=== PATIENT | female | born 1945 | race Caucasian/White ===

== ENCOUNTER → 2018-05-08 12:09 | Outpatient (CLI) | payer OTHER, SELFPAY ==
[2018-05-08 14:14] LABS: Cholesterol 195 mg/dL (140-199); HDL Cholesterol 69 mg/dL (40-60); LDL Cholesterol Calculated 102 mg/dL (<100); Triglycerides 122 mg/dL (35-150)
== END ==
PROVIDERS: PCP Family Medicine; Visit Provider Internal Medicine Cardiovascular Disease
DX: I10 Essential (primary) hypertension (principal)
CPT/HCPCS: 36415; 80061

== ENCOUNTER → 2018-08-16 11:33 | Outpatient (CLI) | payer OTHER, SELFPAY ==
--- NOTE | 2018-08-16 | DI.MG.S_ITS ---
BILATERAL DIGITAL SCREENING MAMMOGRAM 3D/2D WITH CAD: 08/16/2018 CLINICAL: Routine screening. Family history of breast cancer. Comparison is made to exams dated: 08/09/2017 mammogram, 08/02/2016 mammogram, and 08/01/2015 mammogram - [facility]. The tissue of both breasts is heterogeneously dense. This may lower the sensitivity of mammography. Current study was also evaluated with a Computer Aided Detection (CAD) system. There is a mole marker on the right breast. No significant masses, calcifications, or other findings are seen in either breast. There has been no significant interval change. IMPRESSION: NEGATIVE There is no mammographic evidence of malignancy. A 1 year screening mammogram is recommended. This exam was interpreted at Station ID: [id number]. NOTE: For mammograms, a report in lay terms will be sent to the patient. Approximately 15% of breast malignancies will not be visualized mammographically. In the management of a palpable breast mass, a negative mammogram must not discourage biopsy of a clinically suspicious lesion. Electronically Signed By: Heron beck/fritz:08/18/2018 17:39:32 letter sent: Normal Exam ACR BI-RADS Category 1: Negative 3341F
== END ==
PROVIDERS: PCP Family Medicine; Visit Provider Family Medicine
DX: Z12.31 Encounter for screening mammogram for malignant neoplasm of breast (principal); Z80.3 Family history of malignant neoplasm of breast
CPT/HCPCS: 77063; 77067

== ENCOUNTER → 2018-09-11 13:15 | Outpatient (CLI) | payer OTHER, SELFPAY ==
[2018-09-11 13:58] LABS: Add Manual Diff / Slide Review NO; Basophils Absolute Auto 100 /uL (0-100); Basophils Percent Auto 1.2 % (0-2); Eosinophils Absolute Auto 100 /uL (0-450); Eosinophils Percent Auto 1.3 % (2-4); Hematocrit 40.1 % (36-46); Lymphocytes Absolute Auto 1900 /uL (1100-4500); Lymphocytes Percent Auto 40.7 % (25-40); Mean Corpuscular HGB Conc 32.5 % (30-36); Mean Corpuscular Hemoglobin 29.9 PG (26-34); Monocytes Absolute Auto 400 /uL (0-900); Monocytes Percent Auto 8.1 % (3-14); Neutrophils Absolute Auto 2200 /uL (1500-7000); Neutrophils Percent Auto 48.7 % (50-75); Platelet Count 233 X10^3/uL (150-400); Red Blood Cell Count 4.36 X10^6/uL (4.0-5.2); Red Cell Distribution Width 14.6 % (11.6-14.8); White Blood Cell Count 4.6 X10^3/uL (4.5-11.0)
[2018-09-11 14:14] LABS: Alanine Aminotransferase 27 IU/L (9-52); Albumin 4.3 g/dL (3.5-5.0); Albumin Globulin Ratio 1.7 (1.0-2.8); Alkaline Phosphatase 72 U/L (38-126); Aspartate Aminotransferase 24 IU/L (14-36); BUN Creatinine Ratio 28.8 (6-22); Bilirubin Total 0.4 mg/dL (0.2-1.3); Blood Urea Nitrogen 23 mg/dL (7-17); Calcium 10.1 mg/dL (8.4-10.2); Carbon Dioxide 28 mmol/L (22-32); Chloride 103 mmol/L (98-107); Estimated Glomerular Filt Rate > 60.0 mL/min (>60); Globulin 2.6 g/dL (1.7-4.1); Glucose 107 mg/dL (80-110); HEMOLYSIS < 15 (0-50); Potassium 4.1 mmol/L (3.4-5.1); Sodium 140 mmol/L (137-145); Total Protein 6.9 g/dL (6.3-8.2)
[2018-09-11 15:18] LABS: Folate 8.8 ng/mL (2.76-20.0); Vitamin B12 634 pg/mL (239-931)
== END ==
PROVIDERS: PCP Family Medicine; Visit Provider Family Medicine
DX: G62.9 Polyneuropathy, unspecified (principal)
CPT/HCPCS: 36415; 80053; 82607; 82746; 85025

== ENCOUNTER → 2019-01-08 11:27 | Outpatient (CLI) | payer OTHER, SELFPAY ==
[2019-01-08 14:05] LABS: Hematocrit 38.6 % (36-46); Hemoglobin 12.7 g/dL (12.0-16.0); Mean Corpuscular HGB Conc 32.9 % (30-36); Mean Corpuscular Hemoglobin 29.5 PG (26-34); Mean Corpuscular Volume 89.5 fL (80-100); Platelet Count 236 X10^3/uL (150-400); Red Blood Cell Count 4.31 X10^6/uL (4.0-5.2); Red Cell Distribution Width 14.4 % (11.6-14.8)
[2019-01-08 14:49] LABS: Blood Urea Nitrogen 25 mg/dL (7-17); Calcium 10.5 mg/dL (8.4-10.2); Carbon Dioxide 26 mmol/L (22-32); Chloride 104 mmol/L (98-107); Estimated Glomerular Filt Rate 54.1 mL/min (>60); Glucose 93 mg/dL (80-110); HEMOLYSIS < 15 (0-50); Potassium 4.1 mmol/L (3.4-5.1); Sodium 141 mmol/L (137-145)
== END ==
PROVIDERS: PCP Family Medicine; Visit Provider Family Medicine
DX: R42 Dizziness and giddiness (principal)
CPT/HCPCS: 36415; 80048; 85027

== ENCOUNTER 2019-09-13 20:07 | Emergency (ER) | payer OTHER, SELFPAY ==
[2019-09-13] VITALS (7 sets, daily range): BP systolic 109–133; BP diastolic 65–81; PULSE 58–112; RESP 9–19; TEMP 36.7; O2SAT 95–99
--- NOTE | 2019-09-13 20:17 | DI.RAD.S_ITS ---
PROCEDURE: XR CHEST 1V INDICATIONS: chest pain TECHNIQUE: One view of the chest was acquired. COMPARISON: [facility], CR, XR CHEST 1 VIEW, 02/08/2018, 13:46. FINDINGS: Surgical changes and devices: None. Lungs and pleura: Lungs are clear. No pleural effusions or pneumothorax. Mediastinum: Mediastinal contours appear normal. Heart size is normal. Bones and chest wall: No suspicious bony lesions. Overlying soft tissues appear unremarkable. IMPRESSION: No acute cardiopulmonary abnormality. Dictated by: Neftaly Crane M.D. on 09/13/2019 at 20:47 Approved by: Neftaly Crane M.D. on 09/13/2019 at 20:48
[2019-09-13 20:30] LABS: Add Manual Diff / Slide Review NO; Basophils Absolute Auto 100 /uL (0-100); Basophils Percent Auto 1.4 % (0-2); Eosinophils Absolute Auto 100 /uL (0-450); Eosinophils Percent Auto 1.4 % (2-4); Hematocrit 37.6 % (36-46); Hemoglobin 12.9 g/dL (12.0-16.0); Lymphocytes Absolute Auto 1700 /uL (1100-4500); Mean Corpuscular HGB Conc 34.3 % (30-36); Mean Corpuscular Volume 90.3 fL (80-100); Monocytes Absolute Auto 400 /uL (0-900); Monocytes Percent Auto 7.7 % (3-14); Neutrophils Absolute Auto 2500 /uL (1500-7000); Neutrophils Percent Auto 52.5 % (50-75); Platelet Count 220 X10^3/uL (150-400); Red Blood Cell Count 4.16 X10^6/uL (4.0-5.2); Red Cell Distribution Width 14.7 % (11.6-14.8); White Blood Cell Count 4.7 X10^3/uL (4.5-11.0)
[2019-09-13] MEDS: SODIUM CHLORIDE 0.9% 1,000 ML 150 ML IV (20:35)
[2019-09-13 20:42] LABS: Blood Urea Nitrogen 24 mg/dL (7-17); Calcium 10.3 mg/dL (8.4-10.2); Carbon Dioxide 24 mmol/L (22-32); Chloride 107 mmol/L (98-107); Creatine Kinase 41 U/L (30-135); Estimated Glomerular Filt Rate > 60.0 mL/min (>60); Glucose 122 mg/dL (80-110); HEMOLYSIS 30 (0-50); Magnesium 1.9 mg/dL (1.6-2.3); Potassium 3.6 mmol/L (3.4-5.1); Sodium 139 mmol/L (137-145)
[2019-09-13 20:51] LABS: D Dimer < 200 ng/mL (<230)
[2019-09-13 20:54] LABS: Troponin I < 0.012 ng/mL (0.01-0.034)
[2019-09-13 21:29] LABS: Thyroid Stimulating Hormone 2.51 uIU/mL (0.47-4.68)
--- NOTE | 2019-09-13 22:52 | ED.ARRPALP ---
HPI - Arrhythmia/Palpitations General Chief Complaint: Arrhythmia/Palpitations Stated Complaint: AFIB episode Time Seen by Provider: 09/13/19 20:07 Source: patient Mode of arrival: Family Vehicle Limitations: no limitations History of Present Illness HPI narrative: 73-year-old female former smoker with a history AFib and hypertension presents with her in the chief complaint of palpitations, rapid heart rate and some shortness of breath which started about 12 hours ago. She is anticoagulated and states this is very reminiscent of prior episodes of AFib. She denies any chest pain. She denies fever or chills. She denies any nausea, vomiting or diarrhea. MD complaint: rapid heart beat and palpitations Onset (ago): hour(s) Duration: constant Severity: moderate Arrhythmia history: atrial fibrillation Related Data Home Medications Medication Instructions Recorded Confirmed ATENOLOL (Tenormin) 25 mg PO EVERY DAY #0 10/21/10 Losartan Potassium (Cozaar) 0 mg PO BID #0 10/21/10 Venlafaxine Hydrochloride (Effexor) 150 mg PO Q DAY #0 10/21/10 Allergies Allergy/AdvReac Type Severity Reaction Status Date / Time azithromycin [AZITHROMYCIN] Allergy Unknown Verified 09/13/19 20:20 iodine [IODINE] Allergy Unknown Verified 09/13/19 20:20 Review of Systems Constitutional Constitutional: Denies chills, Denies fatigue, Denies fever(s), Denies frequent falls, Denies lethargy and Denies weakness Eyes Eyes: Denies change in vision, Denies eye discharge, Denies irritation and Denies loss of vision ENT Ears, Nose, Mouth, and Throat: Denies change in voice, Denies dizziness, Denies neck pain, Denies sore throat and Denies throat swelling Cardiovascular Cardiovascular: Denies chest pain, Reports rapid heart rate, Reports irregular heart rhythm, Denies lightheadedness, Reports palpitations, Denies dyspnea, Denies dyspnea on exertion and Denies orthopnea Respiratory Respiratory: Denies cough, Denies dyspnea, Denies dyspnea on exertion and Denies wheezing Gastrointestinal Gastrointestinal: Denies abdominal pain, Denies change in bowel habits, Denies diarrhea, Denies nausea and Denies vomiting Genitourinary Genitourinary: Denies hematuria, Denies flank pain, Denies urinary incontinence and Denies urinary urgency Musculoskeletal Musculoskeletal: Denies back pain, Denies muscle weakness, Denies neck pain, Denies numbness and Denies tingling Integumentary/Breasts Skin/Breast: Denies pruritus, Denies erythema, Denies rash and Denies wounds Neurologic Neurologic: Denies behavioral changes, Denies confusion, Denies dizziness, Denies frequent falls, Denies loss of vision, Denies numbness, Denies tingling and Denies weakness Psychiatric Psychiatric: Denies anxiety, Denies behavioral changes, Denies confusion, Denies depression, Denies homicidal ideation and Denies suicidal ideation Endocrine Endocrine: Denies fatigue, Denies flushing and Reports palpitations Hematologic/Lymphatic Hematologic/Lymphatic: Denies easy bruising Allergic/Immunologic Allergic/Immunologic: Denies urticaria, Denies throat swelling and Denies wheezing Patient History Social History Smoking Status: Former smoker Smoking Status: Former smoker alcohol intake frequency: 0-2 drinks per day Alcohol type: wine Substance Use Type: does not use Exam Narrative Exam Narrative: GENERAL: [73] year old patient appears stated age. Well-nourished, well-developed patient, in mild distress. HEAD: Atraumatic. Normocephalic. EYES: Pupils equal round and reactive. Extraocular motions intact. No scleral icterus. No injection or drainage. ENT: Nose without bleeding, purulent drainage. Throat without erythema, tonsillar hypertrophy or exudate. Airway patent. NECK: Trachea midline. Non tender CARDIOVASCULAR: Regular rate and rhythm without murmurs, gallops, or rubs. RESPIRATORY: Clear to auscultation. Breath sounds equal bilaterally. No wheezes, rales, or rhonchi. GASTROINTESTINAL: Abdomen soft, non-tender, nondistended. EXTREMITIES: No edema or joint tenderness. BACK: Nontender without deformity or crepitance. No flank tenderness. NEURO: AOx3. SKIN: No rash or erythema of visible areas Initial Vital Signs Initial Vital Signs: Vital Signs Temperature 98.1 F 09/13/19 20:17 Pulse Rate 99 H 09/13/19 20:17 Respiratory Rate 18 09/13/19 20:17 Blood Pressure 133/81 09/13/19 20:17 Pulse Oximetry 99 09/13/19 20:17 Course Orders Ordered: ED Orders 09/13/19 22:45 Troponin I Stat 09/14/19 EKG-12 Lead Stat Discontinued Medications Sodium Chloride (Normal Saline 0.9%) 1,000 mls @ 150 mls/hr IV CONT JAMIE Last Admin: 09/13/19 20:35 Dose: 150 mls/hr Documented by: SALVADOR Vital Signs Vital signs: Vital Signs - 8 hr 09/13/19 22:58 09/13/19 23:24 09/14/19 00:26 Pulse Rate 89 58 L 62 Respiratory Rate 13 13 15 Blood Pressure [Left Arm] 116/81 117/70 123/63 Pulse Oximetry 96 94 MDM - Arrhythmia/Palpitations Lab Data Result diagrams: 09/13/19 20:20 09/13/19 20:20 Labs: Lab Results 09/13/19 09/13/19 09/13/19 Range/Units 20:20 20:20 20:20 WBC 4.7 (4.5-11.0) X10^3/uL RBC 4.16 (4.0-5.2) X10^6/uL Hgb 12.9 (12.0-16.0) g/dL Hct 37.6 (36-46) % MCV 90.3 (80-100) fL MCH 31.0 (26-34) PG MCHC 34.3 (30-36) % RDW 14.7 (11.6-14.8) % Plt Count 220 (150-400) X10^3/uL Neut % (Auto) 52.5 (50-75) % Lymph % (Auto) 37.0 (25-40) % [place] % (Auto) 7.7 (3-14) % Eos % (Auto) 1.4 L (2-4) % Baso % (Auto) 1.4 (0-2) % Neut # (Auto) 2500 (5678-2206) /uL Lymph # (Auto) 1700 (4067-3681) /uL [place] # (Auto) 400 (0-900) /uL Eos # (Auto) 100 (0-450) /uL Baso # (Auto) 100 (0-100) /uL D-Dimer (<230) ng/mL Sodium 139 (137-145) mmol/L Potassium 3.6 (3.4-5.1) mmol/L Chloride 107 (98-107) mmol/L Carbon Dioxide 24 (22-32) mmol/L BUN 24 H (7-17) mg/dL Creatinine 0.80 (0.52-1.04) mg/dL Estimated GFR > 60.0 (>60) mL/min BUN/Creatinine Ratio 30.0 H (6-22) Glucose 122 H (80-110) mg/dL Calcium 10.3 H (8.4-10.2) mg/dL Magnesium 1.9 (1.6-2.3) mg/dL Total Creatine Kinase 41 (30-135) U/L CK-MB (CK-2) TNP CK-MB (CK-2) Rel Index TNP Troponin I < 0.012 (0.01-0.034) ng/mL TSH 2.51 (0.47-4.68) uIU/mL 09/13/19 09/13/19 Range/Units 20:20 22:45 WBC (4.5-11.0) X10^3/uL RBC (4.0-5.2) X10^6/uL Hgb (12.0-16.0) g/dL Hct (36-46) % MCV (80-100) fL MCH (26-34) PG MCHC (30-36) % RDW (11.6-14.8) % Plt Count (150-400) X10^3/uL Neut % (Auto) (50-75) % Lymph % (Auto) (25-40) % [place] % (Auto) (3-14) % Eos % (Auto) (2-4) % Baso % (Auto) (0-2) % Neut # (Auto) (0035-9413) /uL Lymph # (Auto) (2691-4774) /uL [place] # (Auto) (0-900) /uL Eos # (Auto) (0-450) /uL Baso # (Auto) (0-100) /uL D-Dimer < 200 (<230) ng/mL Sodium (137-145) mmol/L Potassium (3.4-5.1) mmol/L Chloride (98-107) mmol/L Carbon Dioxide (22-32) mmol/L BUN (7-17) mg/dL Creatinine (0.52-1.04) mg/dL Estimated GFR (>60) mL/min BUN/Creatinine Ratio (6-22) Glucose (80-110) mg/dL Calcium (8.4-10.2) mg/dL Magnesium (1.6-2.3) mg/dL Total Creatine Kinase (30-135) U/L CK-MB (CK-2) CK-MB (CK-2) Rel Index Troponin I < 0.012 (0.01-0.034) ng/mL TSH (0.47-4.68) uIU/mL ECG Data Attestation: I personally reviewed and interpreted this ECG as follows: Interpretation: EKG is normal sinus rhythm rate [ 96] and free of any signs of ischemia or ectopy. No ST segmental elevation or depression. No T wave inversions MDM Narrative Medical decision making narrative: Based on patient's history and symptoms initial concern was for rapid AFib, initial EKG notes sinus tachycardia. Labs were very reassuring including 2 troponins. Patient's heart rate gradually slowed back to her normal at about 60 and patient was completely asymptomatic. Multiple etiologies including resolved AFib, pulmonary embolism, cardiac ischemia considered but thought less likely given labs, imaging and EKG. Discharge Plan Departure Patient Disposition: Home Clinical Impression: Sinus tachycardia, Palpitations Discharge Date/Time: 09/14/19 00:59 Instructions: Arrhythmias Activity Restrictions/Additional Instructions: *You have been diagnosed with [palpitations, relative tachycardia] *What to do: *Take medications as directed *Follow up with your primary care provider on Saturday as planned. Let them know you were seen in the Emergency Department and that we ask that you be seen in follow up *Return to ER if you should have any new, worsening or concerning symptoms Prescriptions: No Action ATENOLOL (Tenormin) 25 mg PO EVERY DAY Qty: 0 RF: 0 Losartan Potassium (Cozaar) 0 mg PO BID Qty: 0 RF: 0 Venlafaxine Hydrochloride (Effexor) 150 mg PO Q DAY Qty: 0 RF: 0 Referrals: Stella Aldrich MD [Primary Care Provider] -
[2019-09-13 23:14] LABS: Troponin I < 0.012 ng/mL (0.01-0.034)
[2019-09-14 00:26] VITALS: BP 123/63; PULSE 62; RESP 15; O2SAT 94
== END 2019-09-14 00:59 | disposition home or self-care (01) ==
PROVIDERS: Emergency Provider Emergency Medicine; PCP Family Medicine
DX: R00.0 Tachycardia, unspecified (principal); R00.2 Palpitations
CPT/HCPCS: 36415; 71045; 80048; 82550; 83735; 84443; 84484; 85025; 85379; 93005; 93010; 99284; 99285

== ENCOUNTER → 2019-09-21 11:43 | Outpatient (CLI) | payer OTHER, SELFPAY ==
--- NOTE | 2019-09-21 | DI.MG.S_ITS ---
BILATERAL DIGITAL SCREENING MAMMOGRAM 3D/2D WITH CAD: 09/21/2019 CLINICAL: Routine screening. Family history of breast cancer. Comparison is made to exams dated: 08/16/2018 mammogram, 08/09/2017 mammogram, and 08/02/2016 mammogram - [facility]. The tissue of both breasts is heterogeneously dense. This may lower the sensitivity of mammography. Current study was also evaluated with a Computer Aided Detection (CAD) system. There is a mole marker on the right breast. No significant masses, calcifications, or other findings are seen in either breast. There has been no significant interval change. IMPRESSION: NEGATIVE There is no mammographic evidence of malignancy. A 1 year screening mammogram is recommended. This exam was interpreted at Station ID: [id number]. NOTE: For mammograms, a report in lay terms will be sent to the patient. Approximately 15% of breast malignancies will not be visualized mammographically. In the management of a palpable breast mass, a negative mammogram must not discourage biopsy of a clinically suspicious lesion. Electronically Signed By: Johnathan quiñonez/fritz:09/21/2019 15:04:46 letter sent: Normal Exam ACR BI-RADS Category 1: Negative 3341F
== END ==
PROVIDERS: PCP Family Medicine; Visit Provider Family Medicine
DX: Z12.31 Encounter for screening mammogram for malignant neoplasm of breast (principal); Z80.3 Family history of malignant neoplasm of breast
CPT/HCPCS: 77063; 77067

== ENCOUNTER → 2020-10-17 15:56 | Outpatient (CLI) | payer OTHER, SELFPAY ==
[2020-10-17 17:20] LABS: BUN Creatinine Ratio 21.6 (6-22); Blood Urea Nitrogen 21 mg/dL (7-17); Calcium 9.9 mg/dL (8.4-10.2); Carbon Dioxide 29 mmol/L (22-32); Chloride 104 mmol/L (98-107); Estimated Glomerular Filt Rate 55.8 mL/min (>60); Glucose 97 mg/dL (80-110); HEMOLYSIS < 15 (0-50); Magnesium 2.2 mg/dL (1.6-2.3); Potassium 4.1 mmol/L (3.4-5.1); Sodium 138 mmol/L (137-145)
[2020-10-17 18:59] LABS: Free T4, Direct Thyroxine 1.08 ng/dL (0.78-2.19)
== END ==
PROVIDERS: PCP Family Medicine; Referring Provider Psychiatry & Neurology Neurology; Visit Provider Psychiatry & Neurology Neurology
DX: E83.42 Hypomagnesemia (principal); I48.91 Unspecified atrial fibrillation
CPT/HCPCS: 36415; 80048; 83735; 84439; 84443

== ENCOUNTER → 2020-10-19 08:56 | Outpatient (CLI) | payer OTHER, SELFPAY ==
[2020-10-19 10:25] LABS: Glucose Fasting 104 mg/dL (80-110)
[2020-10-19 11:21] LABS: Glucose Tol Interpretation INTERPRETATION
[2020-10-19 11:26] LABS: Glucose 1 Hour 174 mg/dL (70-170)
[2020-10-19 12:01] LABS: Glucose 2 Hour 109 mg/dL (70-140)
== END ==
PROVIDERS: PCP Family Medicine; Referring Provider Psychiatry & Neurology Neurology; Visit Provider Psychiatry & Neurology Neurology
DX: G60.9 Hereditary and idiopathic neuropathy, unspecified (principal)
CPT/HCPCS: 36415; 82951; 82952

== ENCOUNTER → 2020-12-26 11:29 | Outpatient (CLI) | payer OTHER, SELFPAY ==
--- NOTE | 2020-12-26 | DI.MG.S_ITS ---
BILATERAL DIGITAL SCREENING MAMMOGRAM 3D/2D WITH CAD: 12/26/2020 CLINICAL: Routine screening. Family history of breast cancer. Comparison is made to exams dated: 09/21/2019 mammogram, 08/16/2018 mammogram, and 08/09/2017 mammogram - [facility]. The tissue of both breasts is heterogeneously dense. This may lower the sensitivity of mammography. Current study was also evaluated with a Computer Aided Detection (CAD) system. There is a mole marker on the right breast. No significant masses, calcifications, or other findings are seen in either breast. There has been no significant interval change. IMPRESSION: NEGATIVE There is no mammographic evidence of malignancy. A 1 year screening mammogram is recommended. This exam was interpreted at Station ID: [id number]. NOTE: For mammograms, a report in lay terms will be sent to the patient. Approximately 15% of breast malignancies will not be visualized mammographically. In the management of a palpable breast mass, a negative mammogram must not discourage biopsy of a clinically suspicious lesion. Electronically Signed By: Romulo Edwards M.D., jr/fritz:12/26/2020 14:49:19 letter sent: Normal Exam ACR BI-RADS Category 1: Negative 3341F
[2020-12-27 16:59] LABS: Deamidated Gliadin Ab IgA 3 units (0-19); Deamidated Gliadin Ab IgG <1 units (0-19); Immunoglobulin A,Qn 238 mg/dL (64-422); t-Transglutaminase IgA <2 U/mL (0-3)
[2020-12-28 02:37] LABS: Vitamin B6 57.4 ug/L (2.0-32.8)
== END ==
PROVIDERS: PCP Family Medicine; Referring Provider Family Medicine; Visit Provider Family Medicine
DX: Z12.31 Encounter for screening mammogram for malignant neoplasm of breast (principal); Z80.3 Family history of malignant neoplasm of breast; G60.9 Hereditary and idiopathic neuropathy, unspecified
CPT/HCPCS: 36415; 77063; 77067; 82784; 83516; 83655; 84207

== ENCOUNTER → 2021-01-11 11:58 | Outpatient (CLI) | payer OTHER, SELFPAY ==
--- NOTE | 2021-01-11 12:00 | DI.MRI.S_ITS ---
PROCEDURE: MR LUMBAR SPINE WO CON INDICATIONS: Lumbago with sciatica, left side TECHNIQUE: Noncontrast sagittal T1 spin echo and T2 fast echo, sagittal STIR, axial T1 and T2 fast spin echo through the lumbar spine. In cases with scoliosis, additional coronal T2 fast spin echo may be performed. COMPARISON: None. FINDINGS: Image quality: Excellent. Alignment and Curvature: Grade 1 retrolisthesis of T12 on L1. Grade 1 anterolisthesis of L4 on L5. Bone Marrow: No evidence of acute fracture. There are scattered small Schmorl's nodes which appear chronic. Spinal Cord: Conus medullaris terminates at the L1 level. Visualized cord demonstrates normal signal and size. Paraspinous Soft Tissues: No paravertebral masses. There is nonspecific, dependent posterior subcutaneous soft tissue edema from level of L2-L5 level T12-L1: Mild canal narrowing. Lateral recesses appear patent. Moderate bilateral foraminal stenoses. L1-L2: Minimal canal narrowing. Lateral recesses appear grossly patent. Mild bilateral foraminal stenoses L2-L3: Dorsal epidural lipomatosis is noted. There is [id number] canal narrowing. Mild left foraminal stenosis. Moderate left foraminal narrowing with nerve root compression. L3-L4: Moderate to severe canal narrowing. Partial effacement of both lateral recesses with bilaterally symmetric appearance. Mild left foraminal stenosis with slight nerve root compression. Mild right foraminal narrowing. Minimal dorsal epidural lipomatosis is seen. L4-L5: Severe canal stenosis. Near complete effacement of both lateral recesses with bilaterally symmetric appearance. Mild right foraminal narrowing. Minimal left foraminal stenosis. L5-S1: [id number] canal narrowing. Partial effacement of both lateral recesses with bilaterally symmetric appearance. Severe bilateral foraminal stenoses with nerve root compression. IMPRESSION: Diffuse lumbar spondylosis and facet arthropathy with moderate to severe canal narrowing at L3-L4, and severe canal stenosis at L4-L5. Numerous bilateral foraminal stenoses as detailed above by spinal level, most severe at L5-S1 . Dictated by: Christopher Kumar M.D. on 01/11/2021 at 12:48 Approved by: Christopher Kumar M.D. on 01/11/2021 at 12:56
== END ==
PROVIDERS: PCP Family Medicine; Referring Provider Psychiatry & Neurology Neurology; Visit Provider Psychiatry & Neurology Neurology
DX: M54.42 Lumbago with sciatica, left side (principal); M47.816 Spondylosis without myelopathy or radiculopathy, lumbar region; M48.061 Spinal stenosis, lumbar region without neurogenic claudication; M48.07 Spinal stenosis, lumbosacral region; G60.9 Hereditary and idiopathic neuropathy, unspecified; N39.46 Mixed incontinence; G89.29 Other chronic pain
CPT/HCPCS: 72148

== ENCOUNTER 2021-03-02 10:46 | Emergency (ER) | payer OTHER, SELFPAY ==
[2021-03-02] VITALS (8 sets, daily range): BP systolic 132–164; BP diastolic 62–69; PULSE 53–60; RESP 12–20; O2SAT 96–99
--- NOTE | 2021-03-02 10:59 | DI.RAD.S_ITS ---
PROCEDURE: XR CHEST 1V INDICATIONS: chest pain TECHNIQUE: One view of the chest was acquired. COMPARISON: [facility], CR, XR CHEST 1V, 09/13/2019, 20:31. FINDINGS: Surgical changes and devices: None. Lungs and pleura: Lungs are mildly abnormal with a slight degree of interstitial prominence perhaps reflecting prior smoking. This is stable over time.. No pleural effusions or pneumothorax. Mediastinum: Mediastinal contours appear normal. Heart size is normal. Bones and chest wall: No suspicious bony lesions. Overlying soft tissues appear unremarkable. IMPRESSION: Mild interstitial prominence, possible prior smoking history. A definite source of new chest pain is not found, however. Dictated by: Roel Kennedy M.D. on 03/02/2021 at 11:27 Approved by: Roel Kennedy M.D. on 03/02/2021 at 11:37
[2021-03-02 11:22] LABS: Add Manual Diff / Slide Review NO; Basophils Absolute Auto 100 /uL (0-100); Basophils Percent Auto 1.2 % (0-2); Eosinophils Absolute Auto 100 /uL (0-450); Eosinophils Percent Auto 1.7 % (2-4); Hematocrit 36.6 % (36-46); Hemoglobin 12.1 g/dL (12.0-16.0); Lymphocytes Absolute Auto 1200 /uL (1100-4500); Lymphocytes Percent Auto 26.9 % (25-40); Mean Corpuscular HGB Conc 32.9 % (30-36); Mean Corpuscular Hemoglobin 30.5 PG (26-34); Mean Corpuscular Volume 92.6 fL (80-100); Monocytes Absolute Auto 300 /uL (0-900); Monocytes Percent Auto 7.7 % (3-14); Neutrophils Absolute Auto 2800 /uL (1500-7000); Neutrophils Percent Auto 62.5 % (50-75); Platelet Count 214 X10^3/uL (150-400); Red Blood Cell Count 3.96 X10^6/uL (4.0-5.2); Red Cell Distribution Width 14.7 % (11.6-14.8); White Blood Cell Count 4.5 X10^3/uL (4.5-11.0)
[2021-03-02 11:39] LABS: Alanine Aminotransferase 16 IU/L (<35); Albumin 3.8 g/dL (3.5-5.0); Albumin Globulin Ratio 1.5 (1.0-2.8); Alkaline Phosphatase 78 U/L (38-126); Aspartate Aminotransferase 23 IU/L (14-36); BUN Creatinine Ratio 23.2 (6-22); Bilirubin Total 0.4 mg/dL (0.2-1.3); Blood Urea Nitrogen 22 mg/dL (7-17); Calcium 9.8 mg/dL (8.4-10.2); Carbon Dioxide 27 mmol/L (22-32); Chloride 110 mmol/L (98-107); Creatine Kinase 61 U/L (30-135); Globulin 2.5 g/dL (1.7-4.1); Glucose 104 mg/dL (80-110); HEMOLYSIS < 15 (0-50); Lipase 166 U/L (23-300); Potassium 4.2 mmol/L (3.4-5.1); Sodium 142 mmol/L (137-145); Total Protein 6.3 g/dL (6.3-8.2)
[2021-03-02 11:48] LABS: Troponin I < 0.012 ng/mL (0.01-0.034)
[2021-03-02 13:54] LABS: Troponin I < 0.012 ng/mL (0.01-0.034)
--- NOTE | 2021-03-02 14:14 | ED_ITS ---
HPI - Chest Pain General Chief Complaint: Chest Pain Stated Complaint: HEART ATTACK SYMPTOMS Time Seen by Provider: 03/02/21 12:22 Source: patient Mode of arrival: Ambulatory Limitations: no limitations History of Present Illness HPI narrative: This is a 75-year-old female comes emergency department with complaint of developing chest tightness and into her throat this morning about 0915. Patient states it continued for about 30 minutes and then resolved. She felt a little short of breath. She was not diaphoretic. She did not have any syncope but felt mildly lightheaded. No nausea or vomiting. No abdominal pain, no radiation of pain to her back, neck arm or abdomen. Patient states she has noticed some mild swelling in her feet which she saw her primary care for last week. Patient states she was traveling home have to having carpal tunnel test. Patient does have a history of hypertension and atrial fibrillation. Patient states she takes Pradaxa, metoprolol, amlodipine, flecainide as well as kelli lafaxine for an antidepressant. She has a history of bilateral knee replacement, she had a stress test in the last 2 years, she has never had a cardiac catheterization, no prior ablation, no cardiac stents. She follows with Dr. Loya for Cardiology at [facility]. Tobacco, occasional alcohol, no i llicit. Related Data Home Medications Medication Instructions Recorded Confirmed ATENOLOL (Tenormin) 25 mg PO EVERY DAY #0 10/21/10 Losartan Potassium (Cozaar) 0 mg PO BID #0 10/21/10 Venlafaxine Hydrochloride (Effexor) 150 mg PO Q DAY #0 10/21/10 Allergies Allergy/AdvReac Type Severity Reaction Status Date / Time azithromycin [AZITHROMYCIN] Allergy Unknown Verified 09/13/19 20:20 iodine [IODINE] Allergy Unknown Verified 09/13/19 20:20 Review of Systems Review of Systems ROS Unobtainable: All systems reviewed & are unremarkable except as noted in HPI and below Patient History Social History Smoking Status: Former smoker Smoking Status: Former smoker alcohol intake frequency: 0-2 drinks per day Alcohol type: wine Substance Use Type: does not use Exam Narrative Exam Narrative: GENERAL: Alert and oriented x three, female in mild distress. HEENT: Head normocephalic, atraumatic, EOMI, pupils reactive, face symmetric, moist mucous membranes NECK: Supple, full range of motion CARDIOVASCULAR: Regular rate and rhythm without murmurs, rubs or gallops. Non reproducible chest pain. RESPIRATORY: Breath sounds equal bilaterally, no wheezes rales or rhonchi. ABDOMEN: Soft, nontender. Normoactive bowel sounds all 4 quadrants. No guarding or rebound, rigidity, no mass : No CVA tenderness EXTREMITIES: Normal range of motion, mild pedal edema. Neurovascularly intact NEUROLOGICAL: Cranial nerves II through XII grossly intact. Moving all extremities SKIN: Warm, dry, no petechiae, no rashes or lesions. Initial Vital Signs Initial Vital Signs: Vital Signs Pulse Rate 60 03/02/21 10:59 Respiratory Rate 16 03/02/21 10:59 Blood Pressure 132/62 03/02/21 10:59 Pulse Oximetry 97 03/02/21 10:59 Course Orders Ordered: ED Orders 03/02/21 13:21 Troponin I Stat 03/02/21 13:46 EKG-12 Lead Stat Vital Signs Vital signs: Vital Signs - 8 hr 03/02/21 13:34 03/02/21 14:00 03/02/21 14:01 Pulse Rate 54 L 53 L 53 L Respiratory Rate 14 12 20 Blood Pressure 145/66 H 164/69 H Pulse Oximetry 98 96 97 03/02/21 14:30 03/02/21 14:31 03/02/21 15:00 Pulse Rate 53 L 53 L 58 L Respiratory Rate 19 17 15 Blood Pressure 155/68 H Pulse Oximetry 99 99 96 03/02/21 15:01 Pulse Rate 54 L Respiratory Rate 15 Blood Pressure 145/67 H Pulse Oximetry 98 MDM - Chest Pain Lab Data Result diagrams: 03/02/21 11:13 03/02/21 11:13 Labs: Lab Results 03/02/21 03/02/21 03/02/21 Range/Units 11:13 11:13 13:21 WBC 4.5 (4.5-11.0) X10^3/uL RBC 3.96 L (4.0-5.2) X10^6/uL Hgb 12.1 (12.0-16.0) g/dL Hct 36.6 (36-46) % MCV 92.6 (80-100) fL MCH 30.5 (26-34) PG MCHC 32.9 (30-36) % RDW 14.7 (11.6-14.8) % Plt Count 214 (150-400) X10^3/uL Neut % (Auto) 62.5 (50-75) % Lymph % (Auto) 26.9 (25-40) % [place] % (Auto) 7.7 (3-14) % Eos % (Auto) 1.7 L (2-4) % Baso % (Auto) 1.2 (0-2) % Neut # (Auto) 2800 (5203-6044) /uL Lymph # (Auto) 1200 (0274-5509) /uL [place] # (Auto) 300 (0-900) /uL Eos # (Auto) 100 (0-450) /uL Baso # (Auto) 100 (0-100) /uL Sodium 142 (137-145) mmol/L Potassium 4.2 (3.4-5.1) mmol/L Chloride 110 H (98-107) mmol/L Carbon Dioxide 27 (22-32) mmol/L BUN 22 H (7-17) mg/dL Creatinine 0.95 (0.52-1.04) mg/dL Estimated GFR 57.0 L (>60) mL/min BUN/Creatinine Ratio 23.2 H (6-22) Glucose 104 (80-110) mg/dL Calcium 9.8 (8.4-10.2) mg/dL Total Bilirubin 0.4 (0.2-1.3) mg/dL AST 23 (14-36) IU/L ALT 16 (<35) IU/L Alkaline Phosphatase 78 (38-126) U/L Total Creatine Kinase 61 (30-135) U/L CK-MB (CK-2) TNP CK-MB (CK-2) Rel Index TNP Troponin I < 0.012 < 0.012 (0.01-0.034) ng/mL Total Protein 6.3 (6.3-8.2) g/dL Albumin 3.8 (3.5-5.0) g/dL Globulin 2.5 (1.7-4.1) g/dL Albumin/Globulin Ratio 1.5 (1.0-2.8) Lipase 166 (23-300) U/L Imaging Data Chest x-ray: Radiologist's Impression: [address], [place] [id number] ReportSigned Patient: Velvet Kim TMR#: [id number]: [id number]:[id number]/Sex: 75 / FDate of Service: 03/02/21Loc: EDAccession Number: [id number] Procedure: XR chest 1V Ordering Provider: Fouzia Roach D.O. PROCEDURE: XR CHEST 1V INDICATIONS: chest pain TECHNIQUE: One view of the chest was acquired. COMPARISON: [facility], , XR CHEST 1V, 09/13/2019, 20:31. FINDINGS: Surgical changes and devices: None. Lungs and pleura: Lungs are mildly abnormal with a slight degree of interstitial prominence perhaps reflecting prior smoking. This is stable over time.. No pleural effusions or pneumothorax. Mediastinum: Mediastinal contours appear normal. Heart size is normal. Bones and chest wall: No suspicious bony lesions. Overlying soft tissues appear unremarkable. IMPRESSION: Mild interstitial prominence, possible prior smoking history. A definite source of new chest pain is not found, however. Dictated by: Roel Kennedy M.D. on 03/02/2021 at 11:27 Approved by: Roel Kennedy M.D. on 03/02/2021 at 11:37 ECG Data Interpretation: Sinus rhythm first-degree AV block, left axis deviation, incomplete right bundle branch. Rate of 61 P are 212 QRS of 100 and QTC of 412. EKG 2. Shows a sinus rhythm sinus bradycardia first-degree AV block. Incomplete right bundle, left fascicular, rate of 55, P are 212 QRS of 100 and QTC of 420. No acute ST elevation or depression appreciated. [facility] Narrative Medical decision making narrative: Discussed with patient her symptoms are somewhat concerning for cardiac cause. Her EKGs appears similar to prior from [address] or ischemic changes and patient has negative troponin x2. Labs do not show any other acute changes besides elevated chloride and BUN which is mildly elevated. Patient has some mild interstitial prominence on her chest x-ray. Discussed with patient offered observation for cardiac chest pain but she prefers to return home. Patient is aware of my concerns. She does have cardiology available for short-term follow-up and is aware that urgent follow- up is necessary. 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 Call today or tomorrow to set up follow-up for evaluation of chest pain. Continue home medications as prescribed. Please return for new or worsening chest pain, shortness of breath, lightheadedness or passing out, sweatiness or diaphoresis, nausea or vomiting, new or worsening swelling of her extremities or other new or concerning symptoms. Prescriptions: No Action ATENOLOL (Tenormin) 25 mg PO EVERY DAY Qty: 0 RF: 0 Losartan Potassium (Cozaar) 0 mg PO BID Qty: 0 RF: 0 Venlafaxine Hydrochloride (Effexor) 150 mg PO Q DAY Qty: 0 RF: 0 Referrals: Emi Prince DO [Primary Care Provider] - Lucero Loya MD [Physician] -
== END 2021-03-02 15:24 | disposition home or self-care (01) ==
PROVIDERS: Emergency Provider Emergency Medicine; PCP Family Medicine
DX: R07.9 Chest pain, unspecified (principal); R06.02 Shortness of breath; R60.9 Edema, unspecified
CPT/HCPCS: 36415; 71045; 80053; 82550; 83690; 84484; 85025; 93005; 99283; 99284

== ENCOUNTER → 2021-05-09 09:05 | Outpatient (CLI) | payer OTHER, SELFPAY ==
--- NOTE | 2021-05-09 | DI.ECHO.S_ITS ---
[facility] +---------+ : : [address] : [address] : : : : [id number] : : : : Phone: [phone] Echocardiogram Report + + :Name: JAIMIE WEBER Study Date: 05/09/2021 Height: 66 in : :[facility] ReadingLocation: Weight: 203 lb : : Gender: Female BSA: 2.0 m2 : :: 1945 Age: 75 yrs BP: 157/88 mmHg: :Reason For Study: ATRIAL FIBRILLATION : :Ordering Physician: MOISES, : :ADA Performed By: Madelyn Asif : :Referring: ADA DE LEON : + + Interpretation Summary Normal sinus rhythm. Normal LV size, wall thickness, wall motion and LV systolic function. EF is 60-65%. Moderate LA enlargement; otherwise normal chamber sizes. Aortic sclerosis without stenosis. Otherwise no valvular abnormalities. No prior study available for comparison. Procedure: A two-dimensional transthoracic echocardiogram with color flow and Doppler was performed. The study quality was technically adequate. There is no prior echocardiogram noted for this patient. The patient was in sinus bradycardia with heart rates between 57-60 bpm during the exam. Left Ventricle: The left ventricle is normal in size and wall thickness. The ejection fraction is estimated to be 60-65%. Right Ventricle: The right ventricle grossly appears normal in size with probable normal systolic function. Atria: The left atrium is moderately dilated. Right atrial size is normal. There is no Doppler evidence for an interatrial shunt. Mitral Valve: The mitral valve is normal in structure and function. There is mild mitral regurgitation. Aortic Valve: The aortic valve is trileaflet. The aortic valve opens well. There is no aortic valve stenosis. No aortic regurgitation is present. Tricuspid Valve: The tricuspid valve is normal in structure and function. There is mild tricuspid regurgitation. The right ventricular systolic pressure is estimated to be at least 26 mmHg based on an estimated right atrial pressure of 3 mm Hg. Pulmonic Valve: The pulmonic valve is not well visualized. There is no pulmonic valvular regurgitation. Great Vessels: The aortic root is normal size. The dimensions of the ascending aorta are normal. The IVC is of normal diameter and collapses greater than 50% with a sniff. This suggests a low right atrial pressure of 3 mm Hg. Pericardium/ Pleura There is no pericardial effusion. There is no pleural effusion. MMode/2D Measurements & Calculations LVIDd: 4.8 cm LVOT diam: 2.1 cm LVIDs: 3.0 cm Ao root diam: 3.6 cm FS: 37.4 % asc Aorta Diam: 3.3 cm IVSd: 0.92 cm Ao Arch Diam (Prox Trans): 2.9 cm LVPWd: 0.80 cm LV lazo. diameter/BSA (cm/m^2): 2.4 LV sys. diameter/BSA (cm/m^2): 1.5 LA A2 area: 29.2 cm2 RA long axis: 5.1 cm LA A4 area: 21.3 cm2 RA area: 17.0 cm2 LA length (vol): 5.8 cm RA vol: 48.1 ml LA vol: 91.1 ml RA : 23.9 ml/m2 LA vol index: 45.2 ml/m2 IVC diam: 1.3 cm RVD1 (basal): 3.8 cm Doppler Measurements & Calculations Ao V2 max: 178.1 cm/sec LVOT Max Kash: 112.3 cm/sec Ao V2 mean: 119.8 cm/sec LV V1 max P.0 mmHg Ao max P.7 mmHg LV V1 VTI: 25.8 cm Ao mean P.5 mmHg BIMAL(I,D): 2.3 cm2 Ao V2 VTI: 37.8 cm BIMAL(V,D): 2.1 cm2 sev ratio: 0.68 BIMAL indexed to BSA (cm^2/m^2): 1.1 MV E max kash: 93.8 cm/sec TR max kash: 240.1 cm/sec MV A max kash: 98.2 cm/sec TR max P.2 mmHg MV E/A: 0.96 PA V2 max: 95.3 cm/sec Med Peak E' Kash: 6.9 cm/sec PA V2 mean: 63.4 cm/sec E/E' med: 13.6 PA mean P.8 mmHg Lat Peak E' Kash: 6.3 cm/sec PA pr(Accel): 46.5 mmHg E/E' lat: 14.8 E/e' average: 14.2 MV dec time: 0.21 sec SV(LVOT): 87.0 ml Electronically signed by: Ada De Leon M.D. on Reading Physician:05/10/2021 08:38 AM
== END ==
PROVIDERS: PCP Family Medicine; Referring Provider Internal Medicine; Visit Provider Internal Medicine
DX: I48.91 Unspecified atrial fibrillation (principal); I70.0 Atherosclerosis of aorta
CPT/HCPCS: 93306

== ENCOUNTER → 2021-07-03 13:39 | Outpatient (CLI) | payer OTHER, SELFPAY ==
[2021-07-03 17:20] LABS: COVID19 -Nasal RAPID Negative (Negative)
== END ==
PROVIDERS: PCP Family Medicine; Visit Provider Physician Assistant
DX: Z20.822 Contact with and (suspected) exposure to COVID-19 (principal); Z01.812 Encounter for preprocedural laboratory examination
CPT/HCPCS: 87635; C9803

== ENCOUNTER → 2021-07-04 15:09 | Outpatient (CLI) | payer OTHER, SELFPAY ==
[2021-07-04 17:36] LABS: Free T4, Direct Thyroxine 0.87 ng/dL (0.78-2.19)
[2021-07-04 17:40] LABS: BUN Creatinine Ratio 24.8 (6-22); Blood Urea Nitrogen 27 mg/dL (7-17); Calcium 9.9 mg/dL (8.4-10.2); Carbon Dioxide 26 mmol/L (22-32); Chloride 107 mmol/L (98-107); Estimated Glomerular Filt Rate 48.7 mL/min (>60); Glucose 109 mg/dL (80-110); HEMOLYSIS < 15 (0-50); Magnesium 2.1 mg/dL (1.6-2.3); Sodium 142 mmol/L (137-145)
[2021-07-04 17:49] LABS: Thyroid Stimulating Hormone 1.97 uIU/mL (0.47-4.68)
--- NOTE | 2021-07-04 18:27 | DI.NM.S_ITS ---
PROCEDURE PERFORMED: Exercise treadmill stress test without imaging. DATE OF PROCEDURE: July 04, 2021 ORDERING PROVIDER: Lucero Loya MD INDICATIONS: The patient is a 75-year-old female with hypertension and worsening episodes of palpitations with atrial fibrillation on flecainide. FINDINGS: 1. The patient was able to exercise for 5 minutes 24 seconds on a standard Piyush protocol suggesting good exercise capacity with an RAMBO of -5%, achieving 7.0 METS. 2. She had a mildly blunted heart rate response to exercise with a resting heart rate of 72 BPM increasing to a maximum of 108 BPM (76% of her predicted maximum). She had a normal blood pressure response. 3. She had no chest discomfort or other anginal symptoms. She had no palpitations. 4. Her resting ECG shows sinus rhythm with a left anterior fascicular block and mild lateral ST-segment abnormalities. With exercise, there are no significant ST-segment shifts or arrhythmias demonstrated. IMPRESSION: 1. Normal exercise treadmill stress test for ischemia although with mildly reduced sensitivity because of a blunted heart rate response to exercise. 2. Good exercise capacity without angina or palpitations. No arrhythmias were seen. Velvet Kim - BOBBY/lakeisha/cs doc#: [id number]/job#: [id number] dd: 07/04/2021 16:44:00 dt: 07/04/2021 18:16:00 DICTATING MD/COPIES TO: Yazan Pires MD; Lucero Loya MD COPIES MNE: CHELO;
== END ==
PROVIDERS: PCP Family Medicine; Referring Provider Internal Medicine; Visit Provider Internal Medicine
DX: R00.2 Palpitations (principal); I48.91 Unspecified atrial fibrillation
CPT/HCPCS: 36415; 80048; 83735; 84439; 84443; 93017

== ENCOUNTER → 2021-10-27 12:51 | Outpatient (CLI) | payer OTHER, SELFPAY ==
[2021-10-27 15:11] LABS: COVID-19 CEPHEID PCR (VTM/NP) Negative (Negative)
== END ==
PROVIDERS: PCP Family Medicine; Referring Provider Internal Medicine; Visit Provider Internal Medicine
DX: Z20.822 Contact with and (suspected) exposure to COVID-19 (principal)
CPT/HCPCS: C9803; U0003; U0005

== ENCOUNTER → 2021-10-27 13:05 | Outpatient (CLI) | payer OTHER, SELFPAY ==
--- NOTE | 2021-11-01 09:11 | PM.PFT.1 ---
Pulmonary Function Test Referral & Results Date Patient Seen: 10/27/21 Requesting provider: Emi Prince Results: The spirometry demonstrates an FVC of 2.39 L which is 81% of predicted. The FEV1 was measured at 1.80 L which is 81% of predicted. The FEV1/FVC ratio was 75 which is 101% of predicted. Following the administration of bronchodilator there was a 33% improvement in FEF 25-75% Lung volumes show an SVC of 2.39 L which is 82% of predicted. The diffusing capacity was measured at 14.25 which is 52% of predicted. No hemoglobin value was provided, so no correction for potential anemia could be made, if appropriate. The maximum voluntary ventilation was reduced Interpretation: This study demonstrates perhaps mild obstructive lung disease based on minimal reduction FEV1 and minimal improvement small airway flow after bronchodilator based on improvement in FEF 25-75% as above There may be a minimal reduction in lung volumes suggesting the possibility of very minimal restrictive lung disease There is a more dramatic reduction in diffusing capacity suggesting more significant disease at the capillary alveolar level Compared to PFTs performed in April 2012, current study is essentially unchanged with the exception diffusing capacity which has declined Clinical correlation suggested
== END ==
PROVIDERS: PCP Family Medicine; Referring Provider Family Medicine; Visit Provider Family Medicine
DX: R06.09 Other forms of dyspnea (principal); J98.8 Other specified respiratory disorders; Z87.891 Personal history of nicotine dependence; Z20.822 Contact with and (suspected) exposure to COVID-19
CPT/HCPCS: 94060; 94726; 94729; C9803; U0003; U0005

== ENCOUNTER 2022-01-02 12:15 | Emergency (ER) | payer OTHER, SELFPAY ==
[2022-01-02 12:15] VITALS: TEMP 36.7; BMI 32.3
[2022-01-02 13:00] VITALS: BP 137/67; PULSE 57; RESP 18; O2SAT 98
--- NOTE | 2022-01-02 13:25 | DI.RAD.S_ITS ---
PROCEDURE: XR CHEST 1V INDICATIONS: chest pain TECHNIQUE: One view of the chest was acquired. COMPARISON: [facility], CR, XR CHEST 1V, 03/02/2021, 11:00. FINDINGS: Surgical changes and devices: None. Lungs and pleura: Lungs are clear. No pleural effusions or pneumothorax. Mediastinum: Mediastinal contours appear normal. Heart size is normal. Bones and chest wall: No suspicious bony lesions. Overlying soft tissues appear unremarkable. IMPRESSION: No acute cardiopulmonary abnormality. Dictated by: Jovanny Albarado M.D. on 01/02/2022 at 13:52 Approved by: Jovanny Albarado M.D. on 01/02/2022 at 13:54
[2022-01-02 13:30] VITALS: BP 135/73; PULSE 58; RESP 18; O2SAT 96
[2022-01-02 13:47] LABS: Add Manual Diff / Slide Review NO; Basophils Absolute Auto 0 /uL (0-100); Basophils Percent Auto 0.9 % (0-2); Eosinophils Absolute Auto 0 /uL (0-450); Eosinophils Percent Auto 1.1 % (2-4); Hematocrit 37.2 % (36-46); Hemoglobin 12.2 g/dL (12.0-16.0); Lymphocytes Absolute Auto 1100 /uL (1100-4500); Lymphocytes Percent Auto 29.1 % (25-40); Mean Corpuscular HGB Conc 32.8 % (30-36); Mean Corpuscular Hemoglobin 29.9 PG (26-34); Mean Corpuscular Volume 91.4 fL (80-100); Monocytes Absolute Auto 400 /uL (0-900); Monocytes Percent Auto 9.8 % (3-14); Neutrophils Absolute Auto 2300 /uL (1500-7000); Neutrophils Percent Auto 59.1 % (50-75); Platelet Count 210 X10^3/uL (150-400); Red Blood Cell Count 4.07 X10^6/uL (4.0-5.2); Red Cell Distribution Width 14.5 % (11.6-14.8); White Blood Cell Count 3.9 X10^3/uL (4.5-11.0)
[2022-01-02 14:02] LABS: Alanine Aminotransferase 17 IU/L (<35); Albumin 3.8 g/dL (3.5-5.0); Albumin Globulin Ratio 1.4 (1.0-2.8); Alkaline Phosphatase 74 U/L (38-126); Aspartate Aminotransferase 25 IU/L (14-36); Bilirubin Total 0.3 mg/dL (0.2-1.3); Blood Urea Nitrogen 24 mg/dL (7-17); Calcium 9.7 mg/dL (8.4-10.2); Carbon Dioxide 27 mmol/L (22-32); Chloride 107 mmol/L (98-107); Creatine Kinase 47 U/L (30-135); Estimated Glomerular Filt Rate > 60 mL/min (>60); Globulin 2.7 g/dL (1.7-4.1); Glucose 96 mg/dL (80-110); HEMOLYSIS < 15 (0-50); Lipase 51 U/L (23-300); Potassium 3.9 mmol/L (3.4-5.1); Sodium 139 mmol/L (137-145); Total Protein 6.5 g/dL (6.3-8.2)
--- NOTE | 2022-01-02 14:10 | ED.CHESTPAIN ---
HPI - Chest Pain General Chief Complaint: Chest Pain Stated Complaint: CHEST PAIN Time Seen by Provider: 01/02/22 13:25 Source: patient Mode of arrival: Ambulatory History of Present Illness HPI narrative: Patient is a 76-year-old Female history of atrial fibrillation on flecainide and Pradaxa, hypertension presenting today with elevated blood pressure and chest discomfort. She says for number of months she has had increasing shortness of breath with exertion she said that she had a diffusion study and shows that she has some defects in her lungs. However the last 3 days she has had more chest discomfort and shortness of breath with exertion. Last night and today she noted that her blood pressure was elevated in 160s which is what brought her to the emergency department. It has been consistent. But definitely worse with exertion. Now at rest in the emergency department blood pressure has down and she is asymptomatic. She denies any chest pain at this time. She has not had any fever chills. She has noted a mild headache which has now also resolved. No blurry vision double vision numbness tingling or weakness. Related Data Home Medications Medication Instructions Recorded Confirmed amlodipine 5 mg tablet 5 mg PO DAILY 04/29/21 04/29/21 chlorthalidone 25 mg tablet 25 mg PO DAILY 04/29/21 04/29/21 dabigatran etexilate 150 mg 150 mg PO BID 04/29/21 04/29/21 capsule (Pradaxa) flecainide 50 mg tablet 50 mg PO Q12H 04/29/21 04/29/21 losartan 50 mg tablet 50 mg PO DAILY 04/29/21 04/29/21 metoprolol succinate 25 mg 25 mg PO DAILY 04/29/21 04/29/21 tablet,extended release 24 hr tolterodine 2 mg capsule,extended 2 mg PO DAILY 04/29/21 04/29/21 release 24 hr venlafaxine 150 mg 150 mg PO DAILY 04/29/21 04/29/21 capsule,extended release 24 hr (Effexor XR) Allergies Allergy/AdvReac Type Severity Reaction Status Date / Time azithromycin [AZITHROMYCIN] Allergy Unknown Verified 01/02/22 12:39 iodine [IODINE] Allergy Unknown Verified 01/02/22 12:39 Review of Systems Review of Systems Narrative: GENERAL: Denies chills, fatigue, malaise, fever, sweats, travel HEENT: Denies sinus pain, ear pain, sore throat, difficulty swallowing, neck pain RESPIRATORY: Denies dyspnea, cough, wheezing, hemoptysis, sputum. CARDIOVASCULAR: See HPI GASTROINTESTINAL: Denies nausea, vomiting, abdominal pain, diarrhea, constipation, melena. : Denies dysuria, frequency, incontinence, hematuria, urinary retention, flank pain. MUSCULOSKELETAL: Denies weakness, joint pain, or bony pain SKIN: No rash, no erythema, no pruritus NEUROLOGIC: Denies weakness, dizziness, headache, numbness, change in speech, confusion PSYCHIATRIC: No concerning psychosocial issues. 12 point review of systems is negative except for those stated above and HPI Patient History Social History Smoking Status: Former smoker Smoking Status: Former smoker alcohol intake frequency: 0-2 drinks per day Alcohol type: wine Substance Use Type: does not use Exam Initial Vital Signs Initial Vital Signs: Vital Signs Temperature 98.1 F 01/02/22 12:15 GENERAL: Appearing 68-year-old femaleand in no acute distress. HEENT: Head atraumatic,EOMI, pupils reactive, face symmetric, moist mucous membranes CARDIOVASCULAR: Regular rate and rhythm without murmurs, rubs or gallops. RESPIRATORY: Breath sounds equal bilaterally, no wheezes rales or rhonchi. ABDOMEN: Soft, nontender. Normoactive bowel sounds all 4 quadrants. No guarding or rebound.s EXTREMITIES: Normal range of motion, no clubbing or edema. Neurovascularly intact NEUROLOGICAL: Alert and oriented x4.Normal gait and speech. SKIN: Warm, dry, no laceration, no petechiae, no rashes or lesions. Course Orders Ordered: ED Orders 01/02/22 13:25 XR chest 1V Stat 01/02/22 13:30 BNP [NT-proBNP (BNP-Adult 18+)] Stat Complete Blood Count AUTO DIFF Stat Comprehensive Metabolic Panel Stat Lipase Stat Troponin & CK Cardiac Panel Stat 01/02/22 15:23 EKG-12 Lead Routine 01/02/22 15:43 Trop I [Troponin I] Stat Vital Signs Vital signs: Vital Signs - 8 hr 01/02/22 12:15 01/02/22 13:00 01/02/22 13:30 Temperature 98.1 F Pulse Rate 57 L 58 L Respiratory Rate 18 18 Blood Pressure 137/67 135/73 Pulse Oximetry 98 96 01/02/22 16:00 01/02/22 17:00 01/02/22 18:00 Temperature Pulse Rate 59 L 58 L 60 Respiratory Rate 18 18 18 Blood Pressure 149/73 H 154/70 H 173/74 H Pulse Oximetry 99 99 98 MDM - Chest Pain Lab Data Result diagrams: 01/02/22 13:30 01/02/22 13:30 Labs: Lab Results 01/02/22 01/02/22 01/02/22 Range/Units 13:30 13:30 13:30 WBC 3.9 L (4.5-11.0) X10^3/uL RBC 4.07 (4.0-5.2) X10^6/uL Hgb 12.2 (12.0-16.0) g/dL Hct 37.2 (36-46) % MCV 91.4 (80-100) fL MCH 29.9 (26-34) PG MCHC 32.8 (30-36) % RDW 14.5 (11.6-14.8) % Plt Count 210 (150-400) X10^3/uL Neut % (Auto) 59.1 (50-75) % Lymph % (Auto) 29.1 (25-40) % Pershing % (Auto) 9.8 (3-14) % Eos % (Auto) 1.1 L (2-4) % Baso % (Auto) 0.9 (0-2) % Neut # (Auto) 2300 (1755-5794) /uL Lymph # (Auto) 1100 (4666-7823) /uL Pershing # (Auto) 400 (0-900) /uL Eos # (Auto) 0 (0-450) /uL Baso # (Auto) 0 (0-100) /uL Sodium 139 (137-145) mmol/L Potassium 3.9 (3.4-5.1) mmol/L Chloride 107 (98-107) mmol/L Carbon Dioxide 27 (22-32) mmol/L BUN 24 H (7-17) mg/dL Creatinine 0.96 (0.52-1.04) mg/dL Estimated GFR > 60 (>60) mL/min BUN/Creatinine Ratio 25.0 H (6-22) Glucose 96 (80-110) mg/dL Calcium 9.7 (8.4-10.2) mg/dL Total Bilirubin 0.3 (0.2-1.3) mg/dL AST 25 (14-36) IU/L ALT 17 (<35) IU/L Alkaline Phosphatase 74 (38-126) U/L Total Creatine Kinase 47 (30-135) U/L CK-MB (CK-2) TNP CK-MB (CK-2) Rel Index TNP Troponin I < 0.012 (0.01-0.034) ng/mL NT-Pro-B Natriuret Pep 203 (<450) pg/mL Total Protein 6.5 (6.3-8.2) g/dL Albumin 3.8 (3.5-5.0) g/dL Globulin 2.7 (1.7-4.1) g/dL Albumin/Globulin Ratio 1.4 (1.0-2.8) Lipase 51 (23-300) U/L 01/02/22 Range/Units 15:43 WBC (4.5-11.0) X10^3/uL RBC (4.0-5.2) X10^6/uL Hgb (12.0-16.0) g/dL Hct (36-46) % MCV (80-100) fL MCH (26-34) PG MCHC (30-36) % RDW (11.6-14.8) % Plt Count (150-400) X10^3/uL Neut % (Auto) (50-75) % Lymph % (Auto) (25-40) % Pershing % (Auto) (3-14) % Eos % (Auto) (2-4) % Baso % (Auto) (0-2) % Neut # (Auto) (4615-9285) /uL Lymph # (Auto) (7432-3596) /uL Pershing # (Auto) (0-900) /uL Eos # (Auto) (0-450) /uL Baso # (Auto) (0-100) /uL Sodium (137-145) mmol/L Potassium (3.4-5.1) mmol/L Chloride (98-107) mmol/L Carbon Dioxide (22-32) mmol/L BUN (7-17) mg/dL Creatinine (0.52-1.04) mg/dL Estimated GFR (>60) mL/min BUN/Creatinine Ratio (6-22) Glucose (80-110) mg/dL Calcium (8.4-10.2) mg/dL Total Bilirubin (0.2-1.3) mg/dL AST (14-36) IU/L ALT (<35) IU/L Alkaline Phosphatase (38-126) U/L Total Creatine Kinase (30-135) U/L CK-MB (CK-2) CK-MB (CK-2) Rel Index Troponin I < 0.012 (0.01-0.034) ng/mL NT-Pro-B Natriuret Pep (<450) pg/mL Total Protein (6.3-8.2) g/dL Albumin (3.5-5.0) g/dL Globulin (1.7-4.1) g/dL Albumin/Globulin Ratio (1.0-2.8) Lipase (23-300) U/L Imaging Data Chest x-ray: Radiologist's Impression: Patient: Velvet Kim MR#: [id number] : 1945 Acct:[id number] Age/Sex: 76 / F Date of Service: 01/02/22 Loc: ED Accession Number: [id number] ?? Procedure: XR chest 1V Ordering Provider: Liya Ortega D.O. PROCEDURE:? XR CHEST 1V ? INDICATIONS:? chest pain ? TECHNIQUE:? One view of the chest was acquired.? ? COMPARISON:? [facility], , XR CHEST 1V, 03/02/2021, 11:00. ? FINDINGS:? ? Surgical changes and devices:? None.? ? Lungs and pleura:? Lungs are clear.? No pleural effusions or pneumothorax.? ? Mediastinum:? Mediastinal contours appear normal.? Heart size is normal.? ? Bones and chest wall:? No suspicious bony lesions.? Overlying soft tissues appear unremarkable.? ? IMPRESSION:? No acute cardiopulmonary abnormality. ? ? Dictated by: Jovanny Albarado M.D. on 01/02/2022 at 13:52 ? ? ECG Data Interpretation: Normal sinus rhythm rate 59 ID interval 210 QRS [address] changes or T-wave inversions similar to previous EKG A EKG 2. A sinus rhythm rate 56 no changes from previous MDM Narrative Medical decision making narrative: Patient has known lung a perfusion issue. She is on anticoagulation this is unlikely to be pulmonary embolism. 2- troponins. Blood pressure has come down without any intervention. She has had no recurrence of symptoms here in the emergency department 1715 Dr. Loya, patient's program advocate, set up outpatient stress test. At this time she feels comfortable sending patient home with close outpatient follow-up. Discharge Plan Departure Patient Disposition: Home Clinical Impression: Atypical chest pain Instructions: DI for Atypical Chest Pain Activity Restrictions/Additional Instructions: *You have been diagnosed with atypical chest pain *What to do: At this time blood work and emergency department workup is overall reassuring. I did call and talk with Dr. Loya who will schedule an outpatient stress test for you. The morning of the stress test she says do not take her metoprolol or flecainide. Her office should contact you with exact date and time *Continue to take medications as directed *Follow up with your primary care provider in 2-3 days or call [phone] *Return to ER if you should have persistent elevation of blood pressure greater than 190/100 is, increasing chest discomfort or shortness of breath or any new, worsening or concerning symptoms Prescriptions: No Action amlodipine 5 mg tablet 5 mg PO DAILY 0RF chlorthalidone 25 mg tablet 25 mg PO DAILY 0RF Pradaxa 150 mg capsule 150 mg PO BID 0RF losartan 50 mg tablet 50 mg PO DAILY 0RF tolterodine 2 mg capsule,extended release 24hr 2 mg PO DAILY 0RF metoprolol succinate 25 mg tablet extended release 24 hr 25 mg PO DAILY 0RF venlafaxine [Effexor XR] 150 mg capsule,extended release 24hr 150 mg PO DAILY 0RF flecainide 50 mg tablet 50 mg PO Q12H 0RF Referrals: Emi Prince, [Primary Care Provider] -
[2022-01-02 14:14] LABS: Troponin I < 0.012 ng/mL (0.01-0.034)
[2022-01-02 14:46] LABS: NT-proBNP (BNP-Adult 18+) 203 pg/mL (<450)
[2022-01-02 16:00] VITALS: BP 149/73; PULSE 59; RESP 18; O2SAT 99
[2022-01-02 16:16] LABS: Troponin I < 0.012 ng/mL (0.01-0.034)
[2022-01-02 17:00] VITALS: BP 154/70; PULSE 58; RESP 18; O2SAT 99
[2022-01-02 18:00] VITALS: BP 173/74; PULSE 60; RESP 18; O2SAT 98
== END 2022-01-02 18:09 | disposition home or self-care (01) ==
PROVIDERS: Emergency Provider Emergency Medicine; PCP Family Medicine
DX: R07.89 Other chest pain (principal); R06.02 Shortness of breath
CPT/HCPCS: 36415; 71045; 80053; 82550; 83690; 83880; 84484; 85025; 93005; 99283

== ENCOUNTER → 2022-02-28 14:43 | Outpatient (CLI) | payer OTHER, SELFPAY ==
--- NOTE | 2022-02-28 14:58 | DIET.CONS ---
Dietary Consultation Note Assessment: 76y F [address] visit for help losing weight to support pulmonary function and back pain. Pt approved for 6 visits by her Medicare Advantage plan. Pt has hx of successful weight loss, has tried many diets, finds calorie counting and the Gagan Diet (low carb, unrefined foods) helpful. Pt has been as high as 215#, dropped just below 200# before covid, then rebounded up to 208#. Pt finds nighttime snacking is her weakness, eats mostly vegetarian diet, lots of fruits and veggies. Pt is experiencing some stress x3y as her with personality and behavior changes. Ht: 66 Wt: 202# BMI: 32.5 Goal weight: 180# Usual Day: wakes 7-8am, waits hour before breakfast B: light and fit yogurt c fruit and almonds, couple cups coffee L: tuna salad on lettuce or bread, salad c veggies but not as good (problem meal) c water or ice tea if eating out at lunch: [employer], [employer] one glass wine per day D: protein c veggie fine until 8pm, pt knits then gets snacky: likes chips c salsa, potato chips, cheetoes, salty crunchy, has tooth and colon issues so limited diet pts free foods are chicken, fish, potatoes c weight watchers Pt currently enrolled in pulmonary rehab, exercising 3x/w. Nutrition Diagnosis: obesity r/t excessive oral intake aeb pt BMI 32.5, pt reports evening snacking. Interventions: 1. To address obesity, set pts kcal level to 1300 per day. Pt downloaded [employer] cyril, starting to track POs. 2. To address obesity, provided pt resource for 1300kcal meal plans. 3. Educated pt on hunger scale. Pt often overeating. Pt will aim to eat at a 3 and stop at an 8. Pt will pack away dinner plates and eat off salad plates. 4. To address nighttime snacking, allotted pt 150kcals for evening snack. Pt likes salty and crunchy, recc pt switch from chips to Kasey seaweed snacks, popcorn. EER: 1800kcals to maintain, 1300kcals to lose weight Monitoring/Evaluations: f/u in 3w for weight in and continuation of education/monitoring. Electronically Signed by: Karen Vera 02/28/22 14:58 [facility] [address] [address]
[2022-02-28 15:12] VITALS: BMI 32.5
== END ==
PROVIDERS: PCP Family Medicine; Referring Provider Family Medicine; Visit Provider Family Medicine
DX: E66.9 Obesity, unspecified (principal); M54.9 Dorsalgia, unspecified; Z71.3 Dietary counseling and surveillance; Z68.32 Body mass index [BMI] 32.0-32.9, adult
CPT/HCPCS: 97802

== ENCOUNTER → 2022-03-07 13:35 | Outpatient (CLI) | payer OTHER, SELFPAY ==
--- NOTE | 2022-03-07 | DI.NM.S_ITS ---
PROCEDURE: NM GARRY PERF SPECT R&S PHARM Rest and pharmacological stress myocardial perfusion SPECT with gated imaging and ejection fraction RADIOPHARMACEUTICAL: 25.9 mCi Tc-99m tetrafosmin IV at rest and 27/1 mCi Tc-99m tetrafosmin IV at peak effect of pharmacological stress. [id number]-chvigmyy was performed. INDICATIONS: Dyspnea, unspecified TECHNIQUE: Radiopharmaceutical was injected at peak stress test, and also at rest. SPECT images were obtained. SPECT myocardial perfusion images were displayed in short axis, horizontal long axis, and vertical long axis views. Gated images were reviewed using [employer] software. COMPARISON: None. CARDIAC STRESS: A pharmacologic stress test was performed under the supervision of an attending staff, using an infusion of lexiscan 0.4mg IV X1. Hemodynamic data: There is normal blood pressure and heart rate response to pharmacologic stress. Symptoms: The patient denied anginal chest pain. Aminophylline: none EKG: No diagnostic changes of ischemia; no ectopy. FINDINGS: Raw data: There is good myocardial uptake of radiotracer. No significant motion artifacts. Left ventricle function: Gated images demonstrate normal left ventricular wall thickening. No segmental wall motion abnormalities. No transient ischemic dilation; TID is 0.79 (normal less than 1.3). Left ventricle resting end diastolic volume is 79 mL. Left ventricle stress ejection fraction is 82%; normal range is above 45%. Myocardial perfusion: There is normal distribution of activity in the right and left ventricular myocardium. No fixed or reversible perfusion defects. IMPRESSION: Low risk, normal pharmaceutical nuclear stress test 1) No perfusion evidence of ischemia or infarction. 2) Normal left ventricular size, wall motion, and systolic function (EF post stress 82%). 3) No diagnostic ST changes during the stress test. 4) No angina during the study. 5) Reduced exercise capacity (4.6 METs). Since target heart rate not reached, study switched to lexiscan. 6) No prior nuclear stress test available for comparison. Dictated by: Dylan Lerma MD on 03/08/2022 at 16:49 Approved by: Dylan Lerma MD on 03/08/2022 at 16:52
[2022-03-07 15:01] LABS: COVID19 -Nasal RAPID Negative (Negative)
== END ==
PROVIDERS: PCP Family Medicine; Referring Provider Internal Medicine; Visit Provider Internal Medicine
DX: R06.00 Dyspnea, unspecified (principal); Z20.822 Contact with and (suspected) exposure to COVID-19
CPT/HCPCS: 78452; 87635; 93017; A9502; J2785

== ENCOUNTER → 2022-03-19 08:55 | Outpatient (CLI) | payer OTHER, SELFPAY ==
[2022-03-19 13:17] LABS: COVID19 -Nasal RAPID Negative (Negative)
== END ==
PROVIDERS: PCP Family Medicine; Visit Provider Surgery
DX: Z01.812 Encounter for preprocedural laboratory examination (principal); Z20.822 Contact with and (suspected) exposure to COVID-19
CPT/HCPCS: 87635; C9803

== ENCOUNTER 2022-03-20 10:54 | Day surgery (SDC) | payer OTHER, SELFPAY ==
[2022-03-20] MEDS: LACTATED RINGERS 1,000 ML 200 ML IV (11:08)
[2022-03-20 11:09] VITALS: BP 135/77; PULSE 63; RESP 18; TEMP 36.7; O2SAT 97
--- NOTE | 2022-03-20 11:16 | PM.HP.1 ---
History of Present Illness History of Present Illness Date Patient Seen: 03/20/22 Chief complaint: SCREENING COLONOSCOPY Narrative: The patient presents for colorectal screening. She has a personal history of colonic polyps. Last colonoscopy was approximately 6 years ago. No personal or family history of colon cancer. On further history denies any recent gastrointestinal symptoms. No nausea, vomiting, abdominal pain, loss of appetite, unexplained weight loss, change in bowel habits, diarrhea, constipation, melena, hematochezia, or bright red blood per rectum. Patient History Medical History Atrial fibrillation (~2018) Carpal tunnel syndrome (~2013) Chicken pox (~1949) Chronic back pain (~2019) COPD (chronic obstructive pulmonary disease) Depression (~1989) Measles (~1948) Medicare annual wellness visit, subsequent Mumps (~1949) Osteoarthritis (~1997) Peripheral neuropathy Shoulder pain (~2019) Urinary incontinence (~2019) Surgical History Anesthesia History of arthroplasty History of bilateral knee replacement (~1998) History of hysterectomy (~1991) Family & Social History Family History Father Cancer Mother History of heart disease Brother History of heart disease Brother Cancer Diabetes mellitus History of heart disease Hypertension Grandfather History of heart disease Grandfather Cancer Grandmother Cancer Tobacco & Substance use: Smoking Status Former smoker alcohol intake frequency 0-2 drinks per day Substance Use Type does not use Meds Home Medications and Allergies Home Medications Medication Instructions Recorded Confirmed Type amlodipine 5 mg tablet 5 mg PO DAILY 04/29/21 02/23/22 History chlorthalidone 25 mg tablet 25 mg PO DAILY 04/29/21 02/23/22 History dabigatran etexilate 150 mg 150 mg PO BID 04/29/21 02/23/22 History capsule (Pradaxa) flecainide 50 mg tablet 50 mg PO Q12H 04/29/21 02/23/22 History losartan 50 mg tablet 50 mg PO DAILY 04/29/21 02/23/22 History metoprolol succinate 25 mg 25 mg PO DAILY 04/29/21 02/23/22 History tablet,extended release 24 hr venlafaxine 150 mg 150 mg PO DAILY 04/29/21 02/23/22 History capsule,extended release 24 hr (Effexor XR) lorazepam 0.5 mg tablet 0.5 mg PO BEDTIME PRN 02/23/22 02/23/22 History tolterodine 4 mg capsule,extended 4 mg PO DAILY #90 caps 03/12/22 03/12/22 Rx release 24 hr Allergies Allergy/AdvReac Type Severity Reaction Status Date / Time azithromycin [AZITHROMYCIN] Allergy Unknown Verified 03/20/22 11:20 iodine [IODINE] Allergy Unknown Verified 03/20/22 11:20 Exam Narrative Exam Narrative: General adult woman alert oriented no acute distress Abdomen soft nontender nondistended Assessment & Plan Assessment & Plan narrative: The patient requires colorectal screening and colonoscopy is recommended. Technical details were discussed. Risks, benefits, alternatives explained. Risks including but not limited to myocardial infarction, aspiration, bleeding, pain, missed lesion, incomplete examination, need for further radiographic studies, colonic perforation, and need for major abdominal surgery were discussed. All questions were answered to their satisfaction, and they are in agreement with this plan. Time Spent With Patient Critical Care time: I spent a total of [] minutes of critical care time on this patient's care today; this time is exclusive of procedural time.
[2022-03-20] MEDS: fentaNYL 250 MCG/5 ML INJ 100 MCG IV (11:45)
[2022-03-20] MEDS: MIDAZOLAM 5 MG/5 ML VIAL IV (11:45)
--- NOTE | 2022-03-20 11:57 | PM.OP.COLON ---
Operative Date/Time/Diagnoses Date of procedure: 03/20/22 Time of procedure: 11:57 Pre-op diagnosis: Personal history of colonic polyps Post-op diagnosis: same Procedure & Clinicians Study performed: Colonoscopy Same procedure as scheduled: Yes Indications: Personal history of colonic polyps Surgeon: Mickey Daniels Procedure Notes Procedure in detail: Medications: Conscious sedation using 5mg IV midazolam and 100mcg IV of fentanyl The history and physical was performed/updated and the patient is ASA class is 2. The procedure was discussed in detail with the patient. Potential risks complications including infection, bleeding, missed diagnosis, perforation, need for surgery, and were explained. Their questions were answered and informed consent was obtained. Patient was brought to the procedure room and placed standard monitoring equipment. The patient's vital signs were monitored continuously throughout the entire procedure. Prior to starting time-out was performed. The patient was placed in the left lateral recumbent position. Procedural sedation was administered. Examination began with a thorough inspection of the perianal area there was no evidence of fissures, fistulae, external hemorrhoids or cutaneous malignancy. The colonoscopy scope was then placed into the anal canal and was advanced to the cecum, which was identified by the ileocecal valve, the appendiceal orifice and the confluence of the taenia. The scope was then slowly withdrawn examining colon thoroughly in all directions, irrigating it of any residual stool. FINDINGS 1. No masses or polyps 2. Sigmoid diverticulosis 3. Internal hemorrhoids The patient tolerated the procedure well. They will be discharged once criteria are met. The prep was of good/excellent quality. The withdrawl time was 6 minutes. The sedation time was 20minutes. Specimen(s): none sent Complications: none Impression: Normal colonoscopy Post-procedure Recommendations: Colonoscopy in 5 years and High fiber diet Disposition: same day surgery
[2022-03-20 11:59] VITALS: BP 126/53; PULSE 57; RESP 10; TEMP 36.6; O2SAT 100
[2022-03-20 12:04] VITALS: BP 129/72; PULSE 84; RESP 16; O2SAT 99
[2022-03-20 12:09] VITALS: BP 132/63; PULSE 75; RESP 12; O2SAT 100
[2022-03-20 12:19] VITALS: BP 135/74; PULSE 80; RESP 16; O2SAT 100
--- NOTE | 2022-03-20 12:20 | SUR.PHASEI ---
1215: Pt A&Ox4, denies any distress, VSS, and ready to transfer to phase 2, handoff to MARIO Higginbotham.
== END 2022-03-20 12:30 | disposition home or self-care (01) ==
PROVIDERS: PCP Family Medicine; Referring Provider Surgery; Visit Provider Surgery
PROC: 0DJD8ZZ Inspection of Lower Intestinal Tract, Via Natural or Artificial Opening Endoscopic (ICD-10-PCS; CPT 45378; principal; 2022-03-20 12:15)
DX: Z12.11 Encounter for screening for malignant neoplasm of colon (principal); Z86.010 Personal history of colon polyps; K57.30 Diverticulosis of large intestine without perforation or abscess without bleeding; K64.8 Other hemorrhoids
CPT/HCPCS: G0105; 99152; J2250; J3010

== ENCOUNTER → 2022-03-21 11:18 | Outpatient (CLI) | payer OTHER, SELFPAY ==
--- NOTE | 2022-03-21 11:34 | DIET.OUTPTC ---
Dietary Outpatient Consultation Note Consultation Date: 03/21/[address] 76[address] f/u for help with obesity. Weight: 196# (6# loss in 3w) Pt has been able to maintain 1300kcal intake since last visit. Finds LoseIt cyril helpful and enlightening. Pt has been enjoying lupini beans as snack along with popcorn in evening. Pt enjoying refried beans c salsa for breakfast daily. Pt had colonoscopy yesterday showing diverticulosis and internal hemorrhoids. Pts new high fiber diet certainly will benefit colon tone. Pt achieving 2#/w weight loss which is as fast as we want her to lose. Pt finds accountability of meeting c RD helpful to stay on track. Pt's only trouble is she misses cheese and being more generous with olive oil intake. Discussed short term caloric restriction to get to goal weight of 180# at which point kcal intake can go up by a few hundred calories allowing her to resume higher cheese and oil consumption. Plan for f/u in 4w to continue weight monitoring and nutrition education. Electronically Signed by: Karen Vera 03/21/22 11:34 Clinical Dietitian [address] [address]
== END ==
PROVIDERS: PCP Family Medicine; Referring Provider Family Medicine; Visit Provider Family Medicine
DX: E66.9 Obesity, unspecified (principal); K57.90 Diverticulosis of intestine, part unspecified, without perforation or abscess without bleeding; K64.8 Other hemorrhoids; Z71.3 Dietary counseling and surveillance
CPT/HCPCS: 97803

== ENCOUNTER 2022-04-16 10:15 | Outpatient (RCR) | payer OTHER, SELFPAY ==
[2022-05-14 11:45] LABS: Appearance Urine UA CLOUDY; Bilirubin Urine UA NEGATIVE (NEGATIVE); Color Urine UA YELLOW; Glucose Urine UA NEGATIVE (Negative); Ketones Urine UA NEGATIVE (NEGATIVE); Leukocyte Esterase Urine UA NEGATIVE (NEGATIVE); Nitrite Urine UA NEGATIVE (Negative); Occult Blood Urine UA NEGATIVE (Negative); Protein Urine UA NEGATIVE (Negative); Urobilinogen Urine UA 0.2 E.U./dL (0.2)
[2022-05-14 12:16] LABS: pH Urine UA 7.5 (4.5-8.0)
[2022-05-14 12:20] LABS: Amorphous Sediment Urine 3+; Bacteria Urine None Seen; Culture Indicated Urine Cult Not Indicated; RBC Urine None Seen (0-5/HPF); Renal Epithelial Cells Urine 1-5/HPF (0-1/HPF); Squamous Epithelial Cell Urine 10-30 /HPF (0-5/HPF); Transitional Epi Cells Urine 1-5/HPF (0-5/HPF); WBC Urine None Seen (0-5/HPF)
== END 2022-04-16 12:15 ==
LOC: PUL 10:15
PROVIDERS: Urology; PCP Family Medicine; Referring Provider Family Medicine; Visit Provider Family Medicine
DX: R06.02 Shortness of breath (principal)
CPT/HCPCS: 81001; G0237; G0238

== ENCOUNTER → 2022-04-18 11:55 | Outpatient (CLI) | payer OTHER, SELFPAY ==
--- NOTE | 2022-04-18 12:02 | DIET.OUTPTC ---
Dietary Outpatient Consultation Note Consultation Date: 04/18/2022 76y F attending 3/6 visits for obesity. Pt reports 2# weight loss in 4w. She is frustrated because she did not lose more weight, however, pt is experimenting with a vegan diet so was not keeping as close count on calories for the past 3w. Pt would like to transition to a vegan diet to support her overall health and longevity. Pt was told by her neurologist her B12 levels are high so to stop taking secondary to neuropathy. Pt hasn't had levels checked since 2019. Recc annual B12 levels from PCP as pt high risk for B12 deficiency with risk factors of age, vegan diet, reccs to avoid B12 supps from neurologist. Spent bulk of visit discussing transition into veganism. Provided education and recipes/product suggestions and plan to slowly transition over 6-12 months. Discussed nutrients of concern with veganism and how to support intake. Provided pt copy reccs of exercise videos to follow now that she has graduated from cardiac rehab and is looking to continue fitness level. 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 f/u in 6w to assess weight status and update on vegan diet transition. Electronically Signed by: Karen Vera 04/18/22 12:02 Clinical Dietitian [address] [address]
== END ==
PROVIDERS: PCP Family Medicine; Referring Provider Family Medicine; Visit Provider Family Medicine
DX: E66.9 Obesity, unspecified (principal); Z71.3 Dietary counseling and surveillance
CPT/HCPCS: 97803

== ENCOUNTER → 2022-05-24 07:50 | Outpatient (CLI) | payer OTHER, SELFPAY ==
--- NOTE | 2022-05-24 | DI.ECHO.S_ITS ---
[facility] +---------+ : : [address] : [address] : : : : [id number] : : : : Phone: [phone]+ Echocardiogram Report + + :Name: JAIMIE WEBER Study Date: 05/24/2022 Height: 66 in : :[facility] ReadingLocation: Weight: 190 lb : : Gender: Female BSA: 2.0 m2 : :: 1945 Age: 76 yrs BP: 154/98 mmHg: :Reason For Study: ATRIAL FIBRILLATION : :Ordering Physician: MOISES, : :ADA Performed By: Madelyn Asif : :Referring: ADA DE LEON : + + Interpretation Summary Normal sinus rhythm. Normal :LV size; mild concentric LVH; normal wall motion and LV systolic function. EF is 60-65%. Stage I diastolic dysfunction. Mild LA enlargement; otherwise normal chamber sizes. No significant valvular abnormalities. Compared to prior study 05/09/2021 LA Volume index shrank from 45 to 37 ml/m2. Otherwise no significant changes have occurred. Procedure: A two-dimensional transthoracic echocardiogram with color flow and Doppler was performed. The study quality was technically adequate. Comparison is made with the echocardiogram of 05/09/2021. The patient was in sinus rhythm with heart rates between 59-80 bpm during the exam. Left Ventricle: The left ventricle is normal in size. There is mild concentric left ventricular hypertrophy. The ejection fraction is estimated to be 60-65%. Right Ventricle: The right ventricle grossly appears normal in size with probable normal systolic function. Atria: The left atrium is mildly dilated. Right atrial size is normal. There is no Doppler evidence for an interatrial shunt. Mitral Valve: The mitral valve is normal in structure and function. There is mild mitral regurgitation. Aortic Valve: The aortic valve is trileaflet. There is mild aortic valve sclerosis. There is no aortic valve stenosis. There is trace aortic regurgitation. Tricuspid Valve: The tricuspid valve is normal in structure and function. There is mild tricuspid regurgitation. Pulmonic Valve: The pulmonic valve is not well visualized. There is no pulmonic valvular regurgitation. Great Vessels: The aortic root is normal size. The dimensions of the ascending aorta are normal. The IVC is of normal diameter and collapses greater than 50% with a sniff. This suggests a low right atrial pressure of 3 mm Hg. Pericardium/ Pleura There is no pericardial effusion. There is no pleural effusion. MMode/2D Measurements & Calculations LVIDd: 3.8 cm LVOT diam: 2.1 cm LVIDs: 2.5 cm Ao root diam: 3.8 cm FS: 33.6 % asc Aorta Diam: 3.5 cm IVSd: 1.2 cm Ao Arch Diam (Prox Trans): 2.7 cm LVPWd: 1.2 cm LV lazo. diameter/BSA (cm/m^2): 1.9 LV sys. diameter/BSA (cm/m^2): 1.3 LA A2 area: 23.1 cm2 RA long axis: 4.0 cm LA A4 area: 20.3 cm2 RA area: 12.8 cm2 LA length (vol): 5.5 cm RA vol: 34.6 ml LA vol: 73.0 ml RA : 17.7 ml/m2 LA vol index: 37.3 ml/m2 IVC diam: 1.1 cm TAPSE: 1.7 cm Doppler Measurements & Calculations Ao V2 max: 183.0 cm/sec LVOT Max Kash: 104.5 cm/sec Ao V2 mean: 108.6 cm/sec LV V1 max P.4 mmHg Ao max P.4 mmHg LV V1 VTI: 24.2 cm Ao mean P.8 mmHg BIMAL(I,D): 2.5 cm2 Ao V2 VTI: 33.9 cm BIMAL(V,D): 2.0 cm2 sev ratio: 0.71 BIMAL indexed to BSA (cm^2/m^2): 1.3 MV E max kash: 77.2 cm/sec TR max kash: 228.5 cm/sec MV A max kash: 121.6 cm/sec TR max P.9 mmHg MV E/A: 0.64 PA V2 max: 103.8 cm/sec Med Peak E' Kash: 4.7 cm/sec PA V2 mean: 62.7 cm/sec E/E' med: 16.5 PA mean P.9 mmHg Lat Peak E' Kash: 5.8 cm/sec PA pr(Accel): 41.3 mmHg E/E' lat: 13.3 E/e' average: 14.9 MV dec time: 0.32 sec SV(LVOT): 83.6 ml Electronically signed by: Ada De Leon M.D. on Reading Physician:05/27/2022 01:23 PM
== END ==
PROVIDERS: PCP Family Medicine; Referring Provider Internal Medicine; Visit Provider Internal Medicine
DX: N39.3 Stress incontinence (female) (male) (principal); I48.91 Unspecified atrial fibrillation; I08.3 Combined rheumatic disorders of mitral, aortic and tricuspid valves
CPT/HCPCS: 87086; 93306

== ENCOUNTER → 2022-05-28 10:19 | Outpatient (CLI) | payer OTHER, SELFPAY ==
--- NOTE | 2022-05-28 10:26 | DIET.OUTPTC ---
Dietary Outpatient Consultation Note Consultation Date: 05/28/2022 76y F attending 3 of 6 nutrition visit for obesity. Pt continues to experiment with vegan eating, is finding more success with weight loss since last visit. 191# (-5# in 6w) Usual Day: B: whole grain toast c cheese (sargento cheddar) or sausage adriana and cheese on biscuit or equatorial guinean muffin c coffee L: lupini fernandez hummus c veggies D: lentil or other soups, stir fries Sn: skinnypop popcorn Pt states she will find herself with a bowl of potato chips sometimes even though she is not hungry, she just wants them. Pt also concerned with kcal level of nuts/seeds. Interventions: 1. Educated pt on automatic thoughts and mining of feel good chemicals from food to boost mood or mask unwanted feelings. Discussed ways to challenge automatic thoughts and find alternate ways to manage these situations without using food as a tool. Pt will practice challenging automatic thoughts this evening and will work on diverting attention to non-food coping techniques. 2. Educated pt on portion control of nuts/seeds. Pt will use sliced almonds rather than whole and will purchase PB powder to use in curries and sauces for lower kcal. F/U scheduled for 6w. Electronically Signed by: Karen Vera 05/28/22 10:26 Clinical Dietitian [address] [id number]
== END ==
PROVIDERS: PCP Family Medicine; Referring Provider Family Medicine; Visit Provider Family Medicine
DX: E66.9 Obesity, unspecified (principal); Z71.3 Dietary counseling and surveillance
CPT/HCPCS: 97803

== ENCOUNTER → 2022-07-16 12:16 | Outpatient (CLI) | payer OTHER, SELFPAY ==
--- NOTE | 2022-07-16 12:34 | DI.RAD.S_ITS ---
PROCEDURE: XR CHEST 2V INDICATIONS: worsening cough 5 days, slight rhonchi bases, hx COPD TECHNIQUE: 2 views of the chest were acquired. COMPARISON: [facility], CR, XR CHEST 1V, 01/02/2022, 13:25. [facility], CR, XR CHEST 1V, 03/02/2021, 11:00. FINDINGS: Surgical changes and devices: None. Lungs and pleura: Lungs are clear. No pleural effusions or pneumothorax. Mediastinum: Mediastinal contours are normal. Heart size is normal. Bones and chest wall: No suspicious bony abnormalities. Soft tissues appear unremarkable. IMPRESSION: No acute cardiopulmonary findings. Dictated by: Cher Yarbrough M.D. on 07/16/2022 at 13:03 Approved by: Cher Yarbrough M.D. on 07/16/2022 at 13:03
[2022-07-16 13:37] LABS: Influenza A - CEPHEID Flu A NEGATIVE (NEGATIVE); Influenza B - CEPHEID Flu B NEGATIVE (NEGATIVE); Respiratory Syncytial Virus Negative (Negative)
[2022-07-16 14:30] LABS: COVID-19 CEPHEID 4-PLEX PCR Negative (Negative)
== END ==
PROVIDERS: PCP Family Medicine; Referring Provider Student in an Organized Health Care Education/Training Program; Visit Provider Student in an Organized Health Care Education/Training Program
DX: R05.9 Cough, unspecified (principal); R53.83 Other fatigue
CPT/HCPCS: 0241U; 71046

== ENCOUNTER → 2022-08-06 11:08 | Outpatient (CLI) | payer OTHER, SELFPAY ==
--- NOTE | 2022-08-06 11:09 | DIET.OUTPTC ---
Dietary Outpatient Consultation Note Consultation Date: 08/06/20[address] 76[address] visit for 5th of 6 Medicare Advantage approved appointments to address obesity and plant based eating. Pt currently weighing in at 190# (-9% in 6mo since starting nutrition visits) Pt was sick over the past month so wasn't tracking PO intake and consuming more animal proteins than she would like. Pt is restarting her tracking today as she finds it helpful to support her weight loss journey. Pt with barrier to healthy eating (erna greens) as pt's spouse had SBO due to scar surgery from previous procedure and has poor dental quality so difficulty chewing. Pt avoiding putting greens in meals as spouse will not eat them. Spouse will drink smoothies with greens. Discussed batch cooking soups and pureeing spouse's half to allow greens in diet with low risk for SBO and avoiding having to cook fruit two dinners daily. Pt feels this is excellent choice as spouse enjoys pureed soups. Pt would like to request additional nutrition visits to continue her weight loss journey as BMI remains >30. Pt curious if she has CKD3 as she has had reduced eGFR in past. Encouraged pt to have visit with PCP on topic. F/u in 6w to continue monitoring pt. Electronically Signed by: Karen Vera 08/06/22 11:09 Clinical Dietitian [address] [id number]
== END ==
PROVIDERS: PCP Family Medicine; Referring Provider Family Medicine; Visit Provider Family Medicine
DX: E66.9 Obesity, unspecified (principal); Z71.3 Dietary counseling and surveillance
CPT/HCPCS: 97803

== ENCOUNTER → 2022-08-28 15:09 | Outpatient (CLI) | payer OTHER, SELFPAY ==
[2022-08-28 17:27] LABS: Appearance Urine UA CLOUDY; Bilirubin Urine UA NEGATIVE (NEGATIVE); Color Urine UA YELLOW; Glucose Urine UA NEGATIVE (Negative); Ketones Urine UA NEGATIVE (NEGATIVE); Leukocyte Esterase Urine UA 2+ (NEGATIVE); Nitrite Urine UA POSITIVE (Negative); Occult Blood Urine UA 2+ (Negative); Protein Urine UA NEGATIVE (Negative); Urobilinogen Urine UA 0.2 E.U./dL (0.2)
[2022-08-28 17:33] LABS: Amorphous Sediment Urine 1+; Bacteria Urine Many (>30); Culture Indicated Urine Specimen Cultured; RBC Urine 1-5/HPF (0-5/HPF); Squamous Epithelial Cell Urine 1-5 /HPF (0-5/HPF); Triple Phosphate Crystal Urine Few; WBC Urine 10-30/HPF (0-5/HPF)
== END ==
PROVIDERS: PCP Family Medicine; Referring Provider Family Medicine; Visit Provider Family Medicine
DX: R31.9 Hematuria, unspecified (principal)
CPT/HCPCS: 81001; 87077; 87086; 87186

== ENCOUNTER 2022-09-04 13:06 | Emergency (ER) | payer OTHER, SELFPAY ==
[2022-09-04] VITALS (30 sets, daily range): BP systolic 126–172; BP diastolic 56–93; PULSE 59–89; RESP 14–23; TEMP 36.4; O2SAT 93–100; BMI 29.8
--- NOTE | 2022-09-04 13:12 | DI.RAD.S_ITS ---
PROCEDURE: XR CHEST 1V INDICATIONS: chest pain TECHNIQUE: One view of the chest was acquired. COMPARISON: [facility], CR, XR CHEST 1V, 01/02/2022, 13:25. FINDINGS: Surgical changes and devices: None. Lungs and pleura: Lungs are clear. No pleural effusions or pneumothorax. Mediastinum: Mediastinal contours appear normal. Heart size is normal. Bones and chest wall: No suspicious bony lesions. Overlying soft tissues appear unremarkable. IMPRESSION: No acute cardiopulmonary disease process. Dictated by: Alejandrina Tomlin MD, PhD on 09/04/2022 at 14:25 Approved by: Alejandrina Tomlin MD, PhD on 09/04/2022 at 14:25
--- NOTE | 2022-09-04 13:52 | DI.CT.S_ITS ---
PROCEDURE: CT HEAD/BRAIN WO CON INDICATIONS: eval subacute cva TECHNIQUE: Noncontrast 4.5 mm thick angled axial sections acquired from the foramen magnum to the vertex, with coronal and sagittal reformats. For radiation dose reduction, the following was used: automated exposure control, adjustment of mA and/or kV according to patient size. COMPARISON: None. FINDINGS: Image quality: Excellent. CSF spaces: Basal cisterns are patent. No extra-axial fluid collections. The ventricles are symmetric in size and shape. Brain: No intracranial bleeds. There is a 1.1 x 2.2 x 1.6 centimeter partially calcified right posterior fossa extra-axial mass adjacent to the anterior margin of the right cerebellar hemisphere. There is cerebral volume loss for age, with resultant ventricular and sulcal prominence. There are periventricular and deep white matter chronic small vessel ischemic changes. There is intracranial internal carotid artery atherosclerosis. Skull and face: Calvarium and visualized facial bones appear intact, without suspicious lesions. Sinuses: Visualized sinuses and mastoids are clear. IMPRESSION: No acute intracranial disease process. 1.1 x 2.2 x 1.6 centimeter right posterior fossa extra-axial mass which may represent a meningioma. Recommend non emergent MRI of the brain with and without contrast for definitive characterization. Dictated by: Alejandrina Tomlin MD, PhD on 09/04/2022 at 14:26 Approved by: Alejandrina Tomlin MD, PhD on 09/04/2022 at 14:29
--- NOTE | 2022-09-04 13:52 | DI.MRI.S_ITS ---
PROCEDURE: MR HEAD/BRAIN WO/W CON INDICATIONS: eval subacute cva. Follow up ct TECHNIQUE: Noncontrast axial T1 spin echo, axial T2 fast spin echo, sagittal and axial FLAIR, coronal T2 fast spin echo, axial gradient echo, axial diffusion and ADC through the brain. After the administration of contrast, axial and coronal and sagittal 3D VIBE or T1 spin echo with fat saturation through the brain. COMPARISON: [facility], CT, CT HEAD/BRAIN WO CON, 09/04/2022, 14:09. FINDINGS: Image quality: Excellent. CSF Spaces: Basal cisterns are patent. No extra-axial fluid collections. Ventricles are normal in size and shape. Brain: No intracranial masses or hemorrhage. Tello/white matter interface is normal. Brainstem appears normal. Diffusion-weighted sequence is unremarkable without evidence of acute infarct. Normal intravascular flow voids are present. Mild atrophy and multifocal white matter chronic ischemic change. No acute infarct. Extra-axial homogeneously enhancing meningioma the right cerebellopontine angle measures 1.4 x 1.9 x 1.7 cm. Mild mass effect on the right cerebellar hemisphere without edema. Skull and face: Calvarial marrow is normal in signal. Orbits appear normal. Sinuses: Sinuses and mastoids appear clear. IMPRESSION: 1. Atrophy and chronic ischemic change without acute infarct or hemorrhage. 2. Incidental right cerebellopontine angle meningioma Approved by: Dada Hutchinson M.D. on 09/04/2022 at 14:29
--- NOTE | 2022-09-04 14:20 | ED_ITS ---
HPI - Dizziness General Chief Complaint: Dizziness Stated Complaint: afib,trouble walking Time Seen by Provider: 09/04/22 13:38 Source: patient Mode of arrival: Wheelchair History of Present Illness HPI Narrative: 76-year-old female presenting with 3-4 days of worsening ataxia. Patient noticed symptoms 3-4 days prior to presentation with difficulty with ambulation, subtle change in balance, difficulty managing some simple tasks such as tying her shoes and patient having several near fall events. Patient reports similar transient issues with memory and balance over the last 1-2 months, she is concerned that she has had TIAs waiting up to today. Patient does have a history of atrial fibrillation, is on Pradaxa for anticoagulation, reports not missing any doses recently. Patient denies focal weakness or numbness, no abdominal pain, patient has had some associated nausea related to lightheadedness/dizziness. No headache. Related Data Home Medications Medication Instructions Recorded Confirmed chlorthalidone 25 mg tablet 25 mg PO DAILY 04/29/21 07/16/22 dabigatran etexilate 150 mg 150 mg PO BID 04/29/21 07/16/22 capsule (Pradaxa) flecainide 50 mg tablet 50 mg PO Q12H 04/29/21 07/16/22 diltiazem HCl 360 mg capsule,24 360 mg PO DAILY 05/08/22 07/16/22 hr,extended release losartan 50 mg tablet 50 mg PO BID 05/08/22 07/16/22 Previous Rx's Medication Instructions Recorded fluticasone 250 mcg-salmeterol 50 1 inh inhalation BID #60 ea 03/30/22 mcg/dose blistr powdr for inhalation (Advair Diskus) venlafaxine 150 mg 150 mg PO DAILY #90 caps 04/10/22 capsule,extended release 24 hr (Effexor XR) solifenacin 10 mg tablet 10 mg PO DAILY #90 tabs 06/08/22 Estriol 1 g vaginal 2XW #42 grams 06/11/22 meloxicam 15 mg tablet 15 mg PO DAILY #30 tabs 07/30/22 sulfamethoxazole 800 1 tab PO BID #14 tabs 08/29/22 mg-trimethoprim 160 mg tablet lorazepam 0.5 mg tablet 0.5 mg PO BEDTIME PRN Sleep #30 09/01/22 tabs Allergies Allergy/AdvReac Type Severity Reaction Status Date / Time azithromycin [AZITHROMYCIN] Allergy Unknown Verified 09/04/22 13:09 codeine Allergy Unknown Verified 09/04/22 13:09 iodine [IODINE] Allergy Unknown Verified 09/04/22 13:09 Review of Systems Review of Systems Narrative: Constitutional, Eyes, ENT, Pulmonary, Cardiovascular, Gastrointestinal, Renal, Endocrine, Genitourinary, Musculoskeletal, Neurologic, Skin, and Psychiatric systems were reviewed and negative unless indicated in the HPI above. Patient History Medical History Atrial fibrillation (~2018) Carpal tunnel syndrome (~2013) Chicken pox (~1949) Chronic back pain (~2019) COPD (chronic obstructive pulmonary disease) Degenerative lumbar spinal stenosis Depression (~1989) History of tobacco use Hypertension Influenza Measles (~1948) Medicare annual wellness visit, subsequent Mumps (~1949) Osteoarthritis (~1997) Peripheral neuropathy Shoulder pain (~2019) Urinary incontinence (~2019) Surgical History Anesthesia History of arthroplasty History of bilateral knee replacement (~1998) History of hysterectomy (~1991) Hx of appendectomy Hx of breast biopsy Hx of lithotripsy Hx of tubal ligation Family History Father Cancer Mother History of heart disease UTI (urinary tract infection) Brother History of heart disease Diabetes mellitus Gout Grandfather History of heart disease Grandfather Cancer Grandmother Cancer Social History marital status: number of children: 2 household members: spouse Smoking Status: Former smoker Tobacco: How many years used: 25 alcohol intake: current during the past year weight has: remained stable caffeine: Yes Type(s) of exercise: walking frequency: 1-2 times per week duration: 45-60 minutes/day Smoking Status: Former smoker alcohol intake frequency: 0-2 drinks per day Alcohol type: wine Substance Use Type: does not use Exam Narrative Exam Narrative: Vitals reviewed. Nursing note reviewed Constitutional: interactive HENT: Moist mucous membranes EYES: No scleral icterus NECK: no masses CV: Well perfused peripherally, no cyanosis present PULM: Unlabored respirations, symmetric chest rise ABD: Non-distended MS: No gross deformities, no asymmetric edema noted SKIN: Warm and dry. PSYCH: Appropriate affect Neuro: Symmetric strength and sensation in the bilateral upper and lower extremities, no facial asymmetry appreciated, extra-ocular movements intact, symmetric facial sensation, palate elevates symmetrically, tongue protrudes midline, mild ataxia with gait Initial Vital Signs Initial Vital Signs: Vital Signs Temperature 97.5 F L 09/04/22 13:09 Pulse Rate 64 09/04/22 13:09 Respiratory Rate 16 09/04/22 13:09 Blood Pressure 132/58 L 09/04/22 13:09 Pulse Oximetry 96 09/04/22 13:09 Oxygen Delivery Method 09/04/22 13:09 Course Orders Ordered: ED Orders 09/04/22 13:12 XR chest 1V Stat EKG-12 Lead Stat 09/04/22 13:52 CT head/brain wo con Stat MR head/brain wo/w con Stat 09/04/22 14:28 Complete Blood Count AUTO DIFF Stat Comprehensive Metabolic Panel Stat Lipase Stat Magnesium Stat Partial Thromboplastin Time Stat Prothrombin Time INR Stat Troponin & CK Cardiac Panel Stat Vital Signs Vital signs: Vital Signs - 8 hr 09/04/22 13:42 09/04/22 14:11 09/04/22 15:15 Pulse Rate 64 66 Respiratory Rate Blood Pressure 126/72 Pulse Oximetry 98 95 Oxygen Delivery Method Room Air Room Air 09/04/22 15:30 09/04/22 15:30 09/04/22 16:00 Pulse Rate 62 Respiratory Rate 22 Blood Pressure 150/67 H 147/69 H Pulse Oximetry 98 Oxygen Delivery Method Room Air 09/04/22 16:00 09/04/22 16:30 09/04/22 16:30 Pulse Rate 68 59 L Respiratory Rate 20 16 Blood Pressure 154/67 H Pulse Oximetry 96 96 Oxygen Delivery Method Room Air Room Air 09/04/22 17:00 09/04/22 17:01 09/04/22 17:01 Pulse Rate 59 L 59 L Respiratory Rate 14 16 Blood Pressure 149/65 H Pulse Oximetry 96 96 Oxygen Delivery Method Room Air Room Air 09/04/22 17:30 09/04/22 17:30 09/04/22 17:48 Pulse Rate 59 L 66 Respiratory Rate 14 18 Blood Pressure 172/74 H Pulse Oximetry 98 100 Oxygen Delivery Method Room Air Room Air 09/04/22 17:54 09/04/22 17:54 09/04/22 18:00 Pulse Rate 60 Respiratory Rate 16 Blood Pressure 146/65 H 140/56 L Pulse Oximetry 99 Oxygen Delivery Method Room Air 09/04/22 18:00 09/04/22 18:30 09/04/22 18:30 Pulse Rate 61 61 Respiratory Rate 19 16 Blood Pressure 143/65 H Pulse Oximetry 98 97 Oxygen Delivery Method Room Air Room Air 09/04/22 19:00 09/04/22 19:01 09/04/22 19:01 Pulse Rate 61 61 Respiratory Rate 20 18 Blood Pressure 141/63 H Pulse Oximetry 95 95 Oxygen Delivery Method Room Air Room Air 09/04/22 19:30 09/04/22 19:31 09/04/22 19:31 Pulse Rate 89 76 Respiratory Rate 18 16 Blood Pressure 136/93 H Pulse Oximetry 93 94 Oxygen Delivery Method Room Air Room Air 09/04/22 20:00 09/04/22 20:00 09/04/22 20:30 Pulse Rate 65 Respiratory Rate 20 Blood Pressure 138/63 141/66 H Pulse Oximetry 94 Oxygen Delivery Method 09/04/22 20:30 Pulse Rate 63 Respiratory Rate 16 Blood Pressure Pulse Oximetry 94 Oxygen Delivery Method MDM - Dizziness Lab Data Result diagrams: 09/04/22 14:28 09/04/22 14:28 Labs: Lab Results 09/04/22 09/04/22 09/04/22 Range/Units 14:28 14:28 14:28 WBC 6.4 (4.5-11.0) X10^3/uL RBC 4.05 (4.0-5.2) X10^6/uL Hgb 11.9 L (12.0-16.0) g/dL Hct 36.4 (36-46) % MCV 89.9 (80-100) fL MCH 29.5 (26-34) PG MCHC 32.8 (30-36) % RDW 14.7 (11.6-14.8) % Plt Count 281 (150-400) X10^3/uL Neut % (Auto) 83.6 H (50-75) % Lymph % (Auto) 10.0 L (25-40) % [place] % (Auto) 5.3 (3-14) % Eos % (Auto) 0.4 L (2-4) % Baso % (Auto) 0.7 (0-2) % Neut # (Auto) 5400 (8427-1809) /uL Lymph # (Auto) 600 L (1024-7909) /uL [place] # (Auto) 300 (0-900) /uL Eos # (Auto) 0 (0-450) /uL Baso # (Auto) 0 (0-100) /uL PT 18.4 H (10.1-12.7) SECONDS INR 1.6 H (0.9-1.3) APTT 88 H* (26-36) SECONDS Sodium 137 (137-145) mmol/L Potassium 4.8 (3.4-5.1) mmol/L Chloride 102 (98-107) mmol/L Carbon Dioxide 22 (22-32) mmol/L BUN 29 H (7-17) mg/dL Creatinine 1.77 H (0.52-1.04) mg/dL Estimated GFR 29 L (>60) mL/min BUN/Creatinine Ratio 16.4 (6-22) Glucose 92 (80-110) mg/dL Calcium 10.1 (8.4-10.2) mg/dL Magnesium 2.3 (1.6-2.3) mg/dL Total Bilirubin 0.4 (0.2-1.3) mg/dL AST 28 (14-36) IU/L ALT 21 (<35) IU/L Alkaline Phosphatase 113 (38-126) U/L Total Creatine Kinase 65 (30-135) U/L CK-MB (CK-2) TNP CK-MB (CK-2) Rel Index TNP Troponin I < 0.012 (0.01-0.034) ng/mL Total Protein 7.5 (6.3-8.2) g/dL Albumin 4.3 (3.5-5.0) g/dL Globulin 3.2 (1.7-4.1) g/dL Albumin/Globulin Ratio 1.3 (1.0-2.8) Lipase 68 (23-300) U/L Urine Dip Bedside Urine Glucose Negative Bedside Urine Bilirubin - Negative Bedside Urine Ketone - Negative Urine Specific [place] 1.010 Bedside Urine Occult Blood - Negative Bedside Urine pH 6.0 Bedside Urine Protein - Negative Bedside Urine Urobilinogen - Negative Bedside Urine Nitrite - Negative Bedside Urine Leukocytes - Negative Esterase MDM Narrative Medical decision making narrative: 76-year-old female presenting with ataxia and nausea. Patient reports 3-4 days of symptoms. On presentation, vital signs notable for mild hypertension, otherwise reassuring. Physical exam notable for well-appearing 76-year-old female who is in no acute distress, reassuring cardiac and pulmonary exam, benign abdomen, neurologic exam notable for ataxia with ambulation. Initial is a concern for subacute CVA, mass lesion, electrolyte abnormality, infectious etiology, medication effect, peripheral vertigo. IV access was established and screening labs were obtained. CT imaging of the head was obtained and with concern for posterior fossa mass concerning for possible meningioma. Discussed case with Radiology. MR imaging was obtained to further delineate mass lesion identified. Discussed findings with patient at bedside. On repeat evaluation, patient does have stable exam. Discussed case with transfer service, Neurosurgery recommending transfer to [facility] for surgical intervention, accepted for transfer pending bed availability. Discussed recommendations with pt at bedside, agreeable with plan for transfer. Pt subsequently signed out to oncoming ED provider team pending transfer. Discharge Plan Departure Clinical Impression: Meningioma, Ataxia Prescriptions: No Action chlorthalidone 25 mg tablet 25 mg PO DAILY Pradaxa 150 mg capsule 150 mg PO BID flecainide 50 mg tablet 50 mg PO Q12H venlafaxine [Effexor XR] 150 mg capsule,extended release 24hr 150 mg PO DAILY Qty: 90 3RF Estriol 0.1 mg cream 1 g vaginal 2XW Qty: 42 6RF meloxicam 15 mg tablet 15 mg PO DAILY Qty: 30 2RF sulfamethoxazole-trimethoprim 800-160 mg tablet 1 tab PO BID Qty: 14 0RF lorazepam 0.5 mg tablet 0.5 mg PO BEDTIME PRN (Reason: Sleep) Qty: 30 2RF fluticasone propion-salmeterol [Advair Diskus] 250-50 mcg/dose blister with device 1 inh inhalation BID Qty: 60 1RF solifenacin 10 mg tablet 10 mg PO DAILY Qty: 90 3RF losartan 50 mg tablet 50 mg PO BID diltiazem HCl 360 mg capsule,extended release 24 hr 360 mg PO DAILY Referrals: David Rangel DO [Primary Care Provider] -
[2022-09-04 14:36] LABS: Add Manual Diff / Slide Review NO; Basophils Absolute Auto 0 /uL (0-100); Basophils Percent Auto 0.7 % (0-2); Eosinophils Absolute Auto 0 /uL (0-450); Eosinophils Percent Auto 0.4 % (2-4); Hematocrit 36.4 % (36-46); Hemoglobin 11.9 g/dL (12.0-16.0); Lymphocytes Absolute Auto 600 /uL (1100-4500); Mean Corpuscular HGB Conc 32.8 % (30-36); Mean Corpuscular Hemoglobin 29.5 PG (26-34); Mean Corpuscular Volume 89.9 fL (80-100); Monocytes Absolute Auto 300 /uL (0-900); Monocytes Percent Auto 5.3 % (3-14); Neutrophils Absolute Auto 5400 /uL (1500-7000); Neutrophils Percent Auto 83.6 % (50-75); Platelet Count 281 X10^3/uL (150-400); Red Blood Cell Count 4.05 X10^6/uL (4.0-5.2); Red Cell Distribution Width 14.7 % (11.6-14.8); White Blood Cell Count 6.4 X10^3/uL (4.5-11.0)
[2022-09-04 14:44] LABS: INR 1.6 (0.9-1.3); Prothrombin Time 18.4 SECONDS (10.1-12.7)
[2022-09-04 14:47] LABS: PTT Partial Thromboplastin Tim 88 SECONDS (26-36)
[2022-09-04 14:49] LABS: Alanine Aminotransferase 21 IU/L (<35); Albumin 4.3 g/dL (3.5-5.0); Albumin Globulin Ratio 1.3 (1.0-2.8); Alkaline Phosphatase 113 U/L (38-126); Aspartate Aminotransferase 28 IU/L (14-36); BUN Creatinine Ratio 16.4 (6-22); Bilirubin Total 0.4 mg/dL (0.2-1.3); Blood Urea Nitrogen 29 mg/dL (7-17); Calcium 10.1 mg/dL (8.4-10.2); Carbon Dioxide 22 mmol/L (22-32); Chloride 102 mmol/L (98-107); Creatine Kinase 65 U/L (30-135); Estimated Glomerular Filt Rate 29 mL/min (>60); Globulin 3.2 g/dL (1.7-4.1); Glucose 92 mg/dL (80-110); HEMOLYSIS 20 (0-50); Lipase 68 U/L (23-300); Magnesium 2.3 mg/dL (1.6-2.3); Potassium 4.8 mmol/L (3.4-5.1); Sodium 137 mmol/L (137-145); Total Protein 7.5 g/dL (6.3-8.2)
[2022-09-04 15:01] LABS: Troponin I < 0.012 ng/mL (0.01-0.034)
[2022-09-04] MEDS: dilTIAZem CD 180 MG CAP 360 MG PO (23:26)
[2022-09-04] MEDS: LOSARTAN 50 MG TABLET PO (23:26)
[2022-09-05] VITALS (21 sets, daily range): BP systolic 136–163; BP diastolic 63–92; PULSE 56–79; RESP 11–23; O2SAT 90–99
[2022-09-05 04:42] LABS: Add Manual Diff / Slide Review NO; Basophils Absolute Auto 100 /uL (0-100); Basophils Percent Auto 1.1 % (0-2); Eosinophils Absolute Auto 100 /uL (0-450); Eosinophils Percent Auto 1.4 % (2-4); Hematocrit 36.3 % (36-46); Hemoglobin 11.8 g/dL (12.0-16.0); INR 1.3 (0.9-1.3); Lymphocytes Absolute Auto 1600 /uL (1100-4500); Lymphocytes Percent Auto 24.1 % (25-40); Mean Corpuscular HGB Conc 32.6 % (30-36); Mean Corpuscular Hemoglobin 29.4 PG (26-34); Mean Corpuscular Volume 90.1 fL (80-100); Monocytes Absolute Auto 600 /uL (0-900); Monocytes Percent Auto 8.7 % (3-14); Neutrophils Absolute Auto 4300 /uL (1500-7000); Neutrophils Percent Auto 64.7 % (50-75); Platelet Count 293 X10^3/uL (150-400); Prothrombin Time 14.4 SECONDS (10.1-12.7); Red Blood Cell Count 4.03 X10^6/uL (4.0-5.2); Red Cell Distribution Width 15.1 % (11.6-14.8); White Blood Cell Count 6.6 X10^3/uL (4.5-11.0)
[2022-09-05 04:47] LABS: BUN Creatinine Ratio 17.1 (6-22); Blood Urea Nitrogen 29 mg/dL (7-17); Calcium 10.3 mg/dL (8.4-10.2); Carbon Dioxide 24 mmol/L (22-32); Chloride 104 mmol/L (98-107); Estimated Glomerular Filt Rate 31 mL/min (>60); Glucose 112 mg/dL (80-110); HEMOLYSIS < 15 (0-50); Sodium 139 mmol/L (137-145)
[2022-09-05 08:49] LABS: COVID19 -Nasal RAPID Negative (Negative)
[2022-09-05] MEDS: dilTIAZem CD 180 MG CAP 360 MG PO (09:02)
[2022-09-05] MEDS: CHLORTHALIDONE 25 MG TABLET PO (09:03)
[2022-09-05] MEDS: LOSARTAN 50 MG TABLET PO (09:03)
== END 2022-09-05 11:10 | disposition home or self-care (01) ==
PROVIDERS: Emergency Medicine; Emergency Provider Emergency Medicine; PCP Family Medicine
DX: D32.9 Benign neoplasm of meninges, unspecified (principal); R27.0 Ataxia, unspecified; I48.91 Unspecified atrial fibrillation; Z79.01 Long term (current) use of anticoagulants; Z79.899 Other long term (current) drug therapy; Z20.822 Contact with and (suspected) exposure to COVID-19
CPT/HCPCS: 36415; 70450; 70553; 71045; 80048; 80053; 81003; 82550; 83690; 83735; 84484; 85025; 85610; 85730; 87635; 93005; 93010; 99284; 99285; C9803

== ENCOUNTER → 2022-09-24 10:58 | Outpatient (CLI) | payer OTHER, SELFPAY ==
--- NOTE | 2022-09-24 11:06 | DIET.OUTPTC ---
Dietary Outpatient Consultation Note Consultation Date: 09/24/2022 This is 6/6 nutrition visits on pt [facility] but pt received another authorization for additional 6 visits which we will use. eGFR 29-31 in early August, is this new baseline or situational? Pt getting new labs to monitor. Pt diagnosed with benign brain tumor a few weeks ago. Has put weight management to the side for now until she has f/u with neurosurgeon in 2w. Pt using cyril yesterday and today to track PO intake as she has maintained 14% weight loss in 6mo and does not want to lose progress made. Discussed iimportance of finding out next steps with surgeon and that maintaining current weight loss is priority over continued loss at this time. f/u planned for 6w from now to reassess weight management progress and follow renal trends. Electronically Signed by: Karen Vera 09/24/22 11:06 Clinical Dietitian [address] [id number]
== END ==
PROVIDERS: PCP Family Medicine; Referring Provider Family Medicine; Visit Provider Family Medicine
DX: R06.00 Dyspnea, unspecified (principal); Z71.3 Dietary counseling and surveillance
CPT/HCPCS: 97803

== ENCOUNTER → 2022-09-24 11:27 | Outpatient (CLI) | payer OTHER, SELFPAY ==
[2022-09-24 12:19] LABS: Appearance Urine UA CLOUDY; Bilirubin Urine UA NEGATIVE (NEGATIVE); Color Urine UA YELLOW; Glucose Urine UA NEGATIVE (Negative); Ketones Urine UA NEGATIVE (NEGATIVE); Leukocyte Esterase Urine UA NEGATIVE (NEGATIVE); Nitrite Urine UA NEGATIVE (Negative); Occult Blood Urine UA NEGATIVE (Negative); Protein Urine UA NEGATIVE (Negative); Urobilinogen Urine UA 0.2 E.U./dL (0.2)
[2022-09-24 12:21] LABS: pH Urine UA 7.5 (4.5-8.0)
[2022-09-24 13:09] LABS: Bacteria Urine Moderate (10-30); Culture Indicated Urine Cult Not Indicated; RBC Urine 1-5/HPF (0-5/HPF); Squamous Epithelial Cell Urine 5-10 /HPF (0-5/HPF); WBC Urine 0-1/HPF (0-5/HPF)
== END ==
PROVIDERS: PCP Family Medicine; Referring Provider Family Medicine; Visit Provider Family Medicine
DX: N39.0 Urinary tract infection, site not specified (principal)
CPT/HCPCS: 81001

== ENCOUNTER → 2022-10-01 11:25 | Outpatient (CLI) | payer OTHER, SELFPAY ==
[2022-10-01 13:26] LABS: Free T4, Direct Thyroxine 0.95 ng/dL (0.78-2.19)
[2022-10-01 13:40] LABS: Thyroid Stimulating Hormone 4.92 uIU/mL (0.47-4.68)
[2022-10-01 13:57] LABS: BUN Creatinine Ratio 20.4 (6-22); Blood Urea Nitrogen 22 mg/dL (7-17); Calcium 9.4 mg/dL (8.4-10.2); Carbon Dioxide 25 mmol/L (22-32); Chloride 104 mmol/L (98-107); Estimated Glomerular Filt Rate 53 mL/min (>60); Glucose 103 mg/dL (80-110); HEMOLYSIS < 15 (0-50); Magnesium 2.1 mg/dL (1.6-2.3); Potassium 4.1 mmol/L (3.4-5.1); Sodium 139 mmol/L (137-145)
== END ==
PROVIDERS: PCP Family Medicine; Referring Provider Internal Medicine; Visit Provider Internal Medicine
DX: R00.2 Palpitations (principal); I48.91 Unspecified atrial fibrillation
CPT/HCPCS: 36415; 80048; 83735; 84439; 84443

== ENCOUNTER → 2022-10-31 13:14 | Outpatient (CLI) | payer OTHER, SELFPAY ==
--- NOTE | 2022-10-31 13:15 | DI.CT.S_ITS ---
PROCEDURE: CT ABDOMEN ADRENAL PROTOCOL INDICATIONS: Assess adrenal gland nodule TECHNIQUE: Noncontrast 3 mm thick sections acquired from the diaphragms to the iliac crests. After the administration of intravenous contrast, 3 mm thick venous-phase and 15-minute delayed images acquired from the diaphragms to the iliac crests. For radiation dose reduction, the following was used: automated exposure control, adjustment of mA and/or kV according to patient size. COMPARISON: None. FINDINGS: Image quality: Good Lower chest: Scattered scarring/atelectasis There are annular valve calcifications. Solid organs: Liver appears unremarkable. Subcentimeter lesions are too small to characterize. Possible cholelithiasis. No pathologic dilation of the biliary tree or pancreatic duct. Splenic granuloma. Left adrenal nodule is compatible with a lipid rich adenoma measuring up to 2 point 3 x 2.0 cm. Washout characteristics also compatible with adenoma. No renal mass. No hydronephrosis. Vessels and lymph nodes: No abdominal aortic aneurysm. No pathologic adenopathy by size criteria. Bowel and peritoneum: No evidence of bowel obstruction. No pathologic ascites. Body wall: Unremarkable Bones: Degenerative changes are present. IMPRESSION: Left adrenal adenoma. Correlation with laboratory testing for functional status is suggested. Possible cholelithiasis, consider correlation with ultrasound if needed. Other findings as above. Dictated by: Oren Brown M.D. on 10/31/2022 at 17:25 Approved by: Oren Brown M.D. on 10/31/2022 at 17:30
== END ==
PROVIDERS: PCP Family Medicine; Referring Provider Family Medicine; Visit Provider Family Medicine
DX: D35.02 Benign neoplasm of left adrenal gland (principal)
CPT/HCPCS: 74170; Q9967

== ENCOUNTER → 2022-11-08 12:46 | Outpatient (CLI) | payer OTHER, SELFPAY ==
--- NOTE | 2022-11-08 13:09 | DIET.OUTPTC ---
Dietary Outpatient Consultation Note Consultation Date: 11/08/[address] 77[address] f/u (2 of 6 per referral) for obesity. Pt scheduled to have neurosurgery in late January for tumor on cerebellum. Pt states this causing some balance issues. Pt stopped exercising when she was diagnosed due to stress. She has since then reduced her responsibilities with volunteering to focus on her health. Pt is meal planning and feeling confident with her food choices. Some nighttime snacking but recently found [employer] frozen yogurt bars which are low kcal. She will have one of these or 3c popcorn in evening if feeling snacky. Pts goal is to maintain 180-190# through the spring. Discussed using treking poles for walks and doing short bursts to support balance. Pt working on core strength and purchased a medicine ball. F/u in 6w to continue monitoring weight and problem solving. Electronically Signed by: Karen Vera 11/08/22 13:09 Clinical Dietitian [address] [address]
== END ==
PROVIDERS: PCP Family Medicine; Referring Provider Family Medicine; Visit Provider Family Medicine
DX: E66.9 Obesity, unspecified (principal); G93.89 Other specified disorders of brain; Z71.3 Dietary counseling and surveillance; E66.3 Overweight
CPT/HCPCS: 97803

== ENCOUNTER → 2022-12-10 17:11 | Outpatient (CLI) | payer OTHER, SELFPAY ==
--- NOTE | 2022-12-10 | DI.MRI.S_ITS ---
PROCEDURE: MR HEAD/BRAIN WO/W CON INDICATIONS: Neoplasm of unspecified behavior of brain TECHNIQUE: Noncontrast axial T1 spin echo, axial T2 fast spin echo, sagittal and axial FLAIR, coronal T2 fast spin echo, axial gradient echo, axial diffusion and ADC through the brain. After the administration of contrast, axial and coronal and sagittal 3D VIBE or T1 spin echo with fat saturation through the brain. COMPARISON: [facility], MR, MR HEAD/BRAIN WO/W CON, 09/04/2022, 14:26. FINDINGS: Image quality: Excellent. CSF Spaces: Basal cisterns are patent. No extra-axial fluid collections. Ventricles are normal in size and shape. Brain: No intracranial masses or hemorrhage. Tello/white matter interface is normal. Brainstem appears normal. Diffusion-weighted sequence is unremarkable without evidence of acute infarct. Normal intravascular flow voids are present. Mild atrophy and multifocal white matter chronic ischemic changes again noted. No evidence of acute infarct. Extra-axial homogeneously enhancing meningioma associated with a small dural tail on the right tentorial leaf extending into the cerebellopontine angle cistern is again noted remains entirely unchanged. Mass effect on the right cerebellar hemisphere and noted without edema. Skull and face: Calvarial marrow is normal in signal. Orbits appear normal. Sinuses: Sinuses and mastoids appear clear. IMPRESSION: Stable right CPA meningioma Atrophy and chronic ischemic change without acute infarct or hemorrhage Approved by: Dada Hutchinson M.D. on 12/11/2022 at 9:59
== END ==
PROVIDERS: PCP Family Medicine; Referring Provider Neurological Surgery; Visit Provider Neurological Surgery
DX: D32.0 Benign neoplasm of cerebral meninges (principal)
CPT/HCPCS: 70553; A9579

== ENCOUNTER → 2022-12-24 10:58 | Outpatient (CLI) | payer OTHER, SELFPAY ==
--- NOTE | 2022-12-24 11:53 | DIET.CONS ---
Dietary Consultation Note Assessment: 77y F [address] f/u for help with nutrition plan for obesity. Pt has been able to maintain 25# weight loss x1y. Pt continues to have stressors regarding her upcoming neurosurgical consultation, balance issues, and afib s/p ablation. Pt established with personal caregiver who is helping her develop a safe workout plan to support balance and LBM. Pt restarting [place] diet to help with her chronic inflammation. Will follow this for 6w then continue supportive dietary intake minimizing inflammatory foods. Pt reiterates hx of disordered relationship with food. Pt currently not eating meals at table, eats in front of TV with spouse. Pt has hx etoh parents who would argue at the table so she would eat as fast as possible to get out of that environment. Pt continues to eat quickly. Interventions: Long discussion with patient about prioritizing self-care and working together to discover fci supportive nutrition/exercise plan. Discussed reclaiming the dinner table for self and avoid activities that take away from act of eating mindfully. Pt plans to sit at the table to eat meals, will avoid reading or watching TV at the table and will have a journal nearby to jot down or draw anything that may come up from past experiences. Monitoring/Evaluations: f/u in 4w. Electronically Signed by: Karen Vera 12/24/22 11:[address] [id number]
== END ==
PROVIDERS: PCP Family Medicine; Referring Provider Family Medicine; Visit Provider Family Medicine
DX: E66.9 Obesity, unspecified (principal); Z71.3 Dietary counseling and surveillance
CPT/HCPCS: 97803

== ENCOUNTER → 2023-01-08 12:24 | Outpatient (CLI) | payer OTHER, SELFPAY ==
[2023-01-08 13:56] LABS: Eosinophils Percent Auto 1.6 % (2-4); Hematocrit 33.6 % (36-46); Hemoglobin 11.2 g/dL (12.0-16.0); Lymphocytes Percent Auto 25.3 % (25-40); Mean Corpuscular HGB Conc 33.2 % (30-36); Mean Corpuscular Volume 90.4 fL (80-100); Monocytes Percent Auto 9.3 % (3-14); Neutrophils Percent Auto 62.8 % (50-75); Platelet Count 207 X10^3/uL (150-400); Red Blood Cell Count 3.72 X10^6/uL (4.0-5.2); Red Cell Distribution Width 15.2 % (11.6-14.8); White Blood Cell Count 4.3 X10^3/uL (4.5-11.0)
[2023-01-08 13:57] LABS: Add Manual Diff / Slide Review NO; Basophils Absolute Auto 0 /uL (0-100); Eosinophils Absolute Auto 100 /uL (0-450); Lymphocytes Absolute Auto 1100 /uL (1100-4500); Monocytes Absolute Auto 400 /uL (0-900); Neutrophils Absolute Auto 2700 /uL (1500-7000)
[2023-01-08 14:16] LABS: Alanine Aminotransferase 22 IU/L (<35); Albumin 3.9 g/dL (3.5-5.0); Albumin Globulin Ratio 1.5 (1.0-2.8); Alkaline Phosphatase 74 U/L (38-126); Aspartate Aminotransferase 28 IU/L (14-36); BUN Creatinine Ratio 29.1 (6-22); Bilirubin Total 0.3 mg/dL (0.2-1.3); Blood Urea Nitrogen 34 mg/dL (7-17); Calcium 9.7 mg/dL (8.4-10.2); Carbon Dioxide 28 mmol/L (22-32); Chloride 106 mmol/L (98-107); Estimated Glomerular Filt Rate 47 mL/min (>60); Globulin 2.6 g/dL (1.7-4.1); Glucose 111 mg/dL (80-110); HEMOLYSIS < 15 (0-50); Potassium 3.7 mmol/L (3.4-5.1); Sodium 141 mmol/L (137-145); Total Protein 6.5 g/dL (6.3-8.2)
[2023-01-08 23:09] LABS: Thyroid Stimulating Hormone 0.956 uIU/mL (0.47-4.68)
[2023-01-09 00:33] LABS: Free T4, Direct Thyroxine 1.37 ng/dL (0.78-2.19)
== END ==
PROVIDERS: PCP Family Medicine; Referring Provider Family Medicine; Visit Provider Family Medicine
DX: E03.9 Hypothyroidism, unspecified (principal)
CPT/HCPCS: 36415; 80053; 84439; 84443; 85025

== ENCOUNTER 2023-02-13 15:06 | Observation (INO) | payer OTHER, SELFPAY ==
[2023-02-13] VITALS (27 sets, daily range): BP systolic 145–189; BP diastolic 69–110; PULSE 58–72; RESP 0–29; TEMP 36.6–36.8; O2SAT 88–97; BMI 29.8
--- NOTE | 2023-02-13 15:22 | DI.CT.S_ITS ---
PROCEDURE: CT HEAD/BRAIN WO CON INDICATIONS: recent craniotomy for cerebellar pontine angle meningioma TECHNIQUE: Noncontrast 4.5 mm thick angled axial sections acquired from the foramen magnum to the vertex, with coronal and sagittal reformats. For radiation dose reduction, the following was used: automated exposure control, adjustment of mA and/or kV according to patient size. COMPARISON: [facility], MR, MR HEAD/BRAIN WO/W CON, 12/10/2022, 17:29. [facility], MR, MR HEAD/BRAIN WO/W CON, 09/04/2022, 14:26. [facility], CT, CT HEAD/BRAIN WO CON, 09/04/2022, 14:09. FINDINGS: Image quality: Excellent. CSF spaces: Basal cisterns are patent. No extra-axial fluid collections. The ventricles are symmetric in size and shape. Brain: There is been interval resection of the previously seen right cerebellopontine angle cistern mass. No residual mass can be seen on this study. No intracranial bleeds or masses. There is cerebral volume loss for age, with resultant ventricular and sulcal prominence. There are periventricular and deep white matter chronic small vessel ischemic changes. There is intracranial internal carotid artery atherosclerosis. Skull and face: Right posterolateral craniotomy change can be seen. Calvarium and visualized facial bones appear intact, without suspicious lesions. Incidental note is made of hyperostosis frontalis. This is not considered to be pathologic in a woman of this age. Sinuses: Visualized sinuses and mastoids are clear. IMPRESSION: Interval resection of the right cerebellopontine angle cistern meningioma. No postoperative complication is seen. Dictated by: Clark Ramos M.D. on 02/13/2023 at 14:58 Approved by: Clark Ramos M.D. on 02/13/2023 at 15:00
--- NOTE | 2023-02-13 15:28 | ED.NAVMDI ---
HPI - Nausea/Vomiting/Diarrhea <August Pastor, - Last Filed: 02/19/23 04:08> General Chief complaint: Nausea/Vomiting/Diarrhea Stated complaint: symptoms after recent crainotomy Time Seen by Provider: 02/13/23 15:22 Source: patient Mode of arrival: Wheelchair History of Present Illness HPI Narrative: 77-year-old female former smoker with history of chronic kidney disease, prediabetes, adrenal gland anomaly, cardiac ablation, meningioma with recent craniotomy (last Saturday at [facility]) presents with a chief complaint of headache, some dizziness and persistent vomiting since last night. She denies trauma or injury. She denies any blurred or double vision. She denies runny nose, sore throat or cough. She was admitted at [facility] on Saturday and discharged on Saturday. She had been doing well over the course of the week until last night Related Data Home Medications Medication Instructions Recorded Confirmed chlorthalidone 25 mg tablet 25 mg PO QAM 04/29/21 02/13/23 dabigatran etexilate 150 mg 150 mg PO BID 04/29/21 02/13/23 capsule (Pradaxa) flecainide 50 mg tablet 100 mg PO BID 04/29/21 02/13/23 diltiazem HCl 360 mg capsule,24 360 mg PO QPM 05/08/22 02/13/23 hr,extended release solifenacin 10 mg tablet 10 mg PO QPM 09/04/22 02/13/23 levothyroxine 50 mcg tablet 50 mcg PO DAILY 02/13/23 02/13/23 Previous Rx's Medication Instructions Recorded venlafaxine 150 mg 150 mg PO DAILY #90 caps 04/10/22 capsule,extended release 24 hr (Effexor XR) meloxicam 15 mg tablet 15 mg PO DAILY #30 tabs 10/23/22 vibegron 75 mg tablet (Gemtesa) 75 mg PO DAILY #30 tabs 01/22/23 lorazepam 0.5 mg tablet 0.5 mg PO BEDTIME PRN insomnia #30 02/06/23 tabs Allergies Allergy/AdvReac Type Severity Reaction Status Date / Time azithromycin [AZITHROMYCIN] Allergy Unknown Verified 01/11/23 10:14 codeine Allergy Unknown Verified 01/11/23 10:14 iodine [IODINE] Allergy Unknown Verified 01/11/23 10:14 latex Allergy Unknown Hives Verified 02/13/23 15:46 Review of Systems <August Pastor DO - Last Filed: 02/19/23 04:08> Review of Systems Narrative: GENERAL: See HPI HEENT: See HPI RESPIRATORY: Denies dyspnea, cough, wheezing, hemoptysis, sputum. CARDIOVASCULAR: See HPI GASTROINTESTINAL: See HPI : Denies dysuria, frequency, incontinence, hematuria, urinary retention. MUSCULOSKELETAL: denies weakness, joint pain, or bony pain SKIN: Denies rash, skin lesions, or other NEUROLOGIC: Denies weakness, headache, numbness, change in speech, confusion, seizures, incoordination. PSYCHIATRIC: No concerning psychosocial issues. 12 point review of systems is negative except for those stated above Patient History <August Pastor DO - Last Filed: 02/19/23 04:08> Medical History Adrenal gland anomaly Anemia Atrial fibrillation (~2018) Carpal tunnel syndrome (~2013) Chicken pox (~1949) Chronic back pain (~2019) Chronic kidney disease COPD (chronic obstructive pulmonary disease) Degenerative lumbar spinal stenosis Depression (~1989) Encounter for pre-operative cardiovascular clearance History of tobacco use Hypertension Hypothyroidism Influenza Measles (~1948) Medicare annual wellness visit, subsequent Meningioma Mumps (~1949) Osteoarthritis (~1997) Overactive bladder Peripheral neuropathy Pre-diabetes Shoulder pain (~2019) Urge incontinence Urinary incontinence (~2019) Surgical History Anesthesia History of arthroplasty History of bilateral knee replacement (~1998) History of cardiac radiofrequency ablation History of hysterectomy (~1991) Hx of appendectomy Hx of breast biopsy Hx of lithotripsy Hx of tubal ligation Family History Father Cancer Mother History of heart disease UTI (urinary tract infection) Brother History of heart disease Diabetes mellitus Gout Grandfather History of heart disease Grandfather Cancer Grandmother Cancer Social History marital status: number of children: 2 household members: spouse Smoking Status: Former smoker Tobacco: How many years used: 25 alcohol intake: current during the past year weight has: remained stable caffeine: Yes Type(s) of exercise: walking frequency: 1-2 times per week duration: 45-60 minutes/day Smoking Status: Former smoker alcohol intake frequency: 0-2 drinks per day Alcohol type: wine Substance Use Type: does not use Exam <DO Hiwot Guy Last Filed: 02/19/23 04:08> Narrative Exam Narrative: GENERAL: [77] year old patient appears stated age. Well-developed patient, in mild distress. HEAD: Atraumatic. Normocephalic. EYES: Pupils equal round and reactive. Extraocular motions intact. No scleral icterus. No injection or drainage. ENT: Nose without bleeding, purulent drainage. Throat without erythema, tonsillar hypertrophy or exudate. Airway patent. NECK: Trachea midline. Non tender CARDIOVASCULAR: Regular rate and rhythm without murmurs, gallops, or rubs. RESPIRATORY: Clear to auscultation. Breath sounds equal bilaterally. No wheezes, rales, or rhonchi. GASTROINTESTINAL: Abdomen soft, non-tender, nondistended. EXTREMITIES: No edema or joint tenderness. BACK: Nontender without deformity or crepitance. No flank tenderness. NEURO: AOx3. SKIN: No rash or erythema of visible areas Initial Vital Signs Initial Vital Signs: Vital Signs Temperature 98.3 F 02/13/23 15:14 Pulse Rate 72 02/13/23 15:14 Respiratory Rate 18 02/13/23 15:14 Blood Pressure 149/87 H 02/13/23 15:14 Pulse Oximetry 94 02/13/23 15:14 Oxygen Delivery Method Room Air 02/13/23 15:14 <Brenton Palma DO - Last Filed: 02/13/23 21:42> Initial Vital Signs Initial Vital Signs: Vital Signs Temperature 98.3 F 02/13/23 15:14 Pulse Rate 72 02/13/23 15:14 Respiratory Rate 18 02/13/23 15:14 Blood Pressure 149/87 H 02/13/23 15:14 Pulse Oximetry 94 02/13/23 15:14 Oxygen Delivery Method Room Air 02/13/23 15:14 Course <August Pastor DO - Last Filed: 02/19/23 04:08> Orders Ordered: Discontinued Medications Acetaminophen (Acetaminophen 325 Mg Tablet) 650 mg PO Q6H PRN PRN Reason: Fever/Mild Pain (1-3) Albuterol/Ipratropium (Albuterol/Ipratropium 3 Ml Ampul) 3 ml INH RTQ4HR PRN PRN Reason: Shortness Of Breath Diltiazem HCl (Diltiazem Cd 180 Mg Cap) 360 mg PO QPM [facility] Diphenhydramine HCl (Diphenhydramine 50 Mg/Ml Vial) 25 mg IV NOW ONE Stop: 02/13/23 15:44 Last Admin: 02/13/23 15:55 Dose: 25 mg Documented By: SPF Famotidine (Famotidine 20 Mg/2 Ml Vial) 20 mg IV NOW [facility] Last Admin: 02/13/23 15:59 Dose: 20 mg Documented By: SPF Flecainide Acetate (Flecainide 100 Mg Tablet) 100 mg PO NOW ONE Stop: 02/13/23 19:07 Last Admin: 02/13/23 19:46 Dose: 100 mg Documented By: BS Flecainide Acetate (Flecainide 100 Mg Tablet) 100 mg PO BID [facility] Last Admin: 02/14/23 08:19 Dose: 100 mg Documented By: SB Sodium Chloride (Normal Saline 0.9%) 1,000 mls @ 1,000 mls/hr IV BOLUS ONE Stop: 02/13/23 18:31 Last Infusion: 02/13/23 20:04 Dose: 0 mls/hr Documented By: Infusion: 02/13/23 19:39 Dose: 1,000 mls/hr Documented By: Infusion: 02/13/23 19:00 Dose: 0 mls/hr Documented By: Admin: 02/13/23 18:14 Dose: 1,000 mls/hr Documented By: SPF Doxycycline Hyclate 100 mg/ (Sodium Chloride) 100 mls @ 100 mls/hr IV NOW ONE Stop: 02/13/23 18:38 Last Infusion: 02/13/23 20:04 Dose: 0 mls/hr Documented By: Admin: 02/13/23 18:56 Dose: 100 mls/hr Documented By: SPF Ceftriaxone Sodium 1,000 mg/ (Sodium Chloride) 100 mls @ 200 mls/hr IV Q24H [facility] Last Admin: 02/14/23 00:03 Dose: 200 mls/hr Documented By: CONSTANCE Doxycycline Hyclate 100 mg/ (Sodium Chloride) 100 mls @ 100 mls/hr IV Q12H [facility] Last Admin: 02/14/23 08:19 Dose: 100 mls/hr Documented By: SB Levothyroxine Sodium (Levothyroxine 50 Mcg Tablet) 50 mcg PO DAILY [facility] Last Admin: 02/14/23 08:19 Dose: 50 mcg Documented By: SB Losartan Potassium (Losartan 50 Mg Tablet) 50 mg PO NOW ONE Stop: 02/13/23 19:08 Last Admin: 02/13/23 19:45 Dose: 50 mg Documented By: BS Methylprednisolone (Methylprednisolone 125 Mg/2 Ml Vial) 125 mg IV NOW ONE Stop: 02/13/23 15:44 Last Admin: 02/13/23 15:58 Dose: 125 mg Documented By: BENNY Naloxone HCl (Naloxone 0.4 Mg/Ml Vial) 0.2 mg IV Q2MIN PRN PRN Reason: Opiate Reversal Ondansetron HCl (Ondansetron 4 Mg/2 Ml Inj) 4 mg IV NOW ONE Stop: 02/13/23 19:33 Last Admin: 02/13/23 19:47 Dose: 4 mg Documented By: ARTEMIO Ondansetron HCl (Ondansetron 4 Mg/2 Ml Inj) 4 mg IV Q8HR PRN PRN Reason: Nausea And Vomiting Oxycodone HCl (Oxycodone Ir 5 Mg Tablet) 5 mg PO Q4HR PRN PRN Reason: Pain, Moderate (4-6) Pantoprazole Sodium (Pantoprazole 40 Mg Vial) 40 mg IV NOW ONE Stop: 02/13/23 19:33 Last Admin: 02/13/23 19:46 Dose: 40 mg Documented By: ARTEMIO Venlafaxine HCl (Venlafaxine Er 75 Mg Cap) 150 mg PO DAILY [facility] Last Admin: 02/14/23 08:19 Dose: 150 mg Documented By: SB Vital Signs Vital signs: Vital Signs - 8 hr 02/13/23 15:14 02/13/23 15:54 02/13/23 16:00 Temperature 98.3 F Pulse Rate 72 64 Respiratory Rate 18 16 Blood Pressure 149/87 H 146/69 H Pulse Oximetry 94 92 Oxygen Delivery Method Room Air Oxygen Flow Rate 02/13/23 16:00 02/13/23 16:30 02/13/23 16:30 Temperature Pulse Rate 64 59 L Respiratory Rate 21 20 Blood Pressure 157/74 H Pulse Oximetry 92 Oxygen Delivery Method Room Air Oxygen Flow Rate 02/13/23 17:00 02/13/23 17:00 02/13/23 17:30 Temperature Pulse Rate 59 L 59 L Respiratory Rate 10 L 0 L Blood Pressure 165/74 H Pulse Oximetry 92 93 Oxygen Delivery Method Room Air Oxygen Flow Rate 02/13/23 18:00 02/13/23 18:20 02/13/23 18:20 Temperature Pulse Rate 60 62 Respiratory Rate 0 L 21 Blood Pressure 145/69 H Pulse Oximetry 92 94 Oxygen Delivery Method Oxygen Flow Rate 02/13/23 18:30 02/13/23 18:31 02/13/23 18:31 Temperature Pulse Rate 62 63 Respiratory Rate 24 29 H Blood Pressure 165/110 H Pulse Oximetry 94 Oxygen Delivery Method Room Air Oxygen Flow Rate 02/13/23 18:40 02/13/23 18:40 02/13/23 19:00 Temperature Pulse Rate 65 59 L Respiratory Rate 24 20 Blood Pressure 183/89 H Pulse Oximetry 97 92 Oxygen Delivery Method Room Air Room Air Oxygen Flow Rate 02/13/23 19:01 02/13/23 19:01 02/13/23 19:30 Temperature Pulse Rate 61 Respiratory Rate 20 Blood Pressure 155/72 H 146/70 H Pulse Oximetry 91 Oxygen Delivery Method Room Air Oxygen Flow Rate 02/13/23 19:30 02/13/23 19:45 02/13/23 20:03 Temperature Pulse Rate 61 62 Respiratory Rate 21 24 Blood Pressure 146/70 H Pulse Oximetry 92 93 Oxygen Delivery Method Room Air Oxygen Flow Rate 02/13/23 20:05 02/13/23 20:05 02/13/23 20:11 Temperature Pulse Rate 65 61 Respiratory Rate 12 28 H Blood Pressure 189/77 H Pulse Oximetry 95 95 Oxygen Delivery Method Oxygen Flow Rate 02/13/23 20:11 02/13/23 20:30 02/13/23 20:30 Temperature Pulse Rate 60 Respiratory Rate 20 Blood Pressure 157/74 H 162/77 H Pulse Oximetry 94 Oxygen Delivery Method Room Air Oxygen Flow Rate 02/13/23 20:50 02/13/23 20:51 02/13/23 21:00 Temperature Pulse Rate 62 60 Respiratory Rate 16 17 Blood Pressure 159/70 H Pulse Oximetry 88 L 92 Oxygen Delivery Method Room Air Nasal Cannula Oxygen Flow Rate 1 02/13/23 21:00 Temperature Pulse Rate 60 Respiratory Rate 20 Blood Pressure Pulse Oximetry 92 Oxygen Delivery Method Nasal Cannula Oxygen Flow Rate 1 <Brenton Palma, DO - Last Filed: 02/13/23 21:42> Orders Ordered: Discontinued Medications Acetaminophen (Acetaminophen 325 Mg Tablet) 650 mg PO Q6H PRN PRN Reason: Fever/Mild Pain (1-3) Albuterol/Ipratropium (Albuterol/Ipratropium 3 Ml Ampul) 3 ml INH RTQ4HR PRN PRN Reason: Shortness Of Breath Diltiazem HCl (Diltiazem Cd 180 Mg Cap) 360 mg PO QPM [facility] Diphenhydramine HCl (Diphenhydramine 50 Mg/Ml Vial) 25 mg IV NOW ONE Stop: 02/13/23 15:44 Last Admin: 02/13/23 15:55 Dose: 25 mg Documented By: SPF Famotidine (Famotidine 20 Mg/2 Ml Vial) 20 mg IV NOW [facility] Last Admin: 02/13/23 15:59 Dose: 20 mg Documented By: SPF Flecainide Acetate (Flecainide 100 Mg Tablet) 100 mg PO NOW ONE Stop: 02/13/23 19:07 Last Admin: 02/13/23 19:46 Dose: 100 mg Documented By: ARTEMIO Flecainide Acetate (Flecainide 100 Mg Tablet) 100 mg PO BID [facility] Last Admin: 02/14/23 08:19 Dose: 100 mg Documented By: SB Sodium Chloride (Normal Saline 0.9%) 1,000 mls @ 1,000 mls/hr IV BOLUS ONE Stop: 02/13/23 18:31 Last Infusion: 02/13/23 20:04 Dose: 0 mls/hr Documented By: Infusion: 02/13/23 19:39 Dose: 1,000 mls/hr Documented By: Infusion: 02/13/23 19:00 Dose: 0 mls/hr Documented By: Admin: 02/13/23 18:14 Dose: 1,000 mls/hr Documented By: SPF Doxycycline Hyclate 100 mg/ (Sodium Chloride) 100 mls @ 100 mls/hr IV NOW ONE Stop: 02/13/23 18:38 Last Infusion: 02/13/23 20:04 Dose: 0 mls/hr Documented By: Admin: 02/13/23 18:56 Dose: 100 mls/hr Documented By: SPF Ceftriaxone Sodium 1,000 mg/ (Sodium Chloride) 100 mls @ 200 mls/hr IV Q24H [facility] Last Admin: 02/14/23 00:03 Dose: 200 mls/hr Documented By: CONSTANCE Doxycycline Hyclate 100 mg/ (Sodium Chloride) 100 mls @ 100 mls/hr IV Q12H [facility] Last Admin: 02/14/23 08:19 Dose: 100 mls/hr Documented By: BRET Levothyroxine Sodium (Levothyroxine 50 Mcg Tablet) 50 mcg PO DAILY [facility] Last Admin: 02/14/23 08:19 Dose: 50 mcg Documented By: SB Losartan Potassium (Losartan 50 Mg Tablet) 50 mg PO NOW ONE Stop: 02/13/23 19:08 Last Admin: 02/13/23 19:45 Dose: 50 mg Documented By: ARTEMIO Methylprednisolone (Methylprednisolone 125 Mg/2 Ml Vial) 125 mg IV NOW ONE Stop: 02/13/23 15:44 Last Admin: 02/13/23 15:58 Dose: 125 mg Documented By: SPF Naloxone HCl (Naloxone 0.4 Mg/Ml Vial) 0.2 mg IV Q2MIN PRN PRN Reason: Opiate Reversal Ondansetron HCl (Ondansetron 4 Mg/2 Ml Inj) 4 mg IV NOW ONE Stop: 02/13/23 19:33 Last Admin: 02/13/23 19:47 Dose: 4 mg Documented By: ARTEMIO Ondansetron HCl (Ondansetron 4 Mg/2 Ml Inj) 4 mg IV Q8HR PRN PRN Reason: Nausea And Vomiting Oxycodone HCl (Oxycodone Ir 5 Mg Tablet) 5 mg PO Q4HR PRN PRN Reason: Pain, Moderate (4-6) Pantoprazole Sodium (Pantoprazole 40 Mg Vial) 40 mg IV NOW ONE Stop: 02/13/23 19:33 Last Admin: 02/13/23 19:46 Dose: 40 mg Documented By: BS Venlafaxine HCl (Venlafaxine Er 75 Mg Cap) 150 mg PO DAILY [facility] Last Admin: 02/14/23 08:19 Dose: 150 mg Documented By: SB Vital Signs Vital signs: Vital Signs - 8 hr 02/13/23 15:14 02/13/23 15:54 02/13/23 16:00 Temperature 98.3 F Pulse Rate 72 64 Respiratory Rate 18 16 Blood Pressure 149/87 H 146/69 H Pulse Oximetry 94 92 Oxygen Delivery Method Room Air Oxygen Flow Rate 02/13/23 16:00 02/13/23 16:30 02/13/23 16:30 Temperature Pulse Rate 64 59 L Respiratory Rate 21 20 Blood Pressure 157/74 H Pulse Oximetry 92 Oxygen Delivery Method Room Air Oxygen Flow Rate 02/13/23 17:00 02/13/23 17:00 02/13/23 17:30 Temperature Pulse Rate 59 L 59 L Respiratory Rate 10 L 0 L Blood Pressure 165/74 H Pulse Oximetry 92 93 Oxygen Delivery Method Room Air Oxygen Flow Rate 02/13/23 18:00 02/13/23 18:20 02/13/23 18:20 Temperature Pulse Rate 60 62 Respiratory Rate 0 L 21 Blood Pressure 145/69 H Pulse Oximetry 92 94 Oxygen Delivery Method Oxygen Flow Rate 02/13/23 18:30 02/13/23 18:31 02/13/23 18:31 Temperature Pulse Rate 62 63 Respiratory Rate 24 29 H Blood Pressure 165/110 H Pulse Oximetry 94 Oxygen Delivery Method Room Air Oxygen Flow Rate 02/13/23 18:40 02/13/23 18:40 02/13/23 19:00 Temperature Pulse Rate 65 59 L Respiratory Rate 24 20 Blood Pressure 183/89 H Pulse Oximetry 97 92 Oxygen Delivery Method Room Air Room Air Oxygen Flow Rate 02/13/23 19:01 02/13/23 19:01 02/13/23 19:30 Temperature Pulse Rate 61 Respiratory Rate 20 Blood Pressure 155/72 H 146/70 H Pulse Oximetry 91 Oxygen Delivery Method Room Air Oxygen Flow Rate 02/13/23 19:30 02/13/23 19:45 02/13/23 20:03 Temperature Pulse Rate 61 62 Respiratory Rate 21 24 Blood Pressure 146/70 H Pulse Oximetry 92 93 Oxygen Delivery Method Room Air Oxygen Flow Rate 02/13/23 20:05 02/13/23 20:05 02/13/23 20:11 Temperature Pulse Rate 65 61 Respiratory Rate 12 28 H Blood Pressure 189/77 H Pulse Oximetry 95 95 Oxygen Delivery Method Oxygen Flow Rate 02/13/23 20:11 02/13/23 20:30 02/13/23 20:30 Temperature Pulse Rate 60 Respiratory Rate 20 Blood Pressure 157/74 H 162/77 H Pulse Oximetry 94 Oxygen Delivery Method Room Air Oxygen Flow Rate 02/13/23 20:50 02/13/23 20:51 02/13/23 21:00 Temperature Pulse Rate 62 60 Respiratory Rate 16 17 Blood Pressure 159/70 H Pulse Oximetry 88 L 92 Oxygen Delivery Method Room Air Nasal Cannula Oxygen Flow Rate 1 02/13/23 21:00 Temperature Pulse Rate 60 Respiratory Rate 20 Blood Pressure Pulse Oximetry 92 Oxygen Delivery Method Nasal Cannula Oxygen Flow Rate 1 MDM - Nausea/Vomiting/Diarrhea <August Pastor DO - Last Filed: 02/19/23 04:08> Lab Data 02/13/23 15:43 02/14/23 04:59 Labs: Lab Results 02/13/23 02/13/23 02/13/23 Range/Units 15:43 15:43 15:43 WBC 9.6 (4.5-11.0) X10^3/uL RBC 4.02 (4.0-5.2) X10^6/uL Hgb 12.2 (12.0-16.0) g/dL Hct 36.0 (36-46) % MCV 89.4 (80-100) fL MCH 30.2 (26-34) PG MCHC 33.8 (30-36) % RDW 15.3 H (11.6-14.8) % Plt Count 205 (150-400) X10^3/uL Neut % (Auto) 85.2 H (50-75) % Lymph % (Auto) 6.3 L (25-40) % [place] % (Auto) 8.2 (3-14) % Eos % (Auto) 0.0 L (2-4) % Baso % (Auto) 0.3 (0-2) % Neut # (Auto) 8200 H (4650-7311) /uL Lymph # (Auto) 600 L (6564-0377) /uL [place] # (Auto) 800 (0-900) /uL Eos # (Auto) 0 (0-450) /uL Baso # (Auto) 0 (0-100) /uL D-Dimer (<500) ng/ml Sodium 128 L (137-145) mmol/L Potassium 3.4 (3.4-5.1) mmol/L Chloride 92 L (98-107) mmol/L Carbon Dioxide 31 (22-32) mmol/L BUN 25 H (7-17) mg/dL Creatinine 0.98 (0.52-1.04) mg/dL Estimated GFR 59 L (>60) mL/min BUN/Creatinine Ratio 25.5 H (6-22) Glucose 139 H (80-110) mg/dL Calcium 9.0 (8.4-10.2) mg/dL Total Bilirubin 0.6 (0.2-1.3) mg/dL AST 38 H (14-36) IU/L ALT 110 H (<35) IU/L Alkaline Phosphatase 77 (38-126) U/L Total Creatine Kinase 53 (30-135) U/L CK-MB (CK-2) TNP CK-MB (CK-2) Rel Index TNP Troponin I 0.037 H (0.01-0.034) ng/mL Total Protein 6.3 (6.3-8.2) g/dL Albumin 3.6 (3.5-5.0) g/dL Globulin 2.7 (1.7-4.1) g/dL Albumin/Globulin Ratio 1.3 (1.0-2.8) Procalcitonin 0.08 (<0.5) ng/mL 02/13/23 02/13/23 Range/Units 15:43 20:15 WBC (4.5-11.0) X10^3/uL RBC (4.0-5.2) X10^6/uL Hgb (12.0-16.0) g/dL Hct (36-46) % MCV (80-100) fL MCH (26-34) PG MCHC (30-36) % RDW (11.6-14.8) % Plt Count (150-400) X10^3/uL Neut % (Auto) (50-75) % Lymph % (Auto) (25-40) % [place] % (Auto) (3-14) % Eos % (Auto) (2-4) % Baso % (Auto) (0-2) % Neut # (Auto) (4260-4703) /uL Lymph # (Auto) (2050-3985) /uL [place] # (Auto) (0-900) /uL Eos # (Auto) (0-450) /uL Baso # (Auto) (0-100) /uL D-Dimer 1395 H (<500) ng/ml Sodium (137-145) mmol/L Potassium (3.4-5.1) mmol/L Chloride (98-107) mmol/L Carbon Dioxide (22-32) mmol/L BUN (7-17) mg/dL Creatinine (0.52-1.04) mg/dL Estimated GFR (>60) mL/min BUN/Creatinine Ratio (6-22) Glucose (80-110) mg/dL Calcium (8.4-10.2) mg/dL Total Bilirubin (0.2-1.3) mg/dL AST (14-36) IU/L ALT (<35) IU/L Alkaline Phosphatase (38-126) U/L Total Creatine Kinase 38 (30-135) U/L CK-MB (CK-2) TNP CK-MB (CK-2) Rel Index TNP Troponin I 0.028 (0.01-0.034) ng/mL Total Protein (6.3-8.2) g/dL Albumin (3.5-5.0) g/dL Globulin (1.7-4.1) g/dL Albumin/Globulin Ratio (1.0-2.8) Procalcitonin (<0.5) ng/mL Urine Dip Bedside Urine Glucose Negative Bedside Urine Bilirubin - Negative Bedside Urine Ketone - Negative Urine Specific [place] 1.010 Bedside Urine Occult Blood - Negative Bedside Urine pH 6.5 Bedside Urine Protein - Negative Bedside Urine Urobilinogen - Negative Bedside Urine Nitrite - Negative Bedside Urine Leukocytes - Negative Esterase <Brenton Palma DO - Last Filed: 02/13/23 21:42> Lab Data Labs: Lab Results 02/13/23 02/13/23 02/13/23 Range/Units 15:43 15:43 15:43 WBC 9.6 (4.5-11.0) X10^3/uL RBC 4.02 (4.0-5.2) X10^6/uL Hgb 12.2 (12.0-16.0) g/dL Hct 36.0 (36-46) % MCV 89.4 (80-100) fL MCH 30.2 (26-34) PG MCHC 33.8 (30-36) % RDW 15.3 H (11.6-14.8) % Plt Count 205 (150-400) X10^3/uL Neut % (Auto) 85.2 H (50-75) % Lymph % (Auto) 6.3 L (25-40) % [place] % (Auto) 8.2 (3-14) % Eos % (Auto) 0.0 L (2-4) % Baso % (Auto) 0.3 (0-2) % Neut # (Auto) 8200 H (9777-6262) /uL Lymph # (Auto) 600 L (2071-8924) /uL [place] # (Auto) 800 (0-900) /uL Eos # (Auto) 0 (0-450) /uL Baso # (Auto) 0 (0-100) /uL D-Dimer (<500) ng/ml Sodium 128 L (137-145) mmol/L Potassium 3.4 (3.4-5.1) mmol/L Chloride 92 L (98-107) mmol/L Carbon Dioxide 31 (22-32) mmol/L BUN 25 H (7-17) mg/dL Creatinine 0.98 (0.52-1.04) mg/dL Estimated GFR 59 L (>60) mL/min BUN/Creatinine Ratio 25.5 H (6-22) Glucose 139 H (80-110) mg/dL Calcium 9.0 (8.4-10.2) mg/dL Total Bilirubin 0.6 (0.2-1.3) mg/dL AST 38 H (14-36) IU/L ALT 110 H (<35) IU/L Alkaline Phosphatase 77 (38-126) U/L Total Creatine Kinase 53 (30-135) U/L CK-MB (CK-2) TNP CK-MB (CK-2) Rel Index TNP Troponin I 0.037 H (0.01-0.034) ng/mL Total Protein 6.3 (6.3-8.2) g/dL Albumin 3.6 (3.5-5.0) g/dL Globulin 2.7 (1.7-4.1) g/dL Albumin/Globulin Ratio 1.3 (1.0-2.8) Procalcitonin 0.08 (<0.5) ng/mL 02/13/23 02/13/23 Range/Units 15:43 20:15 WBC (4.5-11.0) X10^3/uL RBC (4.0-5.2) X10^6/uL Hgb (12.0-16.0) g/dL Hct (36-46) % MCV (80-100) fL MCH (26-34) PG MCHC (30-36) % RDW (11.6-14.8) % Plt Count (150-400) X10^3/uL Neut % (Auto) (50-75) % Lymph % (Auto) (25-40) % [place] % (Auto) (3-14) % Eos % (Auto) (2-4) % Baso % (Auto) (0-2) % Neut # (Auto) (4132-3295) /uL Lymph # (Auto) (0961-8559) /uL [place] # (Auto) (0-900) /uL Eos # (Auto) (0-450) /uL Baso # (Auto) (0-100) /uL D-Dimer 1395 H (<500) ng/ml Sodium (137-145) mmol/L Potassium (3.4-5.1) mmol/L Chloride (98-107) mmol/L Carbon Dioxide (22-32) mmol/L BUN (7-17) mg/dL Creatinine (0.52-1.04) mg/dL Estimated GFR (>60) mL/min BUN/Creatinine Ratio (6-22) Glucose (80-110) mg/dL Calcium (8.4-10.2) mg/dL Total Bilirubin (0.2-1.3) mg/dL AST (14-36) IU/L ALT (<35) IU/L Alkaline Phosphatase (38-126) U/L Total Creatine Kinase 38 (30-135) U/L CK-MB (CK-2) TNP CK-MB (CK-2) Rel Index TNP Troponin I 0.028 (0.01-0.034) ng/mL Total Protein (6.3-8.2) g/dL Albumin (3.5-5.0) g/dL Globulin (1.7-4.1) g/dL Albumin/Globulin Ratio (1.0-2.8) Procalcitonin (<0.5) ng/mL Urine Dip Bedside Urine Glucose Negative Bedside Urine Bilirubin - Negative Bedside Urine Ketone - Negative Urine Specific [place] 1.010 Bedside Urine Occult Blood - Negative Bedside Urine pH 6.5 Bedside Urine Protein - Negative Bedside Urine Urobilinogen - Negative Bedside Urine Nitrite - Negative Bedside Urine Leukocytes - Negative Esterase MDM Narrative Medical decision making narrative: Dr Palma: Repeat troponin negative. Discussed case with hospitalist. We will admit for further evaluation and treatment. Discharge Plan Departure Patient Disposition: Admitted as Observation Clinical Impression: Acute hyponatremia, Acute dehydration, Atypical pneumonia Admit Date/Time: 02/13/23 21:46 Admit Provider: Fam Etienne ED Sign-out <August Pastor DO - Last Filed: 02/19/23 04:08> Cosign ED Attending Cosignature Attestation: I was immediately available in the department for consultation. Documentation has been reviewed. I agree with assessment and plan.
--- NOTE | 2023-02-13 15:43 | DI.RAD.S_ITS ---
PROCEDURE: XR CHEST 1V INDICATIONS: chest pain TECHNIQUE: One view of the chest was acquired. COMPARISON: [facility], CR, XR CHEST 1V, 09/04/2022, 13:44. FINDINGS: Surgical changes and devices: None. Lungs and pleura: Lungs are clear. No pleural effusions or pneumothorax. Mediastinum: Mildly tortuous thoracic aorta is seen. Heart size is enlarged. Bones and chest wall: No suspicious bony lesions. Overlying soft tissues appear unremarkable. IMPRESSION: No acute cardiopulmonary pathology. Dictated by: Albert Dunaway M.D. on 02/13/2023 at 16:39 Approved by: Albert Dunaway M.D. on 02/13/2023 at 16:40
[2023-02-13] MEDS: diphenhydrAMINE 50 MG/ML VIAL 25 MG IV (15:55)
[2023-02-13] MEDS: methylPREDNISolone 125 MG/2 ML VIAL IV (15:58)
[2023-02-13] MEDS: FAMOTIDINE 20 MG/2 ML VIAL IV (15:59)
[2023-02-13 16:03] LABS: Add Manual Diff / Slide Review NO; Basophils Absolute Auto 0 /uL (0-100); Basophils Percent Auto 0.3 % (0-2); Eosinophils Absolute Auto 0 /uL (0-450); Hemoglobin 12.2 g/dL (12.0-16.0); Lymphocytes Absolute Auto 600 /uL (1100-4500); Lymphocytes Percent Auto 6.3 % (25-40); Mean Corpuscular HGB Conc 33.8 % (30-36); Mean Corpuscular Hemoglobin 30.2 PG (26-34); Mean Corpuscular Volume 89.4 fL (80-100); Monocytes Absolute Auto 800 /uL (0-900); Monocytes Percent Auto 8.2 % (3-14); Neutrophils Absolute Auto 8200 /uL (1500-7000); Neutrophils Percent Auto 85.2 % (50-75); Platelet Count 205 X10^3/uL (150-400); Red Blood Cell Count 4.02 X10^6/uL (4.0-5.2); Red Cell Distribution Width 15.3 % (11.6-14.8); White Blood Cell Count 9.6 X10^3/uL (4.5-11.0)
[2023-02-13 16:06] LABS: D Dimer 1395 ng/ml (<500)
--- NOTE | 2023-02-13 16:10 | PC.NURSE ---
patient states she last took oxycodone with tylenol around 2100 for her pain. She states it may have made her nausea worse since she hasnt been eating.
[2023-02-13 16:13] LABS: Creatine Kinase 53 U/L (30-135)
[2023-02-13 16:14] LABS: Alanine Aminotransferase 110 IU/L (<35); Albumin 3.6 g/dL (3.5-5.0); Albumin Globulin Ratio 1.3 (1.0-2.8); Alkaline Phosphatase 77 U/L (38-126); Aspartate Aminotransferase 38 IU/L (14-36); BUN Creatinine Ratio 25.5 (6-22); Bilirubin Total 0.6 mg/dL (0.2-1.3); Blood Urea Nitrogen 25 mg/dL (7-17); Carbon Dioxide 31 mmol/L (22-32); Chloride 92 mmol/L (98-107); Estimated Glomerular Filt Rate 59 mL/min (>60); Globulin 2.7 g/dL (1.7-4.1); Glucose 139 mg/dL (80-110); HEMOLYSIS < 15 (0-50); Potassium 3.4 mmol/L (3.4-5.1); Sodium 128 mmol/L (137-145); Total Protein 6.3 g/dL (6.3-8.2)
[2023-02-13 16:25] LABS: Troponin I 0.037 ng/mL (0.01-0.034)
[2023-02-13 16:29] LABS: Procalcitonin 0.08 ng/mL (<0.5)
--- NOTE | 2023-02-13 17:01 | PC.NURSE ---
Patient has an allergy to contrast dye, provider is aware and patient was premedicated to receive contrast.
--- NOTE | 2023-02-13 17:01 | DI.CT.S_ITS ---
PROCEDURE: CT ANGIO CHEST PE PROTOCOL INDICATIONS: chest pain, tachycardia, recent hosp., critical dimer TECHNIQUE: After the administration of intravenous contrast, 2 mm thick sections acquired from the pulmonary apices to the posterior costophrenic angles. 3-dimensional maximum intensity projection (MIP) coronal and sagittal reformats were then acquired through the thorax. For radiation dose reduction, the following was used: automated exposure control, adjustment of mA and/or kV according to patient size. , with [facility], CT, CT ABDOMEN ADRENAL PROTOCOL, 10/31/2022, 13:21. tcontrast COMPARISON: FINDINGS: Image quality: Excellent. Pulmonary arteries: Pulmonary arteries are normal in size, and demonstrate no intraluminal filling defects to suggest central pulmonary embolism. Lungs and pleura: Mild diffuse ground-glass pulmonary opacity. No pleural effusions or pneumothorax. Central and peripheral airways are patent. Mediastinum: Heart size is normal, without pericardial effusion. Mild calcification of the coronary vasculature. No mediastinal or hilar adenopathy. Calcified subcarinal and right hilar lymph nodes. Thoracic aorta is normal in caliber and enhancement. Esophagus is normal in caliber, without hiatal hernia. Bones and chest wall: No suspicious bony lesions. Ribs and thoracic spine appear intact throughout. Thyroid gland demonstrates bilateral low-density nodules. No axillary or supraclavicular adenopathy. Abdomen: Visualized portions of the upper abdomen demonstrate no change in the previously seen left adrenal nodule. High density foci within the gallbladder lumen. IMPRESSION: 1. No pulmonary embolus. 2. Coronary artery disease. 3. Remote granulomatous disease. 4. No change in left adrenal nodule. 5. Cholelithiasis. 6. Mild atypical pneumonia. Dictated by: Shana Carl M.D. on 02/13/2023 at 17:35 Approved by: Shana Carl M.D. on 02/13/2023 at 17:38
[2023-02-13] MEDS: SODIUM CHLORIDE 0.9% 1,000 ML 1000 ML IV (18:14)
--- NOTE | 2023-02-13 18:44 | PC.NURSE ---
Patient ambulated to the bathroom and back to bed with no complaints, states she doesnt feel worse after walking.
[2023-02-13] MEDS: DOXYCYCLINE 100 MG in SODIUM CHLORIDE 0.9% 100 ML IV (18:56)
[2023-02-13] MEDS: LOSARTAN 50 MG TABLET PO (19:45)
[2023-02-13] MEDS: PANTOPRAZOLE 40 MG VIAL IV (19:46)
[2023-02-13] MEDS: FLECAINIDE 100 MG TABLET PO (19:46)
[2023-02-13] MEDS: ONDANSETRON 4 MG/2 ML INJ IV (19:47)
[2023-02-13 20:39] LABS: Creatine Kinase 38 U/L (30-135)
[2023-02-13 20:51] LABS: Troponin I 0.028 ng/mL (0.01-0.034)
--- NOTE | 2023-02-13 21:17 | PC.NURSE ---
Addendum entered by [place] R.N. 02/13/23 21:19: @ 1755 patient denied swelling, itching, tongue swelling. Pt pre medicated - See MAR. Original Note: Patient denies having any itching, swelling of the tongue or mouth after receiving imaging contrast. Pt had been pre medicated. See MAR.
--- NOTE | 2023-02-13 23:08 | PM.HP.1 ---
History of Present Illness History of Present Illness Date Patient Seen: 02/13/23 Time Patient Seen: 21:00 Chief complaint: symptoms after recent crainotomy Narrative: Ms. Kim is a 77W with PMH paroxysmal afib, HTN, recent right suboccipital craniotomy who presents with headache, nausea, vomiting, and right sided chest pain. She was discharged after recent craniotomy for meningioma on 02/11. Approach was right suboccipital posterior to the right ear. Since then her pain had been largely controlled. She had no pain at incision. She had no fluid or fluctuance at incision, no fluid from ears. She did have some clear rhinorrhea after surgery, but his resolved yesterday. She states she discussed this with her neurosurgery team. Yesterday she began feeling poorly. She had bilateral frontal headache. She had nausea and vomiting. She had right sided chest pain. No fevers were measured. No cough or shortness of breath. No abdominal pain. When I saw her she feels largely improved overall except she feels very fatigue and run down. In the ED workup was done, vitals notable for afebrile, heart rate 70s, blood pressure 140s/80s. Sats in the 80s on room air. Labs reviewed and notable for WBC 9.6, hgb 12.2, plts 205. Na 128, BUN 25, creatinine 0.98. Trop 0.037->0.028. Procal 0.08. AST/ALT 38/110. D-dimer 1395. CT head showed no acute process. Chest xray reviewed by me and showed no acute process. CTA chest showed mild bilateral infiltrates, no PE, and cholelithiasis. She was ordered for antibiotics and fluids and admitted for further treatment. [facility] Medical History Adrenal gland anomaly Anemia Atrial fibrillation (~2018) Carpal tunnel syndrome (~2013) Chicken pox (~1949) Chronic back pain (~2019) Chronic kidney disease COPD (chronic obstructive pulmonary disease) Degenerative lumbar spinal stenosis Depression (~1989) Encounter for pre-operative cardiovascular clearance History of tobacco use Hypertension Hypothyroidism Influenza Measles (~1948) Medicare annual wellness visit, subsequent Meningioma Mumps (~1949) Osteoarthritis (~1997) Overactive bladder Peripheral neuropathy Pre-diabetes Shoulder pain (~2019) Urge incontinence Urinary incontinence (~2019) Surgical History Anesthesia History of arthroplasty History of bilateral knee replacement (~1998) History of cardiac radiofrequency ablation History of hysterectomy (~1991) Hx of appendectomy Hx of breast biopsy Hx of lithotripsy Hx of tubal ligation Family History Father Cancer Mother History of heart disease UTI (urinary tract infection) Brother History of heart disease Diabetes mellitus Gout Grandfather History of heart disease Grandfather Cancer Grandmother Cancer Social History marital status: number of children: 2 household members: spouse Smoking Status: Former smoker Tobacco: How many years used: 25 alcohol intake: current during the past year weight has: remained stable caffeine: Yes Type(s) of exercise: walking frequency: 1-2 times per week duration: 45-60 minutes/day Meds Home Medications and Allergies Home Medications Medication Instructions Recorded Confirmed Type chlorthalidone 25 mg tablet 25 mg PO QAM 04/29/21 02/13/23 History dabigatran etexilate 150 mg 150 mg PO BID 04/29/21 02/13/23 History capsule (Pradaxa) flecainide 50 mg tablet 100 mg PO BID 04/29/21 02/13/23 History venlafaxine 150 mg 150 mg PO DAILY #90 caps 04/10/22 02/13/23 Rx capsule,extended release 24 hr (Effexor XR) diltiazem HCl 360 mg capsule,24 360 mg PO QPM 05/08/22 02/13/23 History hr,extended release solifenacin 10 mg tablet 10 mg PO QPM 09/04/22 02/13/23 History meloxicam 15 mg tablet 15 mg PO DAILY #30 tabs 10/23/22 02/13/23 Rx vibegron 75 mg tablet (Gemtesa) 75 mg PO DAILY #30 tabs 01/22/23 02/13/23 Rx lorazepam 0.5 mg tablet 0.5 mg PO BEDTIME PRN insomnia #30 02/06/23 02/13/23 Rx tabs levothyroxine 50 mcg tablet 50 mcg PO DAILY 02/13/23 02/13/23 History Allergies Allergy/AdvReac Type Severity Reaction Status Date / Time azithromycin [AZITHROMYCIN] Allergy Unknown Verified 01/11/23 10:14 codeine Allergy Unknown Verified 01/11/23 10:14 iodine [IODINE] Allergy Unknown Verified 01/11/23 10:14 latex Allergy Unknown Hives Verified 02/13/23 15:46 Review of Systems Review of Systems Narrative: 14 systems reviewed and negative aside from what is noted in HPI Exam Vital Signs (past 8 hours): - 02/13/23 15:14 02/13/23 15:54 02/13/23 16:00 Temperature 98.3 F Pulse Rate 72 64 Respiratory Rate 18 16 Blood Pressure 149/87 H 146/69 H Pulse Oximetry 94 92 Oxygen Delivery Method Room Air Oxygen Flow Rate 02/13/23 16:00 02/13/23 16:30 02/13/23 16:30 Temperature Pulse Rate 64 59 L Respiratory Rate 21 20 Blood Pressure 157/74 H Pulse Oximetry 92 Oxygen Delivery Method Room Air Oxygen Flow Rate 02/13/23 17:00 02/13/23 17:00 02/13/23 17:30 Temperature Pulse Rate 59 L 59 L Respiratory Rate 10 L 0 L Blood Pressure 165/74 H Pulse Oximetry 92 93 Oxygen Delivery Method Room Air Oxygen Flow Rate 02/13/23 18:00 02/13/23 18:20 02/13/23 18:20 Temperature Pulse Rate 60 62 Respiratory Rate 0 L 21 Blood Pressure 145/69 H Pulse Oximetry 92 94 Oxygen Delivery Method Oxygen Flow Rate 02/13/23 18:30 02/13/23 18:31 02/13/23 18:31 Temperature Pulse Rate 62 63 Respiratory Rate 24 29 H Blood Pressure 165/110 H Pulse Oximetry 94 Oxygen Delivery Method Room Air Oxygen Flow Rate 02/13/23 18:40 02/13/23 18:40 02/13/23 19:00 Temperature Pulse Rate 65 59 L Respiratory Rate 24 20 Blood Pressure 183/89 H Pulse Oximetry 97 92 Oxygen Delivery Method Room Air Room Air Oxygen Flow Rate 02/13/23 19:01 02/13/23 19:01 02/13/23 19:30 Temperature Pulse Rate 61 Respiratory Rate 20 Blood Pressure 155/72 H 146/70 H Pulse Oximetry 91 Oxygen Delivery Method Room Air Oxygen Flow Rate 02/13/23 19:30 02/13/23 19:45 02/13/23 20:03 Temperature Pulse Rate 61 62 Respiratory Rate 21 24 Blood Pressure 146/70 H Pulse Oximetry 92 93 Oxygen Delivery Method Room Air Oxygen Flow Rate 02/13/23 20:05 02/13/23 20:05 02/13/23 20:11 Temperature Pulse Rate 65 61 Respiratory Rate 12 28 H Blood Pressure 189/77 H Pulse Oximetry 95 95 Oxygen Delivery Method Oxygen Flow Rate 02/13/23 20:11 02/13/23 20:30 02/13/23 20:30 Temperature Pulse Rate 60 Respiratory Rate 20 Blood Pressure 157/74 H 162/77 H Pulse Oximetry 94 Oxygen Delivery Method Room Air Oxygen Flow Rate 02/13/23 20:50 02/13/23 20:51 02/13/23 21:00 Temperature Pulse Rate 62 60 Respiratory Rate 16 17 Blood Pressure 159/70 H Pulse Oximetry 88 L 92 Oxygen Delivery Method Room Air Nasal Cannula Oxygen Flow Rate 1 02/13/23 21:00 02/13/23 21:30 02/13/23 21:30 Temperature Pulse Rate 60 62 Respiratory Rate 20 18 Blood Pressure 152/79 H Pulse Oximetry 92 95 Oxygen Delivery Method Nasal Cannula Nasal Cannula Oxygen Flow Rate 1 1 02/13/23 22:00 02/13/23 22:00 02/13/23 22:30 Temperature Pulse Rate 58 L Respiratory Rate 17 Blood Pressure 154/72 H 160/74 H Pulse Oximetry 93 Oxygen Delivery Method Room Air Oxygen Flow Rate 02/13/23 22:30 Temperature Pulse Rate 58 L Respiratory Rate 18 Blood Pressure Pulse Oximetry 93 Oxygen Delivery Method Nasal Cannula Oxygen Flow Rate 1 Oxygen Delivery Method Nasal Cannula Oxygen Flow Rate 1 Narrative Exam Narrative: GEN: no acute distress HEENT: incision posterior to right ear with sutures clean, dry, intact, mild erythema and ecchymosis, no fluctuance, no draining fluid, no tenderness or warmth on palpation, ear with no drainage of fluid, normal chin to chest motion, dry mucous membranes NECK: trachea midline, no JVD PULM: clear bilaterally CV: regular rate and rhythm, no murmrs ABD: soft, nontender, nondistended no organomegaly EXT: warm and well perfused with no edema NEURO: awake, alert, oriented, no focal deficits Objective Labs 02/13/23 15:43 02/13/23 15:43 Labs: Laboratory Results - last 24 hr 02/13/23 02/13/23 02/13/23 15:43 15:43 15:43 WBC 9.6 RBC 4.02 Hgb 12.2 Hct 36.0 MCV 89.4 MCH 30.2 MCHC 33.8 RDW 15.3 H Plt Count 205 Neut % (Auto) 85.2 H Lymph % (Auto) 6.3 L [place] % (Auto) 8.2 Eos % (Auto) 0.0 L Baso % (Auto) 0.3 Neut # (Auto) 8200 H Lymph # (Auto) 600 L [place] # (Auto) 800 Eos # (Auto) 0 Baso # (Auto) 0 D-Dimer Sodium 128 L Potassium 3.4 Chloride 92 L Carbon Dioxide 31 BUN 25 H Creatinine 0.98 Estimated GFR 59 L BUN/Creatinine Ratio 25.5 H Glucose 139 H Calcium 9.0 Total Bilirubin 0.6 AST 38 H ALT 110 H Alkaline Phosphatase 77 Total Creatine Kinase 53 CK-MB (CK-2) TNP CK-MB (CK-2) Rel Index TNP Troponin I 0.037 H Total Protein 6.3 Albumin 3.6 Globulin 2.7 Albumin/Globulin Ratio 1.3 Procalcitonin 0.08 02/13/23 02/13/23 15:43 20:15 WBC RBC Hgb Hct MCV MCH MCHC RDW Plt Count Neut % (Auto) Lymph % (Auto) [place] % (Auto) Eos % (Auto) Baso % (Auto) Neut # (Auto) Lymph # (Auto) [place] # (Auto) Eos # (Auto) Baso # (Auto) D-Dimer 1395 H Sodium Potassium Chloride Carbon Dioxide BUN Creatinine Estimated GFR BUN/Creatinine Ratio Glucose Calcium Total Bilirubin AST ALT Alkaline Phosphatase Total Creatine Kinase 38 CK-MB (CK-2) TNP CK-MB (CK-2) Rel Index TNP Troponin I 0.028 Total Protein Albumin Globulin Albumin/Globulin Ratio Procalcitonin Assessment & Plan Assessment & Plan narrative: 1. Possible pneumonia and acute hypoxemic respiratory failure -per notes patient has history of COPD, but she denies this and is on no nebs/inhalers -CT shows possible mild pneumonia -sats in the 80s on room air -CTA negative for PE -ordered ceftriaxone/doxycycline for pneumonia 2. Hyponatremia, probable hypovolemic -likely secondary to nausea and vomiting and continuining chlorthalidone -given empiric fluids in the ED -repeat sodium in the AM -nausea and vomiting possibly secondary to infection and treat as above -CT showed gallstones, but did not show evidence of cholecystitis, no abdominal pain to palpation on admission 3. Headache -resolved -normal wbc and no fevers, no confusion or neck pain, so doubt meningitis/encephalitis -no fluid from nares, ear, or incision, so doubt csf leak -possibly secondary to post-craniotomy -CT head with no acute process 4. Atrial fibrillation -continue fleicanide, diltiazem -ensure dabigatran can be restarted 5. Hypertension -hold chlorthalidone 6. Hypothyroidism -continue synthroid I have discussed plan and obtained history from patient. I have discussed plan of care with ED physician and bedside nurse. I have reviewed labs, imaging, previous medical records. CODE: Full Proxy: Paul Kim, Quality VTE Deep Vein Thrombosis/Pulmonary Embolism Present on Admission: No MIPS - Meds 'Current medications' to include all prescriptions, [id number] products, herbals, cannabis/cannabidiol products, and vitamin/mineral/dietary (nutritional) supplements. I have utilized all available resources to obtain, update, or review the patient?s current medications. [If Yes, STOP here]: Yes
--- NOTE | 2023-02-13 23:14 | PC.NURSE ---
I took the patient up to rm 217 and assisted her into the bathroom. Patient was able to walk back to bed. Acute Care HVAC ENGINEERING TECHNICIAN at bedside. I updated the nurse of patients status, call light in reach and 3 bedrails up. Bed low and locked.
[2023-02-14] MEDS: cefTRIAXone 1,000 MG in SODIUM CHLORIDE 0.9% 100 ML 200 MG IV (00:03)
[2023-02-14 04:56] VITALS: O2SAT 95
[2023-02-14 05:44] VITALS: BP 153/64; PULSE 57; RESP 17; TEMP 36.3; O2SAT 95
[2023-02-14 05:45] LABS: Alanine Aminotransferase 91 IU/L (<35); Albumin 3.3 g/dL (3.5-5.0); Albumin Globulin Ratio 1.2 (1.0-2.8); Alkaline Phosphatase 65 U/L (38-126); Aspartate Aminotransferase 28 IU/L (14-36); Bilirubin Total 0.4 mg/dL (0.2-1.3); Blood Urea Nitrogen 27 mg/dL (7-17); Calcium 8.7 mg/dL (8.4-10.2); Carbon Dioxide 27 mmol/L (22-32); Chloride 100 mmol/L (98-107); Estimated Glomerular Filt Rate > 60 mL/min (>60); Globulin 2.7 g/dL (1.7-4.1); Glucose 121 mg/dL (80-110); HEMOLYSIS 38 (0-50); Sodium 133 mmol/L (137-145)
[2023-02-14] MEDS: LEVOTHYROXINE 50 MCG TABLET PO (08:19)
[2023-02-14] MEDS: DOXYCYCLINE 100 MG in SODIUM CHLORIDE 0.9% 100 ML IV (08:19)
[2023-02-14] MEDS: VENLAFAXINE ER 75 MG CAP 150 MG PO (08:19)
[2023-02-14] MEDS: FLECAINIDE 100 MG TABLET PO (08:19)
--- NOTE | 2023-02-14 09:35 | PC.NURSE ---
discharge instructions and paper work given to patient. all questions were answered. IV abx still running.
--- NOTE | 2023-02-14 10:28 | PC.NURSE ---
Day shift: Patient discharged home at 1030. Discharge information gone over with patient by MARIO Burns. All questions answered and pt stated understanding. PIV d/c'ed. Pt escorted to emergency entrance via wheelchair by devin Lopez where her picked her up.
--- NOTE | 2023-02-14 11:38 | CM.DANOTE ---
DCP: Case receive, EMR reviewed and met with patient. Introduced self and role. Was able to obtain information regarding patient's baseline activity status prior to hospitalization. DCP assessment completed with information currently available. Patient is a 77 year old female who admitted yesterday evening to the care of the hospitalist team. PCP: Dr. Rangel. Payer: confirmed: [facility]. Patient came to the hospital via private vehicle secondary to having dizziness, persistent vomiting. Notes indicate that patient had recent craniotomy last Saturday at [facility], and was discharged Saturday. Patient was also complaining of severe headaches. Patient was diagnosed with possible pneumonia, some hyponatremia. Met with patient in her room. She is alert, sitting up in bed. Stated, feeling better. Confirmed that she had her recent surgery, was feeling better when she first went home, then, headaches started, took Oxycodone on an empty stomach, may have caused it. She is independent at her baseline, and resides with spouse, Luis, here in [place]. P: Patient is being discharged home today. Olya Rueda RN/Fire Control Assistant Discharge Planning/Care Management CM Discharge Assessment Start: 02/14/23 11:36 Freq: Status: Active Protocol: Document 02/14/23 11:37 (Rec: 02/14/23 11:38 [id number]) Discharge Planning Assessment Assigned Hvac Refrigeration Technician Olya Rueda RN/Fire Control Assistant Advance Directives? Yes Advance Directives on File No History Provided By Patient,Medical Record Prior Living Arrangements House Household Members spouse Type of transporation used prior to Drives own vehicle admit Independent with ADL's Yes Is patient alert and oriented? Yes Barriers to Discharge No Discharge Plan Home Transportation Arrangement Spouse Referrals Initiated None needed Whiteboard Updated in Patient Room with Yes name and ext. # of Hvac Refrigeration Technician Review Status In Process Next Review Type Continued Stay Review
--- NOTE | 2023-02-14 11:56 | P.DS_ITS ---
History of Present Illness History of Present Illness Chief complaint: symptoms after recent crainotomy Narrative: 77W with PMH paroxysmal afib, HTN, recent right suboccipital craniotomy who presents with headache, nausea, vomiting, and right sided chest pain. She was discharged after recent craniotomy for meningioma on 02/11. Approach was right suboccipital posterior to the right ear. Since then her pain had been largely controlled. She had no pain at incision. She had no fluid or fluctuance at incision, no fluid from ears. She did have some clear rhinorrhea after surgery, but his resolved yesterday. She states she discussed this with her neurosurgery team. Yesterday she began feeling poorly. She had bilateral frontal headache. She had nausea and vomiting. She had right sided chest pain. No fevers were measured. No cough or shortness of breath. No abdominal pain. When I saw her she feels largely improved overall except she feels very fatigue and run down. In the ED workup was done, vitals notable for afebrile, heart rate 70s, blood pressure 140s/80s. Sats in the 80s on room air. Labs reviewed and notable for WBC 9.6, hgb 12.2, plts 205. Na 128, BUN 25, creatinine 0.98. Trop 0.037->0.028. Procal 0.08. AST/ALT 38/110. D-dimer 1395. CT head showed no acute process. Chest xray reviewed by me and showed no acute process. CTA chest showed mild bilateral infiltrates, no PE, and cholelithiasis. She was ordered for antibiotics and fluids and admitted for further treatment. Discharge Providers Provider Date of admission: 02/13/23 21:46 Discharge Date: 02/14/23 Primary care physician: David Rangel DO Discharge provider: Carlos Goode MD Summary Hospital Course Discharge Diagnosis: 1. Possible bilateral atypical pneumonia 2. Acute hypoxic respiratory failure 3. Acute hyponatremia likely hypovolemic related 4. Headaches status post recent craniotomy 5. Permanent atrial fibrillation 6. Essential hypertension Hospital Course: Started on antibiotics with Rocephin and doxycycline as well as provided IV hydration. Presenting symptoms resolved overnight. Her O2 sats this a.m. are normal on room air. Her serum sodium corrected to 133 as well. She feels ready to discharge home. Status at Discharge Cognitive/behavioral status at discharge: oriented Functional status at discharge: independent ambulation Overall status at discharge: patient is progressing back to baseline Time Spent with Patient Time spent: Less than 30 minutes Exam Vital Signs (past 8 hours): - 02/14/23 04:56 02/14/23 05:44 Temperature 97.4 F L Pulse Rate 57 L Respiratory Rate 17 Blood Pressure 153/64 H Pulse Oximetry 95 95 Oxygen Delivery Method Nasal Cannula Oxygen Flow Rate 1 0 Oxygen Delivery Method Nasal Cannula Oxygen Flow Rate 0 Narrative Exam Narrative: General: Alert pleasant female in no acute distress Lungs: Clear to auscultation line Extremities: No edema Objective Labs 02/13/23 15:43 02/14/23 04:59 Labs: Laboratory Results - last 24 hr 02/13/23 02/13/23 02/13/23 15:43 15:43 15:43 WBC 9.6 RBC 4.02 Hgb 12.2 Hct 36.0 MCV 89.4 MCH 30.2 MCHC 33.8 RDW 15.3 H Plt Count 205 Neut % (Auto) 85.2 H Lymph % (Auto) 6.3 L [place] % (Auto) 8.2 Eos % (Auto) 0.0 L Baso % (Auto) 0.3 Neut # (Auto) 8200 H Lymph # (Auto) 600 L [place] # (Auto) 800 Eos # (Auto) 0 Baso # (Auto) 0 D-Dimer Sodium 128 L Potassium 3.4 Chloride 92 L Carbon Dioxide 31 BUN 25 H Creatinine 0.98 Estimated GFR 59 L BUN/Creatinine Ratio 25.5 H Glucose 139 H Calcium 9.0 Total Bilirubin 0.6 AST 38 H ALT 110 H Alkaline Phosphatase 77 Total Creatine Kinase 53 CK-MB (CK-2) TNP CK-MB (CK-2) Rel Index TNP Troponin I 0.037 H Total Protein 6.3 Albumin 3.6 Globulin 2.7 Albumin/Globulin Ratio 1.3 Procalcitonin 0.08 02/13/23 02/13/23 02/14/23 15:43 20:15 04:59 WBC RBC Hgb Hct MCV MCH MCHC RDW Plt Count Neut % (Auto) Lymph % (Auto) [place] % (Auto) Eos % (Auto) Baso % (Auto) Neut # (Auto) Lymph # (Auto) [place] # (Auto) Eos # (Auto) Baso # (Auto) D-Dimer 1395 H Sodium 133 L Potassium 4.0 Chloride 100 Carbon Dioxide 27 BUN 27 H Creatinine 0.93 Estimated GFR > 60 BUN/Creatinine Ratio 29.0 H Glucose 121 H Calcium 8.7 Total Bilirubin 0.4 AST 28 ALT 91 H Alkaline Phosphatase 65 Total Creatine Kinase 38 CK-MB (CK-2) TNP CK-MB (CK-2) Rel Index TNP Troponin I 0.028 Total Protein 6.0 L Albumin 3.3 L Globulin 2.7 Albumin/Globulin Ratio 1.2 Procalcitonin [facility] Medical History Adrenal gland anomaly Anemia Atrial fibrillation (~2018) Carpal tunnel syndrome (~2013) Chicken pox (~1949) Chronic back pain (~2019) Chronic kidney disease COPD (chronic obstructive pulmonary disease) Degenerative lumbar spinal stenosis Depression (~1989) Encounter for pre-operative cardiovascular clearance History of tobacco use Hypertension Hypothyroidism Influenza Measles (~1948) Medicare annual wellness visit, subsequent Meningioma Mumps (~1949) Osteoarthritis (~1997) Overactive bladder Peripheral neuropathy Pre-diabetes Shoulder pain (~2019) Urge incontinence Urinary incontinence (~2019) Surgical History Anesthesia History of arthroplasty History of bilateral knee replacement (~1998) History of cardiac radiofrequency ablation History of hysterectomy (~1991) Hx of appendectomy Hx of breast biopsy Hx of lithotripsy Hx of tubal ligation Family History Father Cancer Mother History of heart disease UTI (urinary tract infection) Brother History of heart disease Diabetes mellitus Gout Grandfather History of heart disease Grandfather Cancer Grandmother Cancer Social History marital status: number of children: 2 household members: spouse Smoking Status: Former smoker Tobacco: How many years used: 25 alcohol intake: current during the past year weight has: remained stable caffeine: Yes Type(s) of exercise: walking frequency: 1-2 times per week duration: 45-60 minutes/day Discharge Plan Discharge Plan Patient Disposition: Home Provider Discharge Comment: You were admitted due to chest pain, low oxygen saturation, possible pneumonia and low sodium level. We did not identify any cardiac issue or pulmonary embolism. CT suggested atypical pneumonia. Finish ora l antibiotic. Start back on chlorthalidone tomorrow if not vomiting and eating normally. Start back on dabigatran tomorrow (1 week post craniotomy). Seek urgent medical attention for worsening chest pain, shortness of breath, fever or cough. Discharge orders & Medications Prescriptions: New doxycycline hyclate 100 mg tablet 100 mg PO BID 4 Days Qty: 8 0RF Continued chlorthalidone 25 mg tablet 25 mg PO QAM Pradaxa 150 mg capsule 150 mg PO BID flecainide 50 mg tablet 100 mg PO BID venlafaxine [Effexor XR] 150 mg capsule,extended release 24hr 150 mg PO DAILY Qty: 90 3RF meloxicam 15 mg tablet 15 mg PO DAILY Qty: 30 2RF Gemtesa 75 mg tablet 75 mg PO DAILY Qty: 30 11RF lorazepam 0.5 mg tablet 0.5 mg PO BEDTIME PRN (Reason: insomnia) Qty: 30 2RF levothyroxine 50 mcg tablet 50 mcg PO DAILY solifenacin 10 mg tablet 10 mg PO QPM diltiazem HCl 360 mg capsule,extended release 24 hr 360 mg PO QPM Follow up/Referrals: David Rangel, [Primary Care Provider] - Diet/Activity/Treatments Diet: Regular Visit Report/Discharge Packet Instructions: DI for Dehydration -- Adult, How to Prevent Falls, DI for Atypical Pneumonia Stand Alone Forms: Patient Portal/API, Stroke Signs & Symptoms Discharge Data Primary Care Provider: David Rangel Attending Provider: Fam Etienne Admit Date/Time: 02/13/23 21:46 Discharges patient from system. Discharge Date/Time: 02/14/23 10:31 Quality VTE Deep Vein Thrombosis/Pulmonary Embolism Present on Admission: No
--- NOTE | 2023-02-20 19:35 | PC.NURSE ---
late entry: Ceftriaxone infusion initiated 02/14 at 0003 complete at 0034. Doxycycline infusion initiate at 0819 complete at 0920.
== END 2023-02-14 10:31 | disposition home or self-care (01) ==
LOC: ED 18:39 → AC 21:47
PROVIDERS: Admitting Provider Internal Medicine; Emergency Provider Emergency Medicine; PCP Family Medicine; Referring Provider Neurological Surgery; Visit Provider Internal Medicine
DX: J96.01 Acute respiratory failure with hypoxia (principal); R11.2 Nausea with vomiting, unspecified; R19.7 Diarrhea, unspecified; R51.9 Headache, unspecified; R42 Dizziness and giddiness; E86.0 Dehydration; E87.1 Hypo-osmolality and hyponatremia; J44.9 Chronic obstructive pulmonary disease, unspecified; E03.9 Hypothyroidism, unspecified; I10 Essential (primary) hypertension; I48.21 Permanent atrial fibrillation
CPT/HCPCS: 36415; 70450; 71045; 71275; 80053; 81003; 82550; 84145; 84484; 85025; 85379; 93005; 96365; 96366; 96367; 96375; 99285; G0378; C9113; J0696; J1200; J2405; J2930

== ENCOUNTER → 2023-02-20 10:23 | Outpatient (CLI) | payer OTHER, SELFPAY ==
[2023-02-13 22:43] VITALS: BMI 29.8
[2023-02-20 10:47] LABS: Hematocrit 35.1 % (36-46); Hemoglobin 11.8 g/dL (12.0-16.0); Mean Corpuscular HGB Conc 33.6 % (30-36); Mean Corpuscular Hemoglobin 30.4 PG (26-34); Mean Corpuscular Volume 90.5 fL (80-100); Platelet Count 252 X10^3/uL (150-400); Red Blood Cell Count 3.88 X10^6/uL (4.0-5.2); Red Cell Distribution Width 15.3 % (11.6-14.8); White Blood Cell Count 6.7 X10^3/uL (4.5-11.0)
[2023-02-20 10:59] LABS: BUN Creatinine Ratio 19.8 (6-22); Blood Urea Nitrogen 20 mg/dL (7-17); Calcium 9.7 mg/dL (8.4-10.2); Carbon Dioxide 26 mmol/L (22-32); Chloride 103 mmol/L (98-107); Estimated Glomerular Filt Rate 57 mL/min (>60); Glucose 107 mg/dL (80-110); HEMOLYSIS < 15 (0-50); Potassium 3.9 mmol/L (3.4-5.1); Sodium 137 mmol/L (137-145)
== END ==
PROVIDERS: PCP Family Medicine; Referring Provider Nurse Practitioner Family; Visit Provider Nurse Practitioner Family
DX: E87.1 Hypo-osmolality and hyponatremia (principal); J18.9 Pneumonia, unspecified organism
CPT/HCPCS: 36415; 80048; 85027

== ENCOUNTER → 2023-03-08 14:39 | Outpatient (CLI) | payer OTHER, SELFPAY ==
[2023-02-13 22:43] VITALS: BMI 29.8
--- NOTE | 2023-03-08 14:40 | DI.RAD.S_ITS ---
PROCEDURE: XR CHEST 2V INDICATIONS: follow up pneumonia TECHNIQUE: 2 views of the chest were acquired. COMPARISON: [facility], CT, CT ANGIO CHEST PE PROTOCOL, 02/13/2023, 17:20. [facility], CR, XR CHEST 1V, 02/13/2023, 15:49. [facility], CR, XR CHEST 1V, 09/04/2022, 13:44. FINDINGS: Surgical changes and devices: None. Lungs and pleura: Lungs are clear. No pleural effusions or pneumothorax. Mediastinum: Mediastinal contours are normal. Heart size is normal. Bones and chest wall: No suspicious bony abnormalities. Soft tissues appear unremarkable. IMPRESSION: No acute cardiopulmonary abnormality. Dictated by: Jovanny Simon M.D. on 03/08/2023 at 15:37 Approved by: Jovanny Simon M.D. on 03/08/2023 at 15:41
== END ==
PROVIDERS: PCP Family Medicine; Referring Provider Nurse Practitioner Family; Visit Provider Nurse Practitioner Family
DX: J18.9 Pneumonia, unspecified organism (principal)
CPT/HCPCS: 71046

== ENCOUNTER → 2023-03-14 10:33 | Outpatient (CLI) | payer OTHER, SELFPAY ==
[2023-02-13 22:43] VITALS: BMI 29.8
== END ==
PROVIDERS: PCP Family Medicine; Visit Provider Nurse Practitioner Family
DX: L02.91 Cutaneous abscess, unspecified (principal)
CPT/HCPCS: 87070; 87205

== ENCOUNTER → 2023-03-21 11:19 | Outpatient (CLI) | payer OTHER, SELFPAY ==
[2023-02-13 22:43] VITALS: BMI 29.8
--- NOTE | 2023-03-21 | DI.MRI.S_ITS ---
PROCEDURE: MR HEAD/BRAIN WO/W CON INDICATIONS: POST OPERATIVE WOUND ABSCESS TECHNIQUE: Noncontrast axial T1 spin echo, axial T2 fast spin echo, sagittal and axial FLAIR, coronal T2 fast spin echo, axial gradient echo, axial diffusion and ADC through the brain. After the administration of contrast, axial and coronal and sagittal T1 spin echo with fat saturation through the brain. COMPARISON: [facility], MR, MR HEAD/BRAIN WO/W CON, 12/10/2022, 17:29. FINDINGS: Image quality: Excellent. CSF spaces: Basal cisterns are patent. No extra-axial fluid collections. Ventricles are normal in size and shape. Brain: No midline shift. No intracranial bleeds. There has been interval resection of previous right meningioma at the cerebellopontine angle cistern. No abnormal intracranial enhancement. There is cerebral volume loss for age. There is periventricular white matter chronic small vessel ischemic change. The brainstem appears normal. Diffusion-weighted images demonstrate no acute ischemic insults. No chronic ischemic insults. Normal intravascular flow voids are present. Skull and face: Left parietal craniotomy changes are present. There is a small collection of fluid at the craniotomy site measuring approximately 1 cm. Orbits appear normal. Sinuses: Sinuses demonstrate minimal scattered mucosal thickening without fluid levels. Prominent fluid is present within the right mastoid air cells. 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 Small focus of fluid that is nonenhancing at the craniotomy site presumably postoperative. This may represent a seroma or phlegmon. Given lack of enhancement, it is felt to be in consistent with defined abscess at this point. Dictated by: Anna Napoles M.D. on 03/21/2023 at 16:35 Approved by: Anna Napoles M.D. on 03/21/2023 at 16:38
== END ==
PROVIDERS: PCP Family Medicine; Referring Provider Physician Assistant; Visit Provider Physician Assistant
DX: T81.49XA Infection following a procedure, other surgical site, initial encounter (principal); Z98.890 Other specified postprocedural states
CPT/HCPCS: 70553; A9579

== ENCOUNTER → 2023-07-01 15:53 | Outpatient (CLI) | payer OTHER, SELFPAY ==
[2023-04-12 15:11] VITALS: BMI 29.8
--- NOTE | 2023-07-01 15:55 | DI.MG.S_ITS ---
BILATERAL DIGITAL SCREENING MAMMOGRAM 3D/2D WITH CAD: 07/01/2023 CLINICAL: Routine screening. Family history of breast cancer. Comparison is made to exams dated: 12/26/2020 mammogram, 09/21/2019 mammogram, 08/16/2018 mammogram, and 08/09/2017 mammogram - [facility]. Both breasts are heterogeneously dense, which may obscure small masses (category c / 51-75% glandular tissue). Current study was also evaluated with a Computer Aided Detection (CAD) system. No significant masses, calcifications, or other findings are seen in either breast. There has been no significant interval change. IMPRESSION: NEGATIVE There is no mammographic evidence of malignancy. A 1 year screening mammogram is recommended. Based on the Tyrer Cuzick model (a risk assessment model) the patient's lifetime risk is 4.2% and her 10 year risk is 0.0%. According to the ACR, ACS, and NCCN guidelines, an annual breast MRI exam along with mammogram is recommended if the patient's lifetime risk is 20% or greater. This exam was interpreted at Station ID: [id number]. NOTE: For mammograms, a report in lay terms will be sent to the patient. Approximately 15% of breast malignancies will not be visualized mammographically. In the management of a palpable breast mass, a negative mammogram must not discourage biopsy of a clinically suspicious lesion. Electronically Signed By: Neftaly elmore/fritz:07/02/2023 12:37:35 letter sent: Normal Exam ACR BI-RADS Category 1: Negative [id number]
== END ==
PROVIDERS: PCP Family Medicine; Referring Provider Family Medicine; Visit Provider Family Medicine
DX: Z12.31 Encounter for screening mammogram for malignant neoplasm of breast (principal); Z80.3 Family history of malignant neoplasm of breast
CPT/HCPCS: 77063; 77067

== ENCOUNTER → 2023-07-24 10:48 | Outpatient (CLI) | payer OTHER, SELFPAY ==
[2023-04-12 15:11] VITALS: BMI 29.8
--- NOTE | 2023-07-24 10:49 | DI.MRI.S_ITS ---
PROCEDURE: MR HEAD/BRAIN WO/W CON INDICATIONS: f/u meningioma TECHNIQUE: Noncontrast axial T1 spin echo, axial T2 fast spin echo, sagittal and axial FLAIR, coronal T2 fast spin echo, axial gradient echo, axial diffusion and ADC through the brain. After the administration of contrast, axial and coronal and sagittal T1 spin echo with fat saturation through the brain. COMPARISON: [facility], CT, CT HEAD/BRAIN WO CON, 02/13/2023, 15:30. [facility], MR, MR HEAD/BRAIN WO/W CON, 12/10/2022, 17:29. [facility], MR, MR HEAD/BRAIN WO/W CON, 09/04/2022, 14:26. [facility], MR, MR HEAD/BRAIN WO/W CON, 03/21/2023, 11:47. FINDINGS: Image quality: Excellent. CSF spaces: Basal cisterns are patent. No extra-axial fluid collections. Ventricles are normal in size and shape. Brain: The previously seen mass involving the superior aspect of the right posterior fossa head. No recurrent mass can be seen within this region. No abnormal enhancement. No new masses are seen elsewhere. No midline shift. No intracranial bleeds. There is cerebral volume loss for age. There is periventricular white matter chronic small vessel ischemic change. The brainstem appears normal. Diffusion-weighted images demonstrate no acute ischemic insults. No chronic ischemic insults. Normal intravascular flow voids are present. Skull and face: Right posterior craniotomy changes are seen. A mild degree of fluid can be seen associated with the bone at this site, without enhancement. The appearance is improved compared to the prior examination. Calvarial marrow is otherwise normal in signal. Orbits appear normal. Note is made of bilateral lens replacements. Sinuses: There is a mild degree of fluid seen within the right mastoid air cells, which is improved compared to the prior examination. The left mastoid air cells are within normal limits. No significant paranasal sinus disease is seen. IMPRESSION: Prior right-sided meningioma removal, without findings of recurrence. No new masses or other significant abnormalities can be seen elsewhere. Decreased fluid involving the craniotomy region and within the right mastoid air cells, which is attributed to resolving benign postoperative change. Dictated by: Clark Ramos M.D. on 07/24/2023 at 12:06 Approved by: Clark Ramos M.D. on 07/24/2023 at 12:09
== END ==
PROVIDERS: PCP Family Medicine; Referring Provider Family Medicine; Visit Provider Family Medicine
DX: D32.9 Benign neoplasm of meninges, unspecified (principal); Z98.890 Other specified postprocedural states
CPT/HCPCS: 70553

== ENCOUNTER → 2023-09-08 11:17 | Outpatient (CLI) | payer OTHER, SELFPAY ==
[2023-04-12 15:11] VITALS: BMI 29.8
--- NOTE | 2023-09-08 11:18 | DI.MRI.S_ITS ---
PROCEDURE: MR LUMBAR SPINE WO CON INDICATIONS: Radiculopathy, lumbar region TECHNIQUE: Noncontrast sagittal T1 spin echo and T2 fast echo, sagittal STIR, and T2 fast spin echo through the lumbar spine. In cases with scoliosis, additional coronal T2 fast spin echo may be performed. COMPARISON: [facility], MR, MR LUMBAR SPINE WO CON, 01/11/2021, 12:09. FINDINGS: Image quality: Excellent. Alignment and Curvature: Mild levocurvature of the lumbar spine. Grade 1 anterolisthesis of L4 on L5. Grade 1 retrolisthesis of T12 on L1. Bone Marrow: Mild multilevel degenerative endplate changes. Marrow is of normal overall signal. No acute vertebral body compression fractures. Spinal Cord: Conus medullaris terminates at the L1 level. Visualized cord demonstrates normal signal and size. Paraspinous Soft Tissues: Left adrenal nodule measuring 2 cm. T12-L1: Disc desiccation height loss. Degenerative endplate changes. Posterior disc bulge. Facet arthropathy. Mild central canal stenosis. Moderate bilateral neural foraminal stenosis. Stable compared to prior. L1-L2: Facet arthropathy. No significant central canal or neural foraminal stenosis. L2-L3: Disc desiccation height loss. Posterior disc bulge. Facet arthropathy and thickening of ligamentum flavum. Epidural lipomatosis. Mild to moderate central canal stenosis stable. Moderate bilateral neural foraminal stenosis is stable. L3-L4: Disc desiccation height loss. Posterior disc bulge. Facet arthropathy and thickening ligamentum flavum. Moderate to severe central canal stenosis stable. Moderate bilateral neural foraminal stenosis is mildly progressed. L4-L5: Anterolisthesis. Facet arthropathy and thickening of ligamentum flavum. Epidural lipomatosis. Stable severe central canal stenosis. Stable mild bilateral neural foraminal stenosis. L5-S1: Disc desiccation and height loss. Posterior disc bulge. Partial effacement of the right greater than left lateral recess. Facet arthropathy and thickening of the ligamentum flavum. Stable mild to moderate central canal stenosis. Stable severe bilateral neural foraminal stenosis. IMPRESSION: 1. Multilevel degenerative changes of the lumbar spine as described above. 2. There is mild progression of now moderate bilateral neural foraminal stenosis at L3-L4. Otherwise, degenerative changes are grossly stable compared to prior. 3. Multilevel central canal stenosis, severe at L4-5. 4. Severe bilateral neural foraminal stenosis at L5-S1. 5. Left adrenal nodule measuring 2 cm, correlate with prior adrenal protocol CT. Dictated by: Jarett Keenan M.D. on 09/09/2023 at 10:23 Approved by: Jarett Keenan M.D. on 09/09/2023 at 10:32
== END ==
PROVIDERS: PCP Family Medicine; Referring Provider Student in an Organized Health Care Education/Training Program; Visit Provider Student in an Organized Health Care Education/Training Program
DX: M47.26 Other spondylosis with radiculopathy, lumbar region (principal); M47.27 Other spondylosis with radiculopathy, lumbosacral region; M48.061 Spinal stenosis, lumbar region without neurogenic claudication; M48.07 Spinal stenosis, lumbosacral region; E27.9 Disorder of adrenal gland, unspecified
CPT/HCPCS: 72148

== ENCOUNTER → 2023-10-23 15:41 | Outpatient (CLI) | payer OTHER, SELFPAY ==
[2023-04-12 15:11] VITALS: BMI 29.8
[2023-10-23 18:24] LABS: MRSA (Nasal) PCR Not Detected (Not Detect)
== END ==
PROVIDERS: PCP Family Medicine; Visit Provider Physician Assistant
DX: Z01.818 Encounter for other preprocedural examination (principal)
CPT/HCPCS: 87797

== ENCOUNTER → 2023-10-24 11:21 | Outpatient (CLI) | payer OTHER, SELFPAY ==
[2023-04-12 15:11] VITALS: BMI 29.8
[2023-10-24 12:34] LABS: Add Manual Diff / Slide Review NO; Basophils Absolute Auto 0 /uL (0-100); Basophils Percent Auto 0.9 % (0-2); Eosinophils Absolute Auto 100 /uL (0-450); Eosinophils Percent Auto 1.4 % (2-4); Hemoglobin 12.1 g/dL (12.0-16.0); Lymphocytes Absolute Auto 1300 /uL (1100-4500); Lymphocytes Percent Auto 29.5 % (25-40); Mean Corpuscular HGB Conc 33.7 % (30-36); Mean Corpuscular Hemoglobin 30.8 PG (26-34); Mean Corpuscular Volume 91.6 fL (80-100); Monocytes Absolute Auto 300 /uL (0-900); Monocytes Percent Auto 7.6 % (3-14); Neutrophils Absolute Auto 2800 /uL (1500-7000); Neutrophils Percent Auto 60.6 % (50-75); Platelet Count 214 X10^3/uL (150-400); Red Blood Cell Count 3.93 X10^6/uL (4.0-5.2); Red Cell Distribution Width 13.3 % (11.6-14.8); White Blood Cell Count 4.6 X10^3/uL (4.5-11.0)
[2023-10-24 12:46] LABS: Hemoglobin A1C% w Est Avg Glu 5.3 % (4.0-6.0)
[2023-10-24 12:51] LABS: INR 1.2 (0.9-1.3)
[2023-10-24 13:10] LABS: Alanine Aminotransferase 15 IU/L (<35); Albumin 3.8 g/dL (3.5-5.0); Albumin Globulin Ratio 1.5 (1.0-2.8); Alkaline Phosphatase 82 U/L (38-126); Aspartate Aminotransferase 23 IU/L (14-36); BUN Creatinine Ratio 24.1 (6-22); Bilirubin Total 0.5 mg/dL (0.2-1.3); Blood Urea Nitrogen 21 mg/dL (7-17); Calcium 10.1 mg/dL (8.4-10.2); Carbon Dioxide 30 mmol/L (22-32); Chloride 106 mmol/L (98-107); Cholesterol 185 mg/dL (140-199); Estimated Glomerular Filt Rate > 60 mL/min (>60); Globulin 2.5 g/dL (1.7-4.1); Glucose 92 mg/dL (80-110); HDL Cholesterol 82 mg/dL (40-60); HEMOLYSIS < 15 (0-50); LDL Cholesterol Calculated 80 mg/dL (<100); Potassium 4.1 mmol/L (3.4-5.1); Sodium 138 mmol/L (137-145); Total Protein 6.3 g/dL (6.3-8.2); Triglycerides 113 mg/dL (35-150)
[2023-10-24 13:19] LABS: Free T4, Direct Thyroxine 1.11 ng/dL (0.78-2.19)
[2023-10-24 13:34] LABS: Thyroid Stimulating Hormone 2.35 uIU/mL (0.47-4.68)
== END ==
PROVIDERS: PCP Family Medicine; Referring Provider Physician Assistant; Visit Provider Physician Assistant
DX: Z00.00 Encounter for general adult medical examination without abnormal findings (principal); Z01.818 Encounter for other preprocedural examination; R73.03 Prediabetes; D64.9 Anemia, unspecified; N18.9 Chronic kidney disease, unspecified; E03.9 Hypothyroidism, unspecified; I10 Essential (primary) hypertension
CPT/HCPCS: 36415; 80053; 80061; 83036; 84439; 84443; 85025; 85610

== ENCOUNTER → 2024-03-06 11:16 | Outpatient (CLI) | payer OTHER, SELFPAY ==
[2023-11-25 16:11] VITALS: BMI 29.8
--- NOTE | 2024-03-06 11:17 | DI.RAD.S_ITS ---
PROCEDURE: XR HIP W PEL IF DONE RT 2V INDICATIONS: R hip pain TECHNIQUE: AP pelvis with lateral view(s) of the right hip(s). COMPARISON: None. FINDINGS: Bones: No fractures or dislocations. Pelvic ring appears intact. Severe right and moderate to severe left joint space narrowing and juxta-articular osteophytosis. There is [id number] bilaterally. No suspicious bony lesions. Degenerative changes of the lower lumbar spine and bilateral SI joints as well as pubic symphysis. Soft tissues: The visualized bowel gas pattern is normal. No suspicious soft tissue calcifications. IMPRESSION: 1. No acute bony abnormality. If there is high clinical suspicion for a radiographically occult fracture, recommend cross-sectional imaging for further evaluation. 2. Severe right and moderate to severe left hip osteoarthritis. Dictated by: Robi Zamarripa M.D. on 03/06/2024 at 15:51 Approved by: Robi Zamarripa M.D. on 03/06/2024 at 15:52
== END ==
PROVIDERS: PCP Family Medicine; Referring Provider Family Medicine; Visit Provider Family Medicine
DX: M16.0 Bilateral primary osteoarthritis of hip (principal); M25.551 Pain in right hip
CPT/HCPCS: 73502

== ENCOUNTER 2024-04-24 21:50 | Emergency (ER) | payer OTHER, SELFPAY ==
[2023-11-25 16:11] VITALS: BMI 29.8
[2024-04-24] VITALS (7 sets, daily range): BP systolic 165–196; BP diastolic 76–96; PULSE 62–66; RESP 14–20; TEMP 36.2; O2SAT 92–96; BMI 29.8
--- NOTE | 2024-04-24 22:02 | EKG_ITS ---
[place] [address] [place] [id number] Test Date: 2024-04-24 Pat Name: Velvet Kim Department: [facility] Room: Gender: Female Admissions Dean: : 1945 Requested By: Order Number: [id number] Reading MD: Thomas Rivera MD Measurements Intervals [place] Rate: 63 P: 45 W[place]: 168 QRS: -34 QRSD: 96 T: 39 QT: 400 QTc: 409 Interpretive Statements Normal sinus rhythm Left axis deviation Moderate voltage criteria for LVH, may be normal variant ( R in aVL , Warren product ) Possible Anterior infarct , age undetermined Electronically Signed On 04-29-2024 8:32:26 PDT by Thomas Rivera MD
--- NOTE | 2024-04-24 22:02 | DI.RAD.S_ITS ---
PROCEDURE: XR CHEST 1V INDICATIONS: chest pain TECHNIQUE: One view of the chest was acquired. COMPARISON: [facility], CT, CT ANGIO CHEST PE PROTOCOL, 02/13/2023, 17:20. [facility], CR, XR CHEST 1V, 02/13/2023, 15:49. [facility], CR, XR CHEST 2V, 03/08/2023, 14:38. FINDINGS: Surgical changes and devices: None. Lungs and pleura: An incomplete inspiratory result is noted, causing a crowded appearance to the lung markings. No focal infiltrates are seen. No pneumothorax or significant pleural effusions are seen. Mediastinum: The cardiac contours are within normal limits. The aorta demonstrates calcification and tortuosity. Bones and chest wall: No suspicious bony lesions. Age-appropriate bony degenerative changes are seen. Overlying soft tissues appear unremarkable. IMPRESSION: Low lung volumes, without an acute abnormality seen by plain film. Dictated by: Clark Ramos M.D. on 04/24/2024 at 21:47 Approved by: Clark Ramos M.D. on 04/24/2024 at 21:48
[2024-04-24 22:15] LABS: Add Manual Diff / Slide Review NO; Basophils Absolute Auto 100 /uL (0-100); Basophils Percent Auto 0.9 % (0-2); Eosinophils Absolute Auto 100 /uL (0-450); Eosinophils Percent Auto 1.4 % (2-4); Hematocrit 36.2 % (36-46); Lymphocytes Absolute Auto 1600 /uL (1100-4500); Lymphocytes Percent Auto 22.3 % (25-40); Mean Corpuscular HGB Conc 33.3 % (30-36); Mean Corpuscular Hemoglobin 30.5 PG (26-34); Mean Corpuscular Volume 91.7 fL (80-100); Monocytes Absolute Auto 600 /uL (0-900); Monocytes Percent Auto 8.5 % (3-14); Neutrophils Absolute Auto 4800 /uL (1500-7000); Neutrophils Percent Auto 66.9 % (50-75); Platelet Count 212 X10^3/uL (150-400); Red Blood Cell Count 3.94 X10^6/uL (4.0-5.2); Red Cell Distribution Width 13.9 % (11.6-14.8); White Blood Cell Count 7.1 X10^3/uL (4.5-11.0)
--- NOTE | 2024-04-24 22:28 | ED_ITS ---
HPI - Chest Pain General Chief Complaint: Chest Pain Stated Complaint: Chest Pain Time Seen by Provider: 04/24/24 22:07 Source: patient Mode of arrival: Ambulatory Limitations: no limitations History of Present Illness HPI narrative: Patient is an 78-year-old female who is here for evaluation of right-sided chest discomfort. She stated that the discomfort started approximately 3 hours ago. Is on the right side of her chest. She states there is a baseline discomfort that occasionally gets worse. She describes it as sharp. No skin changes over the area. No breast changes. No nipple discharge. No fevers. She does state that it is somewhat worse with taking a deep breath but she was not short of breath. No coughing. No trauma. Somewhat worse with palpation. No worse with movement. She did try some medications for indigestion prior to arrival without any improvement. She was sitting on the couch when the symptoms started. No abdominal pain. Related Data Home Medications Medication Instructions Recorded Confirmed chlorthalidone 25 mg tablet 25 mg PO QAM 04/29/21 04/21/24 ascorbic acid-collagen PO 06/17/23 04/21/24 dabigatran etexilate 110 mg mg PO 03/06/24 04/21/24 capsule (Pradaxa) vibegron 75 mg tablet (Gemtesa) 75 mg PO DAILY 04/21/24 04/21/24 Previous Rx's Medication Instructions Recorded Disabled Parking Permint #1 ea 06/17/23 levothyroxine 50 mcg tablet 50 mcg PO DAILY #90 tabs 11/04/23 tramadol 50 mg tablet 50 mg PO TID PRN pain #90 tabs 03/14/24 venlafaxine 150 mg 300 mg (2 x 150 mg) PO DAILY #180 04/01/24 capsule,extended release 24 hr caps (Effexor XR) lorazepam 0.5 mg tablet See Rx Instructions .Route 04/08/24 .COMPLEX #30 tabs diltiazem HCl 180 mg capsule,24 180 mg PO DAILY #90 caps 04/21/24 hr,extended release losartan 50 mg tablet 50 mg PO BID #180 tabs 04/21/24 Allergies Allergy/AdvReac Type Severity Reaction Status Date / Time azithromycin [AZITHROMYCIN] Allergy Unknown Verified 04/21/24 10:43 codeine Allergy Unknown Verified 04/21/24 10:43 iodine [IODINE] Allergy Unknown Verified 04/21/24 10:43 latex Allergy Unknown Hives Verified 04/21/24 10:43 Review of Systems Review of Systems ROS Unobtainable: All systems reviewed & are unremarkable except as noted in HPI and below Patient History Medical History Left shoulder strain Right hip pain Lumbar stenosis with neurogenic claudication Encounter for wellness examination in adult Strain of piriformis muscle Anemia Chronic kidney disease Pre-diabetes Encounter for pre-operative cardiovascular clearance Hypothyroidism Meningioma Adrenal gland anomaly Urge incontinence Overactive bladder Influenza Degenerative lumbar spinal stenosis History of tobacco use Hypertension Osteoarthritis (~1997) Depression (~1989) Shoulder pain (~2019) Chronic back pain (~2019) Carpal tunnel syndrome (~2013) Mumps (~1949) Measles (~1948) Chicken pox (~1949) Peripheral neuropathy COPD (chronic obstructive pulmonary disease) Urinary incontinence (~2019) Atrial fibrillation (~2018) Medicare annual wellness visit, subsequent Surgical History History of cardiac radiofrequency ablation Hx of tubal ligation Hx of breast biopsy Hx of lithotripsy Hx of appendectomy Anesthesia History of arthroplasty History of hysterectomy (~1991) History of bilateral knee replacement (~1998) Family History Father Cancer Mother History of heart disease UTI (urinary tract infection) Brother History of heart disease Diabetes mellitus Gout Grandfather History of heart disease Grandfather Cancer Grandmother Cancer Social History marital status: number of children: 2 household members: spouse Smoking Status: Former smoker Tobacco: How many years used: 25 alcohol intake: current during the past year weight has: remained stable caffeine: Yes Type(s) of exercise: walking frequency: 1-2 times per week duration: 45-60 minutes/day Smoking Status: Former smoker alcohol intake frequency: 0-2 drinks per day Alcohol type: wine Substance Use Type: does not use Exam Initial Vital Signs Initial Vital Signs: Vital Signs Temperature 97.1 F L 04/24/24 21:54 Pulse Rate 66 04/24/24 21:54 Respiratory Rate 18 04/24/24 21:54 Blood Pressure 196/96 H 04/24/24 21:54 Pulse Oximetry 96 04/24/24 21:54 Oxygen Delivery Method Room Air 04/24/24 21:54 Const General: cooperative, comfortable and No ill appearing HENMT Head: normal to inspection and normocephalic Chest Chest: No crepitus and No tenderness Resp Effort & Inspection: normal respiratory effort Auscultation: clear to auscultation bilaterally Cardio Rate: regular rate Rhythm: regular rhythm GI Inspection: normal to inspection Skin General: no rashes or lesions noted Neuro General: patient alert, patient awake, patient oriented x3 and moves all extremities Extrem General: normal to inspection and No edema Course Orders Ordered: ED Orders 04/24/24 22:02 XR chest 1V Stat EKG-12 Lead Stat 04/24/24 22:09 Complete Blood Count AUTO DIFF Stat Comprehensive Metabolic Panel Stat Lipase Stat Troponin & CK Cardiac Panel Stat 04/25/24 00:14 Troponin & CK Cardiac Panel Stat Discontinued Medications Acetaminophen (Acetaminophen 325 Mg Tablet) 650 mg PO NOW ONE Stop: 04/25/24 01:25 Last Admin: 04/25/24 01:48 Dose: 650 mg Documented By: DHIRAJ Aspirin (Aspirin 81 Mg Chew Tab) 324 mg PO NOW ONE Stop: 04/24/24 22:03 Last Admin: 04/24/24 22:52 Dose: Not Given Documented By: FIOR Vital Signs Vital signs: Vital Signs - 8 hr 04/24/24 21:54 04/24/24 22:13 04/24/24 22:13 Temperature 97.1 F L Pulse Rate 66 64 Respiratory Rate 18 17 Blood Pressure 196/96 H 167/77 H Pulse Oximetry 96 95 Oxygen Delivery Method Room Air 04/24/24 22:30 04/24/24 22:31 04/24/24 22:31 Temperature Pulse Rate 63 63 Respiratory Rate 20 15 Blood Pressure 165/77 H Pulse Oximetry 93 93 Oxygen Delivery Method 04/24/24 23:00 04/24/24 23:01 04/24/24 23:01 Temperature Pulse Rate 65 66 Respiratory Rate 14 18 Blood Pressure 166/76 H Pulse Oximetry 92 92 Oxygen Delivery Method 04/24/24 23:31 04/24/24 23:31 04/25/24 00:00 Temperature Pulse Rate 62 62 Respiratory Rate 15 12 Blood Pressure 178/79 H Pulse Oximetry 92 94 Oxygen Delivery Method 04/25/24 00:01 04/25/24 00:01 04/25/24 00:30 Temperature Pulse Rate 62 63 Respiratory Rate 12 21 Blood Pressure 186/86 H Pulse Oximetry 94 94 Oxygen Delivery Method 04/25/24 01:00 04/25/24 01:01 04/25/24 01:01 Temperature Pulse Rate 64 63 Respiratory Rate 12 13 Blood Pressure 182/79 H Pulse Oximetry 94 93 Oxygen Delivery Method 04/25/24 01:30 04/25/24 01:30 Temperature Pulse Rate 93 H Respiratory Rate 15 Blood Pressure 186/90 H Pulse Oximetry 94 Oxygen Delivery Method MDM - Chest Pain Lab Data Attestation: I reviewed the patient's lab results. 04/24/24 22:09 04/24/24 22:09 Labs: Lab Results 04/24/24 04/25/24 Range/Units 22:09 00:14 WBC 7.1 (4.5-11.0) X10^3/uL RBC 3.94 L (4.0-5.2) X10^6/uL Hgb 12.0 (12.0-16.0) g/dL Hct 36.2 (36-46) % MCV 91.7 (80-100) fL MCH 30.5 (26-34) PG MCHC 33.3 (30-36) % RDW 13.9 (11.6-14.8) % Plt Count 212 (150-400) X10^3/uL Neut % (Auto) 66.9 (50-75) % Lymph % (Auto) 22.3 L (25-40) % Carter % (Auto) 8.5 (3-14) % Eos % (Auto) 1.4 L (2-4) % Baso % (Auto) 0.9 (0-2) % Neut # (Auto) 4800 (3100-7144) /uL Lymph # (Auto) 1600 (9391-4490) /uL Carter # (Auto) 600 (0-900) /uL Eos # (Auto) 100 (0-450) /uL Baso # (Auto) 100 (0-100) /uL Sodium 135 L (137-145) mmol/L Potassium 4.0 (3.4-5.1) mmol/L Chloride 102 (98-107) mmol/L Carbon Dioxide 27 (22-32) mmol/L BUN 29 H (7-17) mg/dL Creatinine 1.03 (0.52-1.04) mg/dL Estimated GFR 55 L (>60) mL/min BUN/Creatinine Ratio 28.2 H (6-22) Glucose 101 (80-110) mg/dL Calcium 10.0 (8.4-10.2) mg/dL Total Bilirubin 0.4 (0.2-1.3) mg/dL AST 31 (14-36) IU/L ALT 19 (<35) IU/L Alkaline Phosphatase 102 (38-126) U/L Total Creatine Kinase 57 49 (30-135) U/L Troponin I 0.019 0.012 (0.01-0.034) ng/mL Total Protein 6.9 (6.3-8.2) g/dL Albumin 4.0 (3.5-5.0) g/dL Globulin 2.9 (1.7-4.1) g/dL Albumin/Globulin Ratio 1.4 (1.0-2.8) Lipase 67 (23-300) U/L Imaging Data Chest x-ray: Radiologist's Impression: PROCEDURE: XR CHEST 1V INDICATIONS: chest pain TECHNIQUE: One view of the chest was acquired. COMPARISON: [facility], CT, CT ANGIO CHEST PE PROTOCOL, 02/13/2023, 17:20. [facility], CR, XR CHEST 1V, 02/13/2023, 15:49. [facility], CR, XR CHEST 2V, 03/08/2023, 14:38. FINDINGS: Surgical changes and devices: None. Lungs and pleura: An incomplete inspiratory result is noted, causing a crowded appearance to the lung markings. No focal infiltrates are seen. No pneumothorax or significant pleural effusions are seen. Mediastinum: The cardiac contours are within normal limits. The aorta demonstrates calcification and tortuosity. Bones and chest wall: No suspicious bony lesions. Age-appropriate bony degenerative changes are seen. Overlying soft tissues appear unremarkable. IMPRESSION: Low lung volumes, without an acute abnormality seen by plain film. ECG Data Attestation: I personally reviewed and interpreted this ECG as follows: Interpretation: Sinus rhythm Ventricular rate 63 Left axis deviation LVH Normal QRS No ST T wave changes MDM Narrative Medical decision making narrative: Patient's discomfort is on the right side of her chest. She was LVH but nonischemic EKG. 2- troponins. Chest x-ray is unremarkable. It is somewhat reproducible with palpation. Her chest x-ray is not consistent with pneumonia. She does not have a cough. No skin changes concerning for zoster. No breast changes. Had a long discussion with the patient regarding her symptoms. I have low suspicion that this is ACS given her presentation today. We did discuss other possibilities such as musculoskeletal and GI related. Low suspicion that this is an intra-abdominal issue such as referred pain from a gallbladder. Patient understands lack of a definitive diagnosis. Will discharge patient home with instructions to contact her primary doctor for follow-up to discuss potential further risk stratification testing. She was given return precautions. She expressed understanding and agreement with plan. Discharge Plan Departure Patient Disposition: Home Clinical Impression: Atypical chest pain Instructions: DI for Atypical Chest Pain Activity Restrictions/Additional Instructions: Your workup here in the emergency department is very reassuring. You can take Tylenol/ibuprofen for discomfort. I recommend that the beginning of next week you contact your primary doctor and also your contact finger assembler for follow-up. Return to the emergency department for new or worsening symptoms. Prescriptions: No Action chlorthalidone 25 mg tablet 25 mg PO QAM levothyroxine 50 mcg tablet 50 mcg PO DAILY Qty: 90 3RF tramadol 50 mg tablet 50 mg PO TID PRN (Reason: pain) Qty: 90 2RF lorazepam 0.5 mg tablet See Rx Instructions .ROUTE .COMPLEX Qty: 30 2RF Rx Instructions: Take 1 tablet (0.5mg) PO QHS PRN; ascorbic acid-collagen PO (DME) Disabled Parking Permint See Rx Instructions .ROUTE .MEDSUPPLY Qty: 1 0RF Rx Instructions: I find this patient to be medically disabled and qualified for Disabled Parking as indicated and signed on the Accompanying Disabled Parking Application for individuals. dabigatran etexilate [Pradaxa] 110 mg capsule PO venlafaxine [Effexor XR] 150 mg capsule,extended release 24hr 300 mg PO DAILY Qty: 180 3RF Gemtesa 75 mg tablet 75 mg PO DAILY losartan 50 mg tablet 50 mg PO BID Qty: 180 0RF diltiazem HCl 180 mg capsule,extended release 24 hr 180 mg PO DAILY Qty: 90 0RF Referrals: David Rangel, [Primary Care Provider] - Stand Alone Forms: Patient Portal/API
[2024-04-24 22:40] LABS: Alanine Aminotransferase 19 IU/L (<35); Albumin Globulin Ratio 1.4 (1.0-2.8); Alkaline Phosphatase 102 U/L (38-126); Aspartate Aminotransferase 31 IU/L (14-36); BUN Creatinine Ratio 28.2 (6-22); Bilirubin Total 0.4 mg/dL (0.2-1.3); Blood Urea Nitrogen 29 mg/dL (7-17); Carbon Dioxide 27 mmol/L (22-32); Chloride 102 mmol/L (98-107); Creatine Kinase 57 U/L (30-135); Estimated Glomerular Filt Rate 55 mL/min (>60); Globulin 2.9 g/dL (1.7-4.1); Glucose 101 mg/dL (80-110); HEMOLYSIS < 15 (0-50); Lipase 67 U/L (23-300); Sodium 135 mmol/L (137-145); Total Protein 6.9 g/dL (6.3-8.2)
[2024-04-24 22:52] LABS: Troponin I 0.019 ng/mL (0.01-0.034)
[2024-04-25] VITALS: PULSE 62; RESP 12; O2SAT 94
[2024-04-25 00:01] VITALS: BP 186/86; PULSE 62; RESP 12; O2SAT 94
[2024-04-25 00:30] VITALS: PULSE 63; RESP 21; O2SAT 94
[2024-04-25 00:35] LABS: Creatine Kinase 49 U/L (30-135)
[2024-04-25 00:48] LABS: Troponin I 0.012 ng/mL (0.01-0.034)
[2024-04-25 01:00] VITALS: PULSE 64; RESP 12; O2SAT 94
[2024-04-25 01:01] VITALS: BP 182/79; PULSE 63; RESP 13; O2SAT 93
[2024-04-25 01:30] VITALS: BP 186/90; PULSE 93; RESP 15; O2SAT 94
[2024-04-25] MEDS: ACETAMINOPHEN 325 MG TABLET 650 MG PO (01:48)
== END 2024-04-25 01:52 | disposition home or self-care (01) ==
PROVIDERS: Emergency Provider Emergency Medicine; PCP Family Medicine
DX: R07.89 Other chest pain (principal)
CPT/HCPCS: 36415; 71045; 80053; 82550; 83690; 84484; 85025; 93005; 99284

== ENCOUNTER → 2024-05-27 11:07 | Outpatient (CLI) | payer OTHER, SELFPAY ==
[2023-11-25 16:11] VITALS: BMI 29.8
--- NOTE | 2024-05-27 11:25 | EKG_ITS ---
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
[2024-05-27 12:40] LABS: Appearance Urine UA CLEAR; Bilirubin Urine UA NEGATIVE (NEGATIVE); Color Urine UA YELLOW; Glucose Urine UA NEGATIVE (Negative); Ketones Urine UA NEGATIVE (NEGATIVE); Leukocyte Esterase Urine UA NEGATIVE (NEGATIVE); Nitrite Urine UA NEGATIVE (Negative); Occult Blood Urine UA NEGATIVE (Negative); Protein Urine UA NEGATIVE (Negative); Urobilinogen Urine UA 0.2 E.U./dL (0.2)
[2024-05-27 12:45] LABS: Urine Volume 10mL (spun)
[2024-05-27 12:46] LABS: Bacteria Urine None Seen; Culture Indicated Urine Cult Not Indicated; RBC Urine None Seen (0-5/HPF); Squamous Epithelial Cell Urine None Seen (0-5/HPF); WBC Urine None Seen (0-5/HPF)
[2024-05-27 13:52] LABS: Add Manual Diff / Slide Review NO; Basophils Absolute Auto 100 /uL (0-100); Eosinophils Absolute Auto 200 /uL (0-450); Hematocrit 36.4 % (36-46); Hemoglobin 12.1 g/dL (12.0-16.0); Lymphocytes Absolute Auto 1000 /uL (1100-4500); Lymphocytes Percent Auto 20.1 % (25-40); Mean Corpuscular HGB Conc 33.2 % (30-36); Mean Corpuscular Volume 90.2 fL (80-100); Monocytes Absolute Auto 500 /uL (0-900); Neutrophils Absolute Auto 3400 /uL (1500-7000); Neutrophils Percent Auto 65.9 % (50-75); Platelet Count 221 X10^3/uL (150-400); Red Blood Cell Count 4.04 X10^6/uL (4.0-5.2); Red Cell Distribution Width 14.3 % (11.6-14.8); White Blood Cell Count 5.1 X10^3/uL (4.5-11.0)
[2024-05-27 13:57] LABS: Hemoglobin A1C% w Est Avg Glu 5.4 % (4.0-6.0)
[2024-05-27 14:13] LABS: BUN Creatinine Ratio 25.2 (6-22); Blood Urea Nitrogen 28 mg/dL (7-17); Calcium 10.4 mg/dL (8.4-10.2); Carbon Dioxide 27 mmol/L (22-32); Chloride 103 mmol/L (98-107); Estimated Glomerular Filt Rate 50 mL/min (>60); Glucose 123 mg/dL (80-110); HEMOLYSIS < 15 (0-50); Potassium 4.1 mmol/L (3.4-5.1); Sodium 136 mmol/L (137-145)
== END ==
PROVIDERS: PCP Family Medicine; Referring Provider Orthopaedic Surgery; Visit Provider Orthopaedic Surgery
DX: Z01.818 Encounter for other preprocedural examination (principal); R73.9 Hyperglycemia, unspecified; Z01.812 Encounter for preprocedural laboratory examination; N39.0 Urinary tract infection, site not specified
CPT/HCPCS: 36415; 80048; 81001; 83036; 85025; 93005

== ENCOUNTER → 2024-07-02 10:57 | Outpatient (CLI) | payer OTHER, SELFPAY ==
[2023-11-25 16:11] VITALS: BMI 29.8
--- NOTE | 2024-07-02 10:58 | DI.MG.S_ITS ---
BILATERAL DIGITAL SCREENING MAMMOGRAM 3D/2D WITH CAD: 07/02/2024 CLINICAL: Routine screening. Family history of breast cancer. Comparison is made to exams dated: 07/01/2023 mammogram, 12/26/2020 mammogram, and 09/21/2019 mammogram - [facility]. The breasts are heterogeneously dense, which may obscure small masses (category c / 51-75% glandular tissue). Current study was also evaluated with a Computer Aided Detection (CAD) system. No significant masses, calcifications, or other findings are seen in either breast. There has been no significant interval change. IMPRESSION: NEGATIVE There is no mammographic evidence of malignancy. A 1 year screening mammogram is recommended. Based on the Tyrer Cuzick model (a risk assessment model) the patient's lifetime risk is 3.6% and her 10 year risk is 0.0%. According to the ACR, ACS, and NCCN guidelines, an annual breast MRI exam along with mammogram is recommended if the patient's lifetime risk is 20% or greater. This exam was interpreted at Station ID: [id number]. NOTE: For mammograms, a report in lay terms will be sent to the patient. Approximately 15% of breast malignancies will not be visualized mammographically. In the management of a palpable breast mass, a negative mammogram must not discourage biopsy of a clinically suspicious lesion. Electronically Signed By: Stevie arboleda/fritz:07/02/2024 21:46:40 letter sent: Normal Exam ACR BI-RADS Category 1: Negative
== END ==
PROVIDERS: PCP Family Medicine; Referring Provider Family Medicine; Visit Provider Family Medicine
DX: Z12.31 Encounter for screening mammogram for malignant neoplasm of breast (principal); Z80.3 Family history of malignant neoplasm of breast; R92.333 Mammographic heterogeneous density, bilateral breasts
CPT/HCPCS: 77063; 77067

== ENCOUNTER → 2024-07-06 10:05 | Outpatient (CLI) | payer OTHER, SELFPAY ==
[2023-11-25 16:11] VITALS: BMI 29.8
--- NOTE | 2024-07-06 10:07 | DI.NM.S_ITS ---
PROCEDURE: NM GARRY PERF SPECT R&S PHARM Rest and pharmacological stress myocardial perfusion SPECT with gated imaging and ejection fraction RADIOPHARMACEUTICAL: 25.3 mCi Tc-99m tetrafosmin IV at rest and 26.3 mCi Tc-99m tetrafosmin IV at peak effect of pharmacological stress. Hef-byh-tromnnaw was performed. INDICATIONS: THEODORE TECHNIQUE: Radiopharmaceutical was injected at peak stress test, and also at rest. SPECT images were obtained. SPECT myocardial perfusion images were displayed in short axis, horizontal long axis, and vertical long axis views. Gated images were reviewed using inthinc software. COMPARISON: None. CARDIAC STRESS: A pharmacologic stress test was performed under the supervision of an attending staff, using an infusion of lexiscan 0.4mg IV X1. Hemodynamic data: There is normal blood pressure and heart rate response to pharmacologic stress. Symptoms: The patient denied anginal chest pain. Aminophylline: none EKG: No diagnostic changes of ischemia; rare PVCs. FINDINGS: Raw data: There is good myocardial uptake of radiotracer. No significant motion artifacts. Edco-zd-nmmud ratio is 0.28 (normal is less than 0.38 for tetrafosmin tracer). Left ventricle function: Gated images demonstrate normal left ventricular wall thickening. No segmental wall motion abnormalities. No transient ischemic dilation; TID is 0.77 (normal less than 1.3). Left ventricle resting end diastolic volume is 99 mL. Left ventricle stress ejection fraction is 69%; normal range is above 45%. Myocardial perfusion: There is normal distribution of activity in the right and left ventricular myocardium. No fixed or reversible perfusion defects. IMPRESSION: Low risk, normal pharm nuclear stress test from inducible ischemia standpoint. Normal wall motion with normal systolic function (EF post stress 69%). No angina during the study. No significant change compared to the prior nuc stress test done 03/07/2022. Dictated by: Dylan Lerma MD on 07/10/2024 at 16:33 Approved by: Dylan Lerma MD on 07/10/2024 at 16:36
== END ==
PROVIDERS: PCP Family Medicine; Referring Provider Internal Medicine; Visit Provider Internal Medicine
DX: R06.09 Other forms of dyspnea (principal)
CPT/HCPCS: 78452; 93017; A9502; J2785

== ENCOUNTER → 2024-07-30 13:42 | Outpatient (CLI) | payer OTHER, SELFPAY ==
[2023-11-25 16:11] VITALS: BMI 29.8
--- NOTE | 2024-07-30 13:44 | DI.MRI.S_ITS ---
PROCEDURE: MR HEAD/BRAIN WO/W CON INDICATIONS: MENINGIOMA TECHNIQUE: Noncontrast axial T1 spin echo, axial T2 fast spin echo, sagittal and axial FLAIR, coronal T2 fast spin echo, axial gradient echo, axial diffusion and ADC through the brain. After the administration of contrast, axial and coronal and sagittal 3D VIBE or T1 spin echo with fat saturation through the brain. COMPARISON: [facility], MR, MR HEAD/BRAIN WO/W CON, 12/10/2022, 17:29. [facility], MR, MR HEAD/BRAIN WO/W CON, 07/24/2023, 11:09. FINDINGS: Image quality: Excellent. CSF Spaces: Basal cisterns are patent. No extra-axial fluid collections. Ventricles are normal in size and shape. Brain: No midline shift. No intracranial bleeds or masses. No abnormal intracranial enhancement. The brainstem appears normal. Diffusion-weighted images demonstrate no acute infarct. No chronic ischemic insults. Age-related volume loss and age-appropriate bwjd-zw-acgahjsv small vessel ischemic change. Normal intravascular flow voids are present. No evidence of residual or recurrent right CPA meningioma. Skull and face: Again noted is evidence of previous right posterior craniotomy. Calvarial marrow is normal in signal. Orbits appear normal. Sinuses: Sinuses and mastoids appear clear. IMPRESSION: 1. No evidence of residual or recurrent right CPA meningioma. 2. No acute intracranial process. 3. Age-appropriate volume loss and age-appropriate vfud-cw-wbtfkxlq small vessel ischemic change. Dictated by: Mynor Syed M.D. on 07/30/2024 at 18:06 Approved by: Mynor Syed M.D. on 07/30/2024 at 18:10
== END ==
PROVIDERS: PCP Family Medicine; Referring Provider Neurological Surgery; Visit Provider Neurological Surgery
DX: D32.0 Benign neoplasm of cerebral meninges (principal)
CPT/HCPCS: 70553; A9579

== ENCOUNTER → 2024-08-31 13:51 | Outpatient (CLI) | payer OTHER, SELFPAY ==
[2023-11-25 16:11] VITALS: BMI 29.8
[2024-08-31 14:18] LABS: Add Manual Diff / Slide Review NO; Basophils Absolute Auto 0 /uL (0-100); Eosinophils Absolute Auto 100 /uL (0-450); Eosinophils Percent Auto 1.6 % (2-4); Hematocrit 36.8 % (36-46); Hemoglobin 12.4 g/dL (12.0-16.0); Lymphocytes Absolute Auto 1300 /uL (1100-4500); Lymphocytes Percent Auto 27.1 % (25-40); Mean Corpuscular HGB Conc 33.7 % (30-36); Mean Corpuscular Hemoglobin 30.5 PG (26-34); Mean Corpuscular Volume 90.4 fL (80-100); Monocytes Absolute Auto 300 /uL (0-900); Monocytes Percent Auto 6.3 % (3-14); Neutrophils Absolute Auto 3100 /uL (1500-7000); Platelet Count 252 X10^3/uL (150-400); Red Blood Cell Count 4.08 X10^6/uL (4.0-5.2); Red Cell Distribution Width 14.3 % (11.6-14.8); White Blood Cell Count 4.9 X10^3/uL (4.5-11.0)
[2024-08-31 14:22] LABS: Hemoglobin A1C% w Est Avg Glu 5.3 % (4.0-6.0)
[2024-08-31 14:27] LABS: Alanine Aminotransferase 24 IU/L (<35); Albumin 4.2 g/dL (3.5-5.0); Albumin Globulin Ratio 1.6 (1.0-2.8); Alkaline Phosphatase 83 U/L (38-126); Aspartate Aminotransferase 34 IU/L (14-36); BUN Creatinine Ratio 26.1 (6-22); Bilirubin Total 0.4 mg/dL (0.2-1.3); Blood Urea Nitrogen 29 mg/dL (7-17); Calcium 10.4 mg/dL (8.4-10.2); Carbon Dioxide 27 mmol/L (22-32); Chloride 103 mmol/L (98-107); Estimated Glomerular Filt Rate 50 mL/min (>60); Globulin 2.7 g/dL (1.7-4.1); Glucose 98 mg/dL (80-110); HEMOLYSIS < 15 (0-50); Potassium 4.2 mmol/L (3.4-5.1); Sodium 137 mmol/L (137-145); Total Protein 6.9 g/dL (6.3-8.2)
[2024-08-31 20:12] LABS: Free T4, Direct Thyroxine 1.32 ng/dL (0.78-2.19)
[2024-08-31 20:26] LABS: Thyroid Stimulating Hormone 1.54 uIU/mL (0.47-4.68)
== END ==
LOC: LAB 13:51
PROVIDERS: PCP Family Medicine; Referring Provider Family Medicine; Visit Provider Family Medicine
DX: I48.91 Unspecified atrial fibrillation (principal); R73.03 Prediabetes; E87.1 Hypo-osmolality and hyponatremia; E03.9 Hypothyroidism, unspecified; I10 Essential (primary) hypertension
CPT/HCPCS: 80053; 83036; 83735; 84439; 84443; 85025

== ENCOUNTER 2024-10-06 05:55 | Day surgery (SDC) | payer OTHER, SELFPAY ==
[2023-11-25 16:11] VITALS: BMI 29.8
[2024-09-23 12:22] VITALS: BMI 30.3
[2024-09-29 07:51] VITALS: BMI 30.3
[2024-10-06] VITALS (16 sets, daily range): BP systolic 110–171; BP diastolic 51–84; PULSE 50–92; RESP 1–19; TEMP 35.7–36.9; O2SAT 6–98; BMI 29.7
--- NOTE | 2024-10-06 | DI.RAD.S_ITS ---
PROCEDURE: XR HIP W PEL IF DONE RT 2V INDICATIONS: Right DENISE TECHNIQUE: 4 intraoperative fluoroscopic view(s) of the hip acquired. COMPARISON: [facility], , XR HIP W PEL IF DONE RT 2V, 03/06/2024, 11:19. FINDINGS: Intraoperative fluoroscopic images shows right total hip arthroplasty in progress. IMPRESSION: Fluoro guidance was provided intraoperatively for right total hip arthroplasty performed by ordering physician. Dictated by: Albert Dunaway M.D. on 10/06/2024 at 10:54 Approved by: Albert Dunaway M.D. on 10/06/2024 at 10:55
--- NOTE | 2024-10-06 06:00 | DI.RAD.S_ITS ---
PROCEDURE: XR HIP W PEL IF DONE RT 2V INDICATIONS: DENISE TECHNIQUE: AP pelvis and lateral view of the hip acquired. COMPARISON: [facility], CR, XR HIP W PEL IF DONE RT 2V, 10/06/2024, 8:49. FINDINGS: Bones: Patient is status post right hip arthroplasty, with hardware components in expected positions. The hip joint appears congruent. The visualized bony structures appear intact. Moderate to severe left hip joint degeneration. Soft tissues: Overlying postoperative changes are noted. No suspicious soft tissue densities. IMPRESSION: Expected immediate postoperative appearance of right hip arthroplasty. Dictated by: Greg Wallace [facility] Interpreted: Albert Dunaway MD on 10/06/2024 at 12:13 Transcribed by: LELE on 10/06/2024 at 12:14 Approved by: Albert Dunaway M.D. on 10/06/2024 at 14:57
[2024-10-06] MEDS: VANCOMYCIN 1,000 MG in SODIUM CHLORIDE 0.9% 250 ML 250 MG IV (06:56)
[2024-10-06] MEDS: LACTATED RINGERS 1,000 ML 25 ML IV (06:59)
[2024-10-06] MEDS: ACETAMINOPHEN 325 MG TABLET 975 MG PO (07:00)
[2024-10-06] MEDS: CELECOXIB 200 MG CAPSULE PO (07:00)
--- NOTE | 2024-10-06 07:40 | PM.PREOP ---
Pre-operative Note Interval Note History & Physical reviewed/Exam performed by Physician: Yes Changes to H&P: No
--- NOTE | 2024-10-06 07:41 | P.OP_ITS ---
Operative Date/Time/Diagnoses Date of procedure: 10/06/24 Time of procedure: 08:00 Pre-op diagnosis: Right hip OA Post-op diagnosis: same Procedure & Clinicians Procedure: Right total hip arthroplasty anterior approach Same procedure as scheduled: Yes Indications: The patient has had progressively worsening right hip pain with radiographic c hanges consistent with arthritis. Non-operative management has failed and the patient has requested total hip replacement. The risks, benefits and alternatives to surgery were discussed with the patient prior to proceeding. Risks discussed included, but were not limited to, failure to relieve pain, leg length discrepancy, dislocation, stiffness, infection, nerve damage, deep venous thrombosis, pulmonary embolism, stroke, coma, heart attack, permanent paralysis and , as well as the potential need for eventual revision of the prosthetic. Surgeon: Lois Scherer Spice Cleaner: Sindy Blackwell Anesthesia Type: General Operative Notes Findings: Severe right hip OA, adequate stability, adequate bone Closure Type: primary Prosthetic devices, grafts, tissues, transplants, or devices: Scherer and nephew R3 52, neutral poly liner,one 6.5 mm screw, polar stem standard size 1, 36 by +0 oxinium Estimated Blood Loss (mL): 250 Blood products transfused: none Procedure in detail: The patient was brought to the operating room. Patient was carefully positioned in the supine position. Time-out was performed and antibiotics were given. Anesthesia was induced. She was positioned in the OR on the table in order to allow hyperextension of the hip. The right lower extremity was prepped and dr aped in a standard sterile fashion. An anterior right hip incision was made 1 fingerbreadth lateral to the anterior superior iliac spine and extended distally towards the greater trochanter. Dissection was carried out through skin and subcutaneous tissues. Superficial hemostasis was achieved. The fascia over the tensor fascia jose luis was defined and incised with a knife. Two Allis clamps were used to grasp the fascia. Tensor fascia jose luis was retracted laterally. A gelpi retractor was placed. Dissection was carried out down along the neck. The circumflex vessels were carefully identified and cauterized with the Aqua Mantis. A PA was used during the procedure was essential for intraoperative retraction and safe implantation of the components. There was good visualization of the femoral neck. A Cobra was placed superior to the neck and the gluteus fibers were carefully stripped from that superior aspect of the capsule. A 2nd retractor was placed along the inferior aspect of the neck. The rectus insertion along the capsule was partially released. A 3rd retractor that was then gently placed over the rim of the acetabulum under the rectus. Capsule was carefully incised and released from the intertrochanteric line circumferentially superior to the mid sagittal line and inferiorly to the mid sagittal line until the lesser trochanter was palpable. A tag stitch was placed both in the superior and inferior limb of the capsular insertion. Along the acetabulum capsule was also released up to the mid sagittal 12:00 position. A portion of the labrum was resected. A saw was used to perform an osteotomy at the level of the intertrochanteric line and the junction of the superior femoral neck leaving approximately 1 finger breath of residual inferior neck above the lesser trochanter. A 2nd cut was made along the femoral neck at the base of the head and a napkin ring of neck was removed. Corkscrew was placed in the femoral head and the head was removed without difficulty. Retractors were then repositioned around the acetabulum. Residual labrum was resected and additional osteophytes were removed. A reamer that was 4 mm below the templated size was placed by hand in the acetabulum and it was reamed to centralize the acetabulum. It was then reamed up to 2 under the templated size and fluoroscopy was brought in to confirm the position of the reaming and depth of reaming. I reamed 1 under the anticipated size. A trial cup was placed and noted that it was appropriately sized and fluoroscopy confirmed position and depth. The component was open and inserted without diff iculty fluoroscopic imaging was used to confirm that the cup had been adequately seated and was well positioned. It was further stabilized with a single screw. Neutral poly liner was placed. The cup was tested and noted to be stable. Attention was then directed to the femur. The femur was gently hyperextended additional capsular release was performed as needed in order to allow adequate visualization of the proximal femur with elevation of the femur. Patient was placed in a hyperextended slightly adducted position with maximum external rotation. Box osteotome was used to check for any residual neck as well as sclerotic bone along the trochanter. [place] pepper was placed in the femur. Additional broaching was performed. Canal finder was used to determine the alignment of the canal and position. Size 1 broach was placed. The canal was then appropriately broached up to the templated size as long as there was adequate stability of the broach and serial advancement of the broach without excessive impingement. Specific attention was directed at avoiding varus attempting to direct the distal aspect of the broach more anteriorly and avoiding excessive anteversion. Trial reduction showed acceptable range of motion, good stability, no posterior impingement, catholic of leg length and appropriate lateral shuck. I also hyperflexed the hip and checked that there was no impingement anteriorly and there was good stability with flexion, adduction and internal rotation. Marcaine and Exparel were injected. The stem was placed without difficulty. Repeat trial reduction and x-ray showed acceptable overall position, length, and no evidence of the femoral fracture. Final head was placed. Wound was meticulously irrigated with normal saline. The hip was reduced and additional Exparel and Marcaine were injected. The capsule was closed with interrupted nonabsorbable sutures. The fascia of the tensor was closed with interrupted and running Vicryl. No drain was placed. Any tensor fascia jose luis muscle that appeared to be contused or injured which was a minimal amount was carefully resected. Capsule around the tensor was injected with Exparel and Marcaine. The skin was closed with barbed stitches for the subcutaneous tissue and skin. We also used surgical glue. The wound was dressed sterilely. Brief Betadine soak was also used and was meticulously irrigated with normal saline. Patient was transferred to recovery room in satisfactory condition. Complications: none Post-operative Condition: stable Disposition: Acute Care Plan for aftercare: The patient will be maintained on a standard total hip replacement protocol with weight bearing as tolerated and anterior hip precautions. The patient will receive Pradaxa and sequential compression devices for DVT prophylaxis. The patient will be discharged home when safe for the home environment.
[2024-10-06] MEDS: CEFAZOLIN 2 GM/100 ML PREMIX 100 ML IV ×3 (08:00→23:45)
[2024-10-06] MEDS: TRANEXAMIC ACID 1,000 MG VIAL 1000 MG INJ ×2 (08:10→09:40)
[2024-10-06] MEDS: BUPIVACAINE LIPOSOME 266 MG/20 ML VIAL INJ (08:18)
[2024-10-06] MEDS: BUPIVACAINE 0.25% (PF) 60 ML, EPINEPHrine 0.3 MG INJ (08:19)
--- NOTE | 2024-10-06 08:25 | SUR.OPER ---
Supine on padded [place] table with bilateral legs secured in padded positioning boots and suspended in positioning spars, operative (right) leg in traction per surgeon. Head on one pillow. Arm on non-operative side secured on padded armboard <90 degrees abduction. Arm on operative side padded and resting across chest then secured with tape over sheet. Padded perineal post in place per surgeon.
[2024-10-06] MEDS: OXYCODONE IR 5 MG TABLET PO ×4 (10:25→20:26)
--- NOTE | 2024-10-06 10:44 | SUR.PHASEI ---
Left pupil slightly larger than right, Dr. Montilla notified. No new orders. Pupils are reactive.
--- NOTE | 2024-10-06 10:55 | SUR.PHASEI ---
Report called to Stefan
--- NOTE | 2024-10-06 11:13 | SUR.PHASEI ---
Patient transferred to the floor with her walker and two belongings bags. O2 sat 88-95% RA. Deep breaths encouraged. Otherwise, condition stable. Bedside report given to Stefan and student.
[2024-10-06] MEDS: CHLORTHALIDONE 25 MG TABLET 12.5 MG PO (11:28)
[2024-10-06] MEDS: LACTATED RINGERS 1,000 ML 100 ML IV (11:29)
--- NOTE | 2024-10-06 13:04 | OT.IPNOTE ---
Attempted OT eval and pt states not ready yet. Able to give pt anterior hip folder and encouraged her to try to get up when PT checks on her later. To check on pt tomorrow.
--- NOTE | 2024-10-06 13:35 | PT.IIE ---
Current Diagnoses Unilateral primary osteoarthritis, right hip (10/06/24) Surgery Performed Operation Date: 10/06/24 07:45 Actual Procedures p Total Hip Arthroplasty/Anterior Approach(Right) - Lois Scherer MD Surgical History (Last Updated 09/23/24 @ 13:55 by La Barlow RN) Anesthesia (01/2023) History of arthroplasty History of bilateral knee replacement (~1998) History of cardiac radiofrequency ablation (2017) History of cataract extraction (2017) History of hysterectomy (~1991) History of lumbosacral spine surgery (10/2023) Hx of appendectomy Hx of breast biopsy Hx of craniotomy (01/2023) Hx of tubal ligation Medical History (Last Updated 09/29/24 @ 07:58 by Nuha Ly, RN) Adrenal gland anomaly Anemia Atrial fibrillation (~2018) Carpal tunnel syndrome (~2013) Chicken pox (~1949) Chronic back pain (~2019) Chronic kidney disease COPD (chronic obstructive pulmonary disease) Degenerative lumbar spinal stenosis Depression (~1989) Difficult airway for intubation (~01/2023) Encounter for pre-operative cardiovascular clearance Encounter for wellness examination in adult History of tobacco use Hypertension Hypothyroidism Influenza Left shoulder strain Lumbar stenosis with neurogenic claudication Measles (~1948) Medicare annual wellness visit, subsequent Meningioma Mumps (~1949) Osteoarthritis (~1997) Overactive bladder Peripheral neuropathy Pre-diabetes Renal insufficiency Right hip pain Shoulder pain (~2019) Strain of piriformis muscle Urge incontinence Urinary incontinence (~2019) Physical Therapy Inpatient Evaluation/Re-Eval M1 PT/OT-IP Prior Functional Status Start: 10/06/24 14:35 Freq: NEEDED Status: Active Protocol: Document 10/06/24 13:35 AB (Rec: 10/06/24 14:50 AB [id number]) Medical Review Prior Functional Status Medical History Reviewed Yes Communication able to make needs known Mobility and Gait pt stated that she was modified independent without AD but occasionally uses a SPC depending on hip pain Social History Household Members spouse Living Arrangements House Number of Floors (Floors) One Floor Number of Stairs To Enter/Railing? 3 steps B rails to enter the house Home Environment Standard Height Toilet,Walk in Shower,Built-In Shower Seat Home Equipment Front Wheel Walker,Straight Cane,Raised Toilet Seat w/ Armrests,Shower Seat with Backrest,Grab Bars In Shower Additional Social History Comment spouse does not drive M2 PT-IP Current Condition Start: 10/06/24 14:35 Freq: NEEDED Status: Active Protocol: Document 10/06/24 13:35 AB (Rec: 10/06/24 14:50 AB [id number]) Physical Therapy Current Condition Current Condition Evaluation Date 10/06/24 Treatment Diagnosis s/p R DENISE anterior; difficulty in walking Onset Date 10/06/24 M3 PT-IP Subjective Start: 10/06/24 14:35 Freq: NEEDED Status: Active Protocol: Document 10/06/24 13:35 AB (Rec: 10/06/24 14:50 AB [id number]) Subjective Physical Therapy Visit Type Type Initial Evaluation Visit Start Time 13:35 Visit Stop Time 14:25 Number of SIDE LASTER STAPLE Visits 0 Physical Therapy Visit Comments Patient Comments agreeable to do PT Therapy Pain Assessment Pain When Pain Assessed At Rest Pain Present Pain Present Pain Reported Location Right hip Intensity 5 Scale Used Numeric (0 - 10) Pain Behaviors Guarding Pain Management Techniques Apply Cold,Distraction, Modification of Treatment,Re- positioning,Timing of Activity with Medications M4 PT-IP Mobility and Gait Start: 10/06/24 14:35 Freq: NEEDED Status: Active Protocol: Document 10/06/24 13:35 AB (Rec: 10/06/24 14:50 AB [id number]) PT-Bed Mobility Assessment Supine to Sit Supine to Sit Minimal Assistance,1 Person Assistance Sit to Supine Sit to Supine Moderate Assistance,1 Person Assistance PT-Transfer Assessment Sit to and From Stand Sit to and from Stand Minimal Assistance,Moderate Assistance,1 Person Assistance ,Use of Upper Extremities Equipment Transfer Assistive Device Gait Belt,Front Wheeled Walker Orthotic/Prosthetic Devices or Brace: No Transfers Transfer Destination Bedside Commode Transfer Technique Stand Step Pivot Transfer Ability Level of Assist Minimal Assistance,1 Person Assistance Comments Mobility Comments pt in bed and agreeable to do PT. obtained PLOF and home setup. educated pt on anterior hip precautions. 160 /73 pt completed supine to sit min A and cues for techniques. pt able to sit on EOB SBA. pt completed sit to stand mod A with unsteady initial standing and pt has to sit back down. pt stated that she needs to use the toilet. bedside commode positioned close to pt . pt completed sit to stand again min A and step transfer to bedside commode min A and cues using FWW. pt assisted with brief management. pt completed sit to stand from the bedside commode min A and ambulated in room using fWW min A and cues ~ 35 ft. pt requested to go back to bed. sit to supine mod A for elevating LE to bed. positioned pt in bed. call light and table placed within reach. Gait Assessment Gait Gait Assistance Required: Minimum Assistance Distance (Feet) 35 Able to Maintain Weight Bearing Status Yes During Gait Assistive Devices Assistive Device Gait Belt,Front Wheeled Walker Orthotic/Prosthetic Devices or Brace: Yes Gait Deviations General Gait Pattern Antalgic Factors Limiting Gait Function Factors Limiting Gait Function Decreased Activity Tolerance, Decreased Strength,Limited Range of Motion,Pain,Poor Balance,Poor Safety Awareness, Respiratory Distress PT-Balance Assessment Sitting Balance and Reactions Static Sitting Balance Ability Normal Dynamic Sitting Balance Ability Good Standing Balance and Reactions Static Standing Balance Ability Fair Dynamic Standing Balance Ability Fair Device Used FWW M5 PT-IP Objective Assessments Start: 10/06/24 14:35 Freq: NEEDED Status: Active Protocol: Document 10/06/24 13:35 AB (Rec: 10/06/24 14:50 AB [id number]) Orientation Orientation/Cognition Level of Alertness Alert Orientation Name,Place,Situation Language Function Ability No Deficits Noted Safety Awareness Decreased Safety Awareness Memory Description No Deficits Noted Strength Lower Extremity Strength Assessment Right Impaired Hip 3-/5 Knee 3+/5 Muscle Tone Muscle Tone WNL Yes M6 PT-IP Treatment Start: 10/06/24 14:35 Freq: NEEDED Status: Active Protocol: Document 10/06/24 13:35 AB (Rec: 10/06/24 14:50 AB [id number]) Physical Therapy Treatment Education Education Provided Precautions,Weight Bearing Status,Safety M7 PT-IP Assessment and Plan Start: 10/06/24 14:35 Freq: NEEDED Status: Active Protocol: Document 10/06/24 13:35 AB (Rec: 10/06/24 14:50 AB [id number]) PT Summary Assessment and Plan Potential Rehabilitation Potential Fair Status of Condition at Evaluation Evolving Summary Impairments Pain,ROM,Strength,Balance, Coordination,Sensation,Tone, Cognition,Bed Mobility, Transfers,Gait,Activity Tolerance Assessment Summary pt is an 78 y/o F s/p R DENISE anterior approach POD 0. pt has R hip anterior precautions and is WBAT. pt requiring min to mod A for bed mobility, min to mod A for sit to stand and min A for ambulation using FWW. pt stated that her spouse does not drive and cannot come in for caregiver training. will continue to assess progress for safe d/c plan. Goals Bed Mobility Goal Independent Transfer Goal Independent,Front Wheeled Walker Gait Goal Independent,Front Wheel Walker Gait Distance 150 Other Goals up/down 3 steps B rails SBA Days to Meet Goals 5 Frequency of Treatment Frequency Of Treatment Twice a Day Treatment Plan Physical Therapy Treatment Plan Bed Mobility Training,Transfer Training,Gait Training, Therapeutic Exercise,Balance Retraining,Post Op Education, Discharge Planning,Hot or Cold Pack,Neuromuscular Re-ed, Coordination Retraining,Manual Therapy Precautions Anterior Hip Precautions No Hip Extension,No Hip External Rotation Weight Bearing Status Weight Bearing Status Weight Bear as Tolerated Allowed Weight Bearing Amount (enter % RLE WBAT or #) (%) Recommendations To Nursing Amount of Assist Needed 1 Person Assist Discharge Recommendations PT Discharge Recommendations Home with Assistance,Home Health,Outpatient PT Transportation Needs at Discharge Private Vehicle,Wheelchair/ Cabulance
[2024-10-06] MEDS: ACETAMINOPHEN 325 MG TABLET 650 MG PO ×2 (14:53→20:26)
[2024-10-06] MEDS: LOSARTAN 50 MG TABLET PO (20:25)
[2024-10-06] MEDS: DOCUSATE 100 MG CAPSULE PO (20:25)
[2024-10-06] MEDS: LORazepam 0.5 MG TABLET PO (21:53)
[2024-10-07] MEDS: OXYCODONE IR 5 MG TABLET PO ×3 (02:08→09:10)
[2024-10-07] MEDS: ACETAMINOPHEN 325 MG TABLET 650 MG PO (04:14)
[2024-10-07] MEDS: LEVOTHYROXINE 50 MCG TABLET PO (05:53)
[2024-10-07 07:20] LABS: Hematocrit 31.3 % (36-46); Hemoglobin 10.5 g/dL (12.0-16.0)
--- NOTE | 2024-10-07 07:39 | P.DS_ITS ---
History of Present Illness History of Present Illness Date Patient Seen: 10/07/24 Time Patient Seen: 07:20 Chief complaint: R DENISE anterior *OPB* Narrative: The patient has had progressively worsening right hip pain with radiographic changes consistent with arthritis. Non-operative management has failed and the patient has requested total hip replacement. The risks, benefits and alternatives to surgery were discussed with the patient prior to proceeding. Risks discussed included, but were not limited to, failure to relieve pain, leg length discrepancy, dislocation, stiffness, infection, nerve damage, deep venous thrombosis, pulmonary embolism, stroke, coma, heart attack, permanent paralysis and , as well as the potential need for eventual revision of the prosthetic. Discharge Providers Provider Discharge Date: 10/07/24 Primary care physician: David Rangel DO Consults: 09/23/24 13:34 Consult to Anesthesiology Routine Comment: Consulting Provider: Anesthesiologist Reason for consultation: Surgeon request. 10/06/24 06:00 Consult to Anesthesiology Routine Comment: Consulting Provider: Anesthesiologist Reason for consultation: Regional block for post operative pain control Has provider been notified: No 10/06/24 10:55 Consult to Discharge Planning Routine Comment: Consult to Occupational Therapy Evaluate & Treat Comment: Physician Instructions: Evaluate and treat Consult to Physical Therapy Evaluate & Treat Comment: Physician Instructions: post op DENISE protocol Discharge provider: Roger Rodríguez PA-C Summary Hospital Course Discharge Diagnosis: Right hip OA Hospital Course: Procedure: Right total hip arthroplasty anterior approach Same procedure as scheduled: Yes Surgeon: Lois Scherer Candy Bar Attendant: Sindy Blackwell Anesthesia Type: General Operative Notes Findings: Severe right hip OA, adequate stability, adequate bone Closure Type: primary Prosthetic devices, grafts, tissues, transplants, or devices: Scherer and nephew R3 52, neutral poly liner,one 6.5 mm screw, polar stem standard size 1, 36 by +0 oxinium Estimated Blood Loss (mL): 250 Blood products transfused: none Status at Discharge Cognitive/behavioral status at discharge: oriented Functional status at discharge: uses cane/walker Overall status at discharge: patient is back to baseline Time Spent with Patient Time spent: Less than 30 minutes Exam Vital Signs (past 8 hours): Oxygen Delivery Method Room Air Oxygen Flow Rate 0 Narrative Exam Narrative: Patient's pain is controlled with oral medication. ?Pain is localized to surgical site. ?Patient declines any new numbness or tingling at the surgical extremity. ?Patient denies any shortness of breath, dizziness, light-headedness, nausea, vomiting, fever or chills. 5/5 strength in hip flexors, quadriceps, hamstrings, DF, PF, EHL bilaterally. Sensation to light touch intact throughout BLE. Calves soft, compressible, nontender. Dressing placed intraoperatively CDI. Resp Effort & Inspection: normal respiratory effort and able to speak in complete sentences Objective Labs 10/07/24 06:58 Labs: Laboratory Results - last 24 hr 10/07/24 06:58 Hgb 10.5 L Hct 31.3 L [facility] Medical History (Updated 09/29/24 @ 07:58 by Nuha Ly RN) Difficult airway for intubation (~01/2023) Renal insufficiency Left shoulder strain Right hip pain Lumbar stenosis with neurogenic claudication Encounter for wellness examination in adult Strain of piriformis muscle Anemia Chronic kidney disease Pre-diabetes Encounter for pre-operative cardiovascular clearance Hypothyroidism Meningioma Adrenal gland anomaly Urge incontinence Overactive bladder Influenza Degenerative lumbar spinal stenosis History of tobacco use Hypertension Osteoarthritis (~1997) Depression (~1989) Shoulder pain (~2019) Chronic back pain (~2019) Carpal tunnel syndrome (~2013) Mumps (~1949) Measles (~1948) Chicken pox (~1949) Peripheral neuropathy COPD (chronic obstructive pulmonary disease) Urinary incontinence (~2019) Atrial fibrillation (~2018) Medicare annual wellness visit, subsequent Surgical History (Updated 09/23/24 @ 13:55 by La Barlow, MARIO) History of cataract extraction (2017) Hx of craniotomy (01/2023) History of lumbosacral spine surgery (10/2023) History of cardiac radiofrequency ablation (2017) Hx of tubal ligation Hx of breast biopsy Hx of appendectomy Anesthesia (01/2023) History of arthroplasty History of hysterectomy (~1991) History of bilateral knee replacement (~1998) Family History Father Cancer Mother History of heart disease UTI (urinary tract infection) Brother History of heart disease Diabetes mellitus Gout Grandfather History of heart disease Grandfather Cancer Grandmother Cancer Social History marital status: number of children: 2 household members: spouse Smoking Status: Former smoker Tobacco: How many years used: 25 alcohol intake: current during the past year weight has: remained stable caffeine: Yes Type(s) of exercise: walking frequency: 1-2 times per week duration: 45-60 minutes/day Discharge Assessment & Plan Assessment and Plan Assessment: Status post Right total hip arthroplasty anterior approach Plan of Treatment: Discharge to home. ? Anterior Hip Pre-causions. Ambulate and weight bear as tolerated with assistive devices. ? Restart Pradaxa as prescribed for DVT prevention. ? Baseline pain relief with acetaminophen 500mg every 4 hours as needed. ?Patient has been prescribed oxycodone 5 mg every 4 ?hours as needed for breakthrough pain. ? Initiate physical therapy in the next 5-10 days. ? Keep dressing clean and dry. Keep dressing on until first office visit. If dressing becomes dirty or disrupted, replace with appropriate sized dressing. Follow up in clinic in 2 weeks for wound check. Contact clinic if there are any questions or concerns. Discharge Plan Discharge Plan Patient Disposition: Home Discharge orders & Medications Discharge Orders: Discharge (Order); Ordered 10/07/24 Ordered By: Roger Rodríguez Prescriptions: Continued chlorthalidone 25 mg tablet 12.5 mg PO QAM tramadol 50 mg tablet 50 mg PO TID PRN (Reason: pain) Qty: 90 0RF celecoxib [Celebrex] 200 mg capsule 200 mg PO DAILY Qty: 90 2RF Rx Instructions: no meloxicam with pradaxa - take celebrex instead dabigatran etexilate [Pradaxa] 110 mg capsule 110 mg PO BID venlafaxine 225 mg tablet extended release 24hr 225 mg PO DAILY Qty: 90 2RF metoprolol succinate 100 mg tablet extended release 24 hr 100 mg PO DAILY losartan 50 mg tablet 50 mg PO BID Qty: 180 0RF levothyroxine 50 mcg tablet 50 mcg PO DAILY No Action lorazepam 0.5 mg tablet 0.5 mg PO BEDTIME PRN (Reason: Sleep) Follow up/Referrals: David Rangel DO [Primary Care Provider] - Lois Scherer MD [Physician] - 10/16/24 4:00 pm (Follow up w/ GONZALO Redd, at [facility] office in [place].) Diet/Activity/Treatments Diet: Diet as Tolerated Activity: Weightbearing as tolerated. Anterior hip precautions. Cold/Heat Therapy: Ice to right hip as needed for pain. Skin/Wound/Dressing Care Report to your healthcare provider any signs of infection, such as:: chills, fever, night sweats, unusual drainage and unusual redness Dressing: May shower. Leave Aquacel dressing in place until follow up in office. No bathing or otherwise soaking incision. Call the office if the dressing becomes saturated inside. Visit Report/Discharge Packet Stand Alone Forms: Patient Portal/API, Surgery Discharge Discharge Data Primary Care Provider: David Rangel Attending Provider: Lois Scherer VTE Deep Vein Thrombosis/Pulmonary Embolism Present on Admission: No
[2024-10-07 08:35] VITALS: BP 153/55; PULSE 57; RESP 16; TEMP 36.1; O2SAT 95
[2024-10-07] MEDS: VENLAFAXINE ER 75 MG CAP 225 MG PO (09:10)
[2024-10-07] MEDS: CELECOXIB 200 MG CAPSULE PO (09:11)
[2024-10-07] MEDS: DOCUSATE 100 MG CAPSULE PO (09:11)
[2024-10-07] MEDS: CHLORTHALIDONE 25 MG TABLET 12.5 MG PO (09:11)
--- NOTE | 2024-10-07 09:25 | PT.IPTN ---
Current Diagnoses Unilateral primary osteoarthritis, right hip (10/06/24) Surgery Performed Operation Date: 10/06/24 07:45 Actual Procedures p Total Hip Arthroplasty/Anterior Approach(Right) - Lois Scherer MD Physical Therapy Treatment Note M2 PT-IP Current Condition Start: 10/06/24 14:35 Freq: NEEDED Status: Active Protocol: Document 10/06/24 13:35 AB (Rec: 10/06/24 14:50 AB [id number]) Physical Therapy Current Condition Current Condition Evaluation Date 10/06/24 Treatment Diagnosis s/p R DENISE anterior; difficulty in walking Onset Date 10/06/24 M3 PT-IP Subjective Start: 10/06/24 14:35 Freq: NEEDED Status: Active Protocol: Document 10/07/24 09:25 AB (Rec: 10/07/24 12:54 AB [id number]) Subjective Physical Therapy Visit Type Type Treatment Note Visit Start Time 09:25 Visit Stop Time 09:55 Number of ACCOUNTING ASSISTANT Visits 0 Physical Therapy Visit Comments Patient Comments agreeable to do PT Therapy Pain Assessment Pain When Pain Assessed At Rest Pain Present Pain Present Pain Reported Location Right hip Intensity 3 Scale Used Numeric (0 - 10) Pain Management Techniques Apply Cold,Distraction, Modification of Treatment,Re- positioning,Timing of Activity with Medications M4 PT-IP Mobility and Gait Start: 10/06/24 14:35 Freq: NEEDED Status: Active Protocol: Document 10/07/24 09:25 AB (Rec: 10/07/24 12:54 AB [id number]) PT-Bed Mobility Assessment Supine to Sit Supine to Sit Standby Assistance Sit to Supine Sit to Supine Standby Assistance PT-Transfer Assessment Sit to and From Stand Sit to and from Stand Standby Assistance,1 Person Assistance,Use of Upper Extremities Equipment Transfer Assistive Device Gait Belt,Front Wheeled Walker Orthotic/Prosthetic Devices or Brace: No Comments Mobility Comments pt in bed and agreeable to do PT. reviewed hip precautions and pt recalled 2/2. pt completed supine to sit SBA. sit to stand SBA and ambulated in the hallway using FWW ~ 100 ft SBA. stair climbing training. educated pt on how to do stairs. pt completed up/down steps using B rails CGA. pt's spouse cannot come in for training and pt stated that she can tell his spouse on how to assist her if needed. assisted pt back to her room and requested to go back to bed. ambulated from w/c to bed using fWW SBA. completed sit to supine SBA. positioned pt in bed. call light and table placed within reach. Gait Assessment Gait Gait Assistance Required: Standby Assistance Distance (Feet) 100 Able to Maintain Weight Bearing Status Yes During Gait Assistive Devices Assistive Device Gait Belt,Front Wheeled Walker Orthotic/Prosthetic Devices or Brace: No Gait Deviations General Gait Pattern Antalgic,Decreased Stride Length,Decreased Feet Clearance,Step-to Gait Factors Limiting Gait Function Factors Limiting Gait Function Decreased Activity Tolerance, Decreased Strength,Difficulty Following Directions,Limited Range of Motion,Pain,Poor Balance,Poor Safety Awareness Stair Climbing Assessment Evaluation Level of Assist On Stairs Contact Guard Assistance,1 Person Assistance Devices Stair Climbing Assistive Devices Left Railing,Right Railing Technique/Endurance Stair Climbing Direction Ascend and Descend Stair Climbing Technique Step to Step Number of Steps Climbed 3 Stair Climbing Set # Repetitions (reps) 1 M5 PT-IP Objective Assessments Start: 10/06/24 14:35 Freq: NEEDED Status: Active Protocol: Document 10/06/24 13:35 AB (Rec: 10/06/24 14:50 AB [id number]) Orientation Orientation/Cognition Level of Alertness Alert Orientation Name,Place,Situation Language Function Ability No Deficits Noted Safety Awareness Decreased Safety Awareness Memory Description No Deficits Noted Strength Lower Extremity Strength Assessment Right Impaired Hip 3-/5 Knee 3+/5 Muscle Tone Muscle Tone WNL Yes M6 PT-IP Treatment Start: 10/06/24 14:35 Freq: NEEDED Status: Active Protocol: Document 10/07/24 09:25 AB (Rec: 10/07/24 12:54 AB [id number]) Physical Therapy Treatment Education Education Provided Precautions,Weight Bearing Status,Safety M7 PT-IP Assessment and Plan Start: 10/06/24 14:35 Freq: NEEDED Status: Active Protocol: Document 10/07/24 09:25 AB (Rec: 10/07/24 12:54 AB [id number]) PT Summary Assessment and Plan Potential Rehabilitation Potential Good Summary Impairments Pain,ROM,Strength,Balance, Coordination,Sensation,Tone, Cognition,Bed Mobility, Transfers,Gait,Activity Tolerance Progress Towards Goals Progressing Toward Goals Assessment Summary pt requiring SBA with mobility using fWW and CGA with stair climbing. pt will have her spouse to assist her at home. pt plans to go home today. Goals Bed Mobility Goal Independent Transfer Goal Independent,Front Wheeled Walker Gait Goal Independent,Front Wheel Walker Gait Distance 150 Other Goals up/down 3 steps B rails SBA Days to Meet Goals 5 Frequency of Treatment Frequency Of Treatment Twice a Day Treatment Plan Physical Therapy Treatment Plan Bed Mobility Training,Transfer Training,Gait Training, Therapeutic Exercise,Balance Retraining,Post Op Education, Discharge Planning,Hot or Cold Pack,Neuromuscular Re-ed, Coordination Retraining,Manual Therapy Precautions Anterior Hip Precautions No Hip Extension,No Hip External Rotation Weight Bearing Status Weight Bearing Status Weight Bear as Tolerated Allowed Weight Bearing Amount (enter % RLE WBAT or #) (%) Recommendations To Nursing Amount of Assist Needed 1 Person Assist Discharge Recommendations PT Discharge Recommendations Home with Assistance,Home Health,Outpatient PT Transportation Needs at Discharge Private Vehicle,Wheelchair/ Cabulance
--- NOTE | 2024-10-07 10:42 | CM.DANOTE ---
Initial DCP Assessment Visit Note Reviewed EMR and team rounds for status updates. Met with pt at bedside to introduce self and role, pt was found to be alert/oriented, comfortable, and able to discuss her plan for d/c home. Pt lives modified independently with her in their own home in [place]. She plans to to take a taxi home. She currently denies any CM d/c assistance or resource needs at this time. Payor: [facility] Adv Attending: Dr. Lois Scherer Pt is a 78 year-old F post-op day 1 from a R-total hip arthroplasty surgery. She is doing very well with therapies, and has had no postoperative complications. Pt has a hx of worsening R-hip pain over the last year, now with the pain interfering with walking and doing her daily ADL's. She's tried conservative efforts such as PT and NSAIDS, however has not had any lasting relief. Pt does have a plan for OP PT, and has all of the DME at home that she will need for recovery needs. She has a friend and her spouse who will help her with continued home assistance needs. Discharge Planning/Care Management Advanced directive, confirm from FAMILY Start: 10/06/24 11:22 Freq: Q24H Status: Active Protocol: Document 10/06/24 11:43 BT (Rec: 10/06/24 11:45 BT [id number]) Co-signed By Tanner Araujo RN Advance Directive, confirm on record Time 11:45 Person contacted Pt Copy received No CM Discharge Assessment Start: 10/07/24 10:39 Freq: Status: Active Protocol: Document 10/07/24 10:39 DPL (Rec: 10/07/24 10:41 DPL [id number]) Discharge Planning Assessment Assigned Manager Facility NIS[facility] Davis Advance Directives? Yes Advance Directives on File No History Provided By Patient,Medical Record Has Patient been admitted in last 30 No days? Prior Living Arrangements House Household Members spouse Type of transporation used prior to Drives own vehicle admit Independent with ADL's No: mod indep. w/cane as needed Is patient alert and oriented? Yes Comment N/A Caregiver for Another No Community Services used prior to Physical Therapy admission: DME Already Rented / Owned Bath Bench,Elevated Toilet Seat,FWW / Walker,Cane Clinicals Faxed No Patient/Family Preference OP PT Therapy Barriers to Discharge No Discharge Plan Home Transportation Arrangement Taxi Referrals Initiated None needed Whiteboard Updated in Patient Room with Yes name and ext. # of Manager Facility Review Status In Process Please Provide Date Initial DC 10/07/24 Assessment Was Performed Pre-Anesthesia Assessment Start: 09/23/24 12:22 Freq: Status: Active Protocol: Document 09/23/24 12:22 LB (Rec: 09/23/24 13:29 LB [id number]) Pre-Anesthesia Assessment PAC Comment 09/23/24 Phone assessment. Patient Information Reviewed Via Phone Assessment Assessment Completed With Patient Diagnostic Results BMP/CMP,CBC,EKG,Urinalysis Comment 08/31/24 labs at . 05/27 EKG at . Primary Care Provider David Rangel Seen Specialist in Last 12 Months Yes Specialist Seen Surgical Supplies Sterilizer,Orthopedist Primary Language Thai Preferred Language Thai Supervisor Heat Treating Required No Height 167.64 cm Weight 85.275 kg Body Mass Index (BMI) 30.3 Hearing Ability Normal Visual Assist Glasses Dentition Type Teeth, Natural Present Barriers to Learning None Other Aids No Hx Anesthesia Reactions No: Difficult intubation. Hx Family Anesthesia Reaction No Hx Malignant Hyperthermia No Hx Blood Transfusions Yes Hx Blood Transfusion Reaction No Anesthesia Review Requested Yes: Per surgeon request. Nursing Home Manager No alcohol intake current alcohol intake frequency a few times a week Smoking Status Former smoker Tobacco type cigarettes how long ago did patient quit smoking Quit 1987. Substance Use Type [#R] does not use Pain Present Pain Reported Comment Right hip Musculoskeletal Symptoms Back Pain,Difficulty Walking, Joint Pain History of Falling (Recent or History of Yes ) Comment Prior to craniotomy. Patient is completely paralyzed or No completely immobile Prosthesis or Orthotic Device Cane Mental Status Oriented to own ability Comment Will bring walker. Is patient on oxygen? No Does patient have THEODORE/SOB No Hx Sleep Apnea No CPAP/BIPAP use not prescribed Currently Taking a Beta Hillary Yes: Metoprolol 100 mg daily. Can You Climb a Flight of Stairs Without Yes SOB Hx Chest Pain No Hx SOB Yes: R/T a-fib. Anti-Coagulant Therapy Yes: Pradaxa 110mg BID. Has a Surgical Supplies Sterilizer Yes Surgical Supplies Sterilizer name Dr Loya Cardiac Testing Yes: 07/06/24 NM stress test; 08/14/24 echo. Hx Pacemaker/ICD No Cardiac Clearance Received Yes Dysphagia No Gastrointestinal Symptoms Constipation Bladder Pattern Incontinent, Stress,Nocturia Urinary Catheter Present No Hx Urinary Self Catheterization No Comment Uses pads. Diabetes No HgbA1C 5.3 Date 08/31/24 Comment A1c 5.3 08/31/24. Patient No Lactating No Hx Drug Resistant Organism No Presence of External or Internal Medical Yes: Bilat knees, bilat Devices cataracts, suboccipital netting. Have you had any close contact with No someone diagnosed with COVID-19? Are you experiencing any of these No symptoms symptoms? Received a COVID vaccine? Yes Comment Denies covid last 2 weeks. Marital Status Lives With spouse Current Living Arrangements House Number of Floors (Floors) One Floor Number of Stairs To Enter/Railing? 3 stairs with railing to enter . Support System Friend(s),Spouse Does the Patient Have Assistance After Yes Surgery Patient Discharge Plan Description Return Home Additional comment Advised same day surgery. Feels Safe in Current Environment Yes Do you have a plan to hurt yourself or No Plan others? Do You Have Any Spiritual Beliefs That No May Affect Your HC Choices? Do You Have Any Cultural Practices That No May Affect Your HC Choices? Emergency Contact Name Luis Fernandezer - Emergency Contact [phone] cell Advance Directives? Yes Advance Directives on File No Requested Patient Bring Advanced Yes Directives DOS PAC Instructions Assistance for 24 hours post- op,Durable medical equipment, Medications to take/avoid, Nasal antibiotic,No ETOH/ petroleum product on skin DOS, NPO,Post-op transportation,Pre -surgical wash,Sensory aids, Sturdy shoes/comfortable clothes,Do not bring valuables and remove jewelry Document 09/29/24 07:51 CAB (Rec: 09/29/24 07:52 CAB [id number]) Pre-Anesthesia Assessment PAC Comment 09/23/24 Phone assessment. Difficult intubation w/ craniotomy, resection of tumor 02/08/23. Anesthesia record scanned and in surgery folder Patient Information Reviewed Via Phone Assessment Assessment Completed With Patient Diagnostic Results BMP/CMP,CBC,EKG,Urinalysis Comment 08/31/24 labs at . 05/27 EKG at . Primary Care Provider David Rangel Seen Specialist in Last 12 Months Yes Specialist Seen Surgical Supplies Sterilizer,Orthopedist Primary Language Thai Preferred Language Thai Supervisor Heat Treating Required No Height 167.64 cm Weight 85.275 kg Body Mass Index (BMI) 30.3 Hearing Ability Normal Visual Assist Glasses Dentition Type Teeth, Natural Present Barriers to Learning None Other Aids No Hx Anesthesia Reactions No: Difficult intubation w/ craniotomy, resection of tumor 02/08/23 Additional comment Anesthesia record scanned and in surgery folder Hx Family Anesthesia Reaction No Hx Malignant Hyperthermia No Hx Blood Transfusions Yes Hx Blood Transfusion Reaction No Anesthesia Review Requested Yes: Surgeon request re: Difficult intubation Nursing Home Manager No alcohol intake current alcohol intake frequency a few times a week Smoking Status Former smoker Tobacco type cigarettes how long ago did patient quit smoking Quit 1987. Substance Use Type [#R] does not use Pain Present Pain Reported Comment Right hip Musculoskeletal Symptoms Back Pain,Difficulty Walking, Joint Pain History of Falling (Recent or History of Yes ) Comment Prior to craniotomy. Patient is completely paralyzed or No completely immobile Prosthesis or Orthotic Device Cane Mental Status Oriented to own ability Comment Will bring walker. Is patient on oxygen? No Does patient have THEODORE/SOB No Hx Sleep Apnea No CPAP/BIPAP use not prescribed Currently Taking a Beta Hillary Yes: Metoprolol 100 mg daily. Can You Climb a Flight of Stairs Without Yes SOB Hx Chest Pain No Hx SOB Yes: R/T a-fib. Anti-Coagulant Therapy Yes: Pradaxa-pt aware to hold 3 days per Cardiology Has a Surgical Supplies Sterilizer Yes: Visit 09/02/[address] Loya Cardiac Testing Yes: 07/06/24 NM stress test; 08/14/24 echo. Hx Pacemaker/ICD No Cardiac Clearance Received Yes Comment Cardiac records scanned and in surgery folder Dysphagia No Gastrointestinal Symptoms Constipation Bladder Pattern Incontinent, Stress,Nocturia Urinary Catheter Present No Hx Urinary Self Catheterization No Comment Uses pads. Diabetes No HgbA1C 5.3 Date 08/31/24 Comment A1c 5.3 08/31/24. Patient No Lactating No Hx Drug Resistant Organism No Presence of External or Internal Medical Yes: Bilat knees, bilat Devices cataracts, suboccipital netting. Have you had any close contact with No someone diagnosed with COVID-19? Are you experiencing any of these No symptoms symptoms? Received a COVID vaccine? Yes Comment Denies covid last 2 weeks. Marital Status Lives With spouse Current Living Arrangements House Number of Floors (Floors) One Floor Number of Stairs To Enter/Railing? 3 stairs with railing to enter . Support System Friend(s),Spouse Does the Patient Have Assistance After Yes Surgery Patient Discharge Plan Description Return Home Additional comment Advised same day surgery. Feels Safe in Current Environment Yes Do you have a plan to hurt yourself or No Plan others? Do You Have Any Spiritual Beliefs That No May Affect Your HC Choices? Do You Have Any Cultural Practices That No May Affect Your HC Choices? Emergency Contact Name Luis [place] - Emergency Contact [phone] cell Advance Directives? Yes Advance Directives on File No Requested Patient Bring Advanced Yes Directives DOS PAC Instructions Assistance for 24 hours post- op,Durable medical equipment, Medications to take/avoid, Nasal antibiotic,No ETOH/ petroleum product on skin DOS, NPO,Post-op transportation,Pre -surgical wash,Sensory aids, Sturdy shoes/comfortable clothes,Do not bring valuables and remove jewelry
--- NOTE | 2024-10-07 11:19 | OT.IP.EVAL ---
Current Diagnoses Unilateral primary osteoarthritis, right hip (10/06/24) Surgery Performed Operation Date: 10/06/24 07:45 Actual Procedures p Total Hip Arthroplasty/Anterior Approach(Right) - Lois Scherer MD Past Medical History (Last Updated 09/29/24 @ 07:58 by Nuha Ly, RN) Adrenal gland anomaly Anemia Atrial fibrillation (~2018) Carpal tunnel syndrome (~2013) Chicken pox (~1949) Chronic back pain (~2019) Chronic kidney disease COPD (chronic obstructive pulmonary disease) Degenerative lumbar spinal stenosis Depression (~1989) Difficult airway for intubation (~01/2023) Encounter for pre-operative cardiovascular clearance Encounter for wellness examination in adult History of tobacco use Hypertension Hypothyroidism Influenza Left shoulder strain Lumbar stenosis with neurogenic claudication Measles (~1948) Medicare annual wellness visit, subsequent Meningioma Mumps (~1949) Osteoarthritis (~1997) Overactive bladder Peripheral neuropathy Pre-diabetes Renal insufficiency Right hip pain Shoulder pain (~2019) Strain of piriformis muscle Urge incontinence Urinary incontinence (~2019) Surgical History (Last Updated 09/23/24 @ 13:55 by La Barlow RN) Anesthesia (01/2023) History of arthroplasty History of bilateral knee replacement (~1998) History of cardiac radiofrequency ablation (2017) History of cataract extraction (2017) History of hysterectomy (~1991) History of lumbosacral spine surgery (10/2023) Hx of appendectomy Hx of breast biopsy Hx of craniotomy (01/2023) Hx of tubal ligation Occupational Therapy Inpatient Evaluation/Re-Eval M1 PT/OT-IP Prior Functional Status Start: 10/06/24 14:35 Freq: NEEDED Status: Active Protocol: Document 10/07/24 11:00 KANDI (Rec: 10/07/24 11:18 ZORAIDAMSJOHANNE [id number]) Medical Review Prior Functional Status Medical History Reviewed Yes Communication able to make needs known Mobility and Gait pt stated that she was modified independent without AD but occasionally uses a SPC depending on hip pain Activities of Daily Living and IADL's pt has ehs manager 1x/month, otherwise pt performs all housework and BADL. pt was mod I with community mobility. pt has a small dog which she walks daily. Social History Household Members spouse Living Arrangements House Number of Floors (Floors) One Floor Number of Stairs To Enter/Railing? 3 steps B rails to enter the house Home Environment Standard Height Toilet,Walk in Shower,Built-In Shower Seat Home Equipment Front Wheel Walker,Straight Cane,Raised Toilet Seat w/ Armrests,Shower Seat with Backrest,Grab Bars In Shower Additional Social History Comment spouse does not drive M2 OT-IP Current Condition Start: 10/07/24 11:00 Freq: Status: Active Protocol: Document 10/07/24 11:00 KANDI (Rec: 10/07/24 11:18 [email or web address] [id number]) Occupational Therapy Current Condition Current Condition Evaluation Date 10/07/24 Treatment Diagnosis R DENISE anterior Diagnosis Onset Date 10/06/24 Post Operative Precautions Anterior Hip Precautions No Hip Extension,No Hip External Rotation Weight Bearing Status Weight Bearing Status Weight Bear as Tolerated Allowed Weight Bearing Amount (enter % RLE WBAT or #) (%) M3 OT- IP Subjective and Pain Start: 10/07/24 11:00 Freq: Status: Active Protocol: Document 10/07/24 11:00 KANDI (Rec: 10/07/24 11:18 ZORAIDAMSJOHANNE [id number]) OT- Subjective Occupational Therapy Visit Type Type Initial Evaluation Visit Start Time 10:20 Visit Stop Time 10:50 Notes Pt is pleasant and cooperative . Pt reclined in bed and willing to participate in OT eval. Occupational Therapy Visit Comments Patient Comments Pt states I am looking forward to walking my dog again. OT Pain Assessment Pain When Pain Assessed At Rest Pain Present Pain Present Denied Pain Location Right hip Intensity 3 Scale Used Numeric (0 - 10) Description Aching M4 OT- IP ADL's Start: 10/07/24 11:00 Freq: Status: Active Protocol: Document 10/07/24 11:00 KANDI (Rec: 10/07/24 11:18 ZORAIDAMSJOHANNE [id number]) OT [id number] Comments OT Self-Feeding Comments not observed OT ADL-Grooming General Evaluation Grooming Ability Standby Assistance Comments OT Grooming Comments pt performs sink side with set up of items and no other assistance OT ADL-Oral Care General Eval Oral Care Ability Independent Comments Oral Care Comments pt performs sink side and is able to gather items from around sink without assistance . OT ADL-Dressing General Eval Upper Body Dressing Ability Standby Assistance Lower Body Dressing Ability Standby Assistance Areas Needing Assistance Retrieving/Set-up of Clothing Assistive Devices Dressing Assistive Devices Sock Aid Comments OT Dressing Comments pt performs dressing while sitting EOB. Pt requires OT to gather items but is otherwise able to dress herself. Pt demonstrates correct use of sock aid when donning her socks. OT ADL-Toileting General Evaluation Toileting Ability Standby Assistance Comments OT Toileting Comments pt is able to manage clothing slowly and manages hygiene OT ADL-Bathing Comments OT Bathing Comments pt declined at time of eval M5 OT- IP IADL's Start: 10/07/24 11:00 Freq: Status: Active Protocol: Document 10/07/24 11:00 KANDI (Rec: 10/07/24 11:18 [facility] [id number]) OT-Instrumental Activities of Daily Living Home Safety Awareness Awareness of Need for Assistance at Home Good Awareness Medication Management Medication Management No Deficits Identified Money Management Money Management No Deficits Identified Meal Preparation Meal Preparation Comments pt has purchased easy meals that can be warmed in the oven or microwave on d/c Court [place] Appeals Judge Court [place] Appeals Judge Comments pt reports her spouse will assist Driving Driving Comments pt reports she will be using paratransit or friends for transportation needs on d/c M6 OT- IP Functional Cognition Start: 10/07/24 11:00 Freq: Status: Active Protocol: Document 10/07/24 11:00 KANDI (Rec: 10/07/24 11:18 [facility] [id number]) Cognitive Factors Limiting Selfcare Function Cognitive Ability Level of Alertness Alert Patient Orientation Name,Age,Birthday,Month,Date, Year,Day of Week,Place, Situation Attention Span Ability Capable of Focused Attention, Capable of Sustained Attention Ability to Follow Commands Able to Follow Multi-Step Commands Memory Description No Deficits Noted Safety Awareness No Deficits Noted Problem Solving Ability No deficits Noted Executive Function Ability No Deficits Noted Abstract Thinking Ability No Deficits Noted OT- Vision and Hearing OT- Hearing Assessment OT- Hearing Assessment WFL OT- Vision Assessment Visual Acuity Glasses All The Time M7 OT- IP Mobility and Balance Start: 10/07/24 11:00 Freq: Status: Active Protocol: Document 10/07/24 11:00 KANDI (Rec: 10/07/24 11:18 [facility] [id number]) OT- Bed Mobility Assessment Supine to Sit Supine to Sit Assist Contact Guard Assistance Sit to Supine Sit to Supine Assist Standby Assistance Scooting Scooting to Edge of Bed Independent Scooting Up and Down in Bed Independent OT-Transfer Assessment Sit to and From Stand Sit to and from Stand Standby Assistance,Use of Upper Extremities Transfers Transfer Ability Standby Assistance Technique Transfer Technique Stand Step Pivot Devices Transfer Assistive Devices Gait Belt,Front Wheeled Walker OT- Gait Assessment Gait Gait Assistance Required: Standby Assistance Distance (Feet) 35 Able to Maintain Weight Bearing Status Yes During Gait Assistive Devices Assistive Device Gait Belt,Front Wheeled Walker Orthotic/Prosthetic Devices or Brace: Yes Comments Gait Ability Comments ambs with FWW throughout tx room for sink side ADLs and toileting. pt demonstrates good safety awareness. OT- Balance Assessment Sitting Balance and Reactions Static Sitting Balance Ability Normal Dynamic Sitting Balance Ability Good Standing Balance and Reactions Static Standing Balance Ability Good Dynamic Standing Balance Ability Good M8 OT- IP Objective Assessments Start: 10/07/24 11:00 Freq: Status: Active Protocol: Document 10/07/24 11:00 KANDI (Rec: 10/07/24 11:18 ZORAIDAMSJOHANNE [id number]) OT Gross Range of Motion Upper Extremity Range of Motion Assessment Within Functional Limits ROM Impairments Pt has approximately 145-160 deg of shoulder flexion/ abduction, otherwise WFL OT Strength Upper Extremity Strength Assessment Within Functional Limits Shoulder R 4- L 3+ Elbow B 4 Hand Extra Hand Strength Hand Dominance Right OT-Muscle Tone Assessment Muscle Tone WNL Yes M9 OT- IP Assessment and Plan Start: 10/07/24 11:00 Freq: Status: Active Protocol: Document 10/07/24 11:00 KANDI (Rec: 10/07/24 11:18 ZORAIDAMSJOHANNE [id number]) OT Summary Assessment and Plan Potential Rehabilitation Potential Excellent Analytic Complexity at Evaluation Low Summary OT Impairments Pain,Grooming,Dressing, Toileting,Bathing,Activity Tolerance Progress Towards Goals Progressing Toward Goals Assessment Summary Pt is an 78 yo F who underwent R DENISE anterior approach on 07/20. Pt lives with her spouse and small dog. Pt was primarily mod I prior to sx with home tasks, community mobility, and BADLs. Pt will rely on paratransit and friends for community mobility as pts spouse does not drive. Pt is able to state and demonstrate her hip precautions. Pt is scheduled for outpt PT next week. Pt demonstrates correct use of LB AE and reports she has been using these for some time. Pt demonstrates BADLs with setup and functional mobility with SBA-CGA. Pt demonstrates good safety awareness as well. Pt is appropriate for d/c home and to start out pt PT, no skilled OT services are indicated at this time as pt is functioning at or near baseline. Frequency of Treatment Frequency Of Treatment Discharge Discharge Recommendations OT Discharge Recommendations Home,Outpatient PT Transportation Needs at Discharge Private Vehicle
== END 2024-10-07 12:00 | disposition home or self-care (01) ==
LOC: OR 05:55 → AC 05:57
PROVIDERS: PCP Family Medicine; Referring Provider Orthopaedic Surgery; Visit Provider Orthopaedic Surgery
PROC: (CPT 27130; principal; 2024-10-06 07:45)
DX: M16.11 Unilateral primary osteoarthritis, right hip (principal); M25.751 Osteophyte, right hip; I48.91 Unspecified atrial fibrillation; Z79.01 Long term (current) use of anticoagulants; Z87.891 Personal history of nicotine dependence
CPT/HCPCS: 27130; 36415; 73502; 76000; 85014; 85018; 97116; 97162; 97165; 97530; 97535; C1776; C1713; J0171; J0330; J0666; J0690; J1100; J1171; J2405; J2704; J3010

== ENCOUNTER 2025-01-15 16:18 | Emergency (ER) | payer OTHER, SELFPAY ==
[2024-10-06 06:37] VITALS: BMI 29.7
[2025-01-15 16:24] VITALS: BP 124/58; PULSE 68; RESP 18; TEMP 36.7; O2SAT 97; BMI 28.4
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
[2025-01-15] MEDS: BACITRACIN OINT 0.9 GM PCKT 3 APPLIC TOP (18:53)
[2025-01-15 19:50] VITALS: BP 168/86; PULSE 55; RESP 16; O2SAT 98
== END 2025-01-15 19:58 | disposition home or self-care (01) ==
PROVIDERS: Emergency Provider Physician Assistant; PCP Family Medicine
DX: T20.10XA Burn of first degree of head, face, and neck, unspecified site, initial encounter (principal); T23.16 Burn of first degree of back of hand; X08.8XXA Exposure to other specified smoke, fire and flames, initial encounter
CPT/HCPCS: 99282

== ENCOUNTER 2025-03-19 20:09 | Emergency (ER) | payer OTHER, SELFPAY ==
[2024-10-06 06:37] VITALS: BMI 29.7
[2025-03-19 20:58] VITALS: BP 186/79; PULSE 58; RESP 18; TEMP 36.8; O2SAT 100; BMI 28.2
[2025-03-19] MEDS: BACITRACIN OINT 0.9 GM PCKT 1 APPLIC TOP (23:45)
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
== END 2025-03-20 00:10 | disposition left against medical advice (07) ==
PROVIDERS: Emergency Provider Emergency Medicine; PCP Family Medicine
DX: S61.214A Laceration without foreign body of right ring finger without damage to nail, initial encounter (principal)
CPT/HCPCS: 99283

== ENCOUNTER 2025-06-26 12:14 | Emergency (ER) | payer OTHER, SELFPAY ==
[2024-10-06 06:37] VITALS: BMI 29.7
[2025-06-26] VITALS (13 sets, daily range): BP systolic 178–221; BP diastolic 83–89; PULSE 49–64; RESP 12–31; TEMP 36.5; O2SAT 92–98; BMI 27.4
--- NOTE | 2025-06-26 12:34 | EKG_ITS ---
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
--- NOTE | 2025-06-26 13:04 | DI.RAD.S_ITS ---
PROCEDURE: XR CHEST 1V INDICATIONS: chest pain TECHNIQUE: One view of the chest was acquired. COMPARISON: [facility], CR, XR CHEST 1V, 04/24/2024, 22:06. FINDINGS: Surgical changes and devices: None. Lungs and pleura: Lungs are clear. No pleural effusions or pneumothorax. Mediastinum: Mediastinal contours appear normal. Heart size is normal. Bones and chest wall: No suspicious bony lesions. Overlying soft tissues appear unremarkable. IMPRESSION: No acute cardiopulmonary abnormality is seen. Approved by: Dada Hutchinson M.D. on 06/26/2025 at 14:02
[2025-06-26 13:17] LABS: Add Manual Diff / Slide Review NO; Hematocrit 31.8 % (36-46); Hemoglobin 10.7 g/dL (12.0-16.0); Lymphocytes Absolute Auto 1200 /uL (1100-4500); Mean Corpuscular HGB Conc 33.8 % (30-36); Mean Corpuscular Hemoglobin 30.0 PG (26-34); Mean Corpuscular Volume 88.8 fL (80-100); Platelet Count 194 X10^3/uL (150-400)
[2025-06-26 13:28] LABS: Alanine Aminotransferase 14 IU/L (<35); Albumin 3.7 g/dL (3.5-5.0); Albumin Globulin Ratio 1.4 (1.0-2.8); Alkaline Phosphatase 88 U/L (38-126); Blood Urea Nitrogen 31 mg/dL (7-17); Calcium 9.8 mg/dL (8.4-10.2); Carbon Dioxide 28 mmol/L (22-32); Chloride 104 mmol/L (98-107); Estimated Glomerular Filt Rate 57 mL/min (>60); Globulin 2.6 g/dL (1.7-4.1); Glucose 90 mg/dL (70-99); HEMOLYSIS < 15 (0-50); Lipase 59 U/L (23-300); Magnesium 2.4 mg/dL (1.6-2.3); Potassium 3.8 mmol/L (3.4-5.1); Sodium 137 mmol/L (137-145); Total Protein 6.3 g/dL (6.3-8.2)
[2025-06-26 13:40] LABS: NT-proBNP (BNP-Adult 18+) 1070 pg/mL (<450); Troponin I < 0.012 ng/mL (0.01-0.034)
[2025-06-27 06:36] LABS: Labcorp Creatine Kinase MB 2.2 ng/mL (0.0-5.3)
== END 2025-06-26 14:38 | disposition home or self-care (01) ==
PROVIDERS: Emergency Provider Emergency Medicine; PCP Family Medicine
DX: I10 Essential (primary) hypertension (principal); R07.9 Chest pain, unspecified
CPT/HCPCS: 36415; 71045; 80053; 81003; 82553; 83690; 83735; 83880; 84484; 85025; 93005; 99283; 99284

== ENCOUNTER 2025-07-02 13:36 | Emergency (ER) | payer OTHER, SELFPAY ==
[2024-10-06 06:37] VITALS: BMI 29.7
[2025-07-02 13:45] VITALS: BP 156/71; PULSE 62; RESP 18; TEMP 37.1; O2SAT 100; BMI 28.3
--- NOTE | 2025-07-02 13:59 | EKG_ITS ---
[facility]
--- NOTE | 2025-07-02 14:01 | DI.RAD.S_ITS ---
PROCEDURE: XR CHEST 1V
--- NOTE | 2025-07-02 14:03 | ED_ITS ---
HPI - General Adult
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
[2025-07-02 14:07] LABS: Add Manual Diff / Slide Review NO; Hematocrit 32.5 % (36-46); Hemoglobin 10.8 g/dL (12.0-16.0); Lymphocytes Absolute Auto 1600 /uL (1100-4500); Mean Corpuscular HGB Conc 33.2 % (30-36); Mean Corpuscular Hemoglobin 29.7 PG (26-34); Mean Corpuscular Volume 89.4 fL (80-100); Platelet Count 226 X10^3/uL (150-400)
[2025-07-02 14:12] LABS: INR 1.2 (0.9-1.3); Prothrombin Time 13.5 SECONDS (9.4-12.5)
[2025-07-02 14:14] LABS: PTT Partial Thromboplastin Tim 61 SECONDS (25.1-36.5)
[2025-07-02 14:15] LABS: Alanine Aminotransferase 16 IU/L (<35); Albumin 4.1 g/dL (3.5-5.0); Albumin Globulin Ratio 1.6 (1.0-2.8); Alkaline Phosphatase 81 U/L (38-126); Blood Urea Nitrogen 35 mg/dL (7-17); Calcium 9.6 mg/dL (8.4-10.2); Carbon Dioxide 27 mmol/L (22-32); Chloride 105 mmol/L (98-107); Creatine Kinase 59 U/L (30-135); Estimated Glomerular Filt Rate 49 mL/min (>60); Globulin 2.6 g/dL (1.7-4.1); Glucose 112 mg/dL (70-99); HEMOLYSIS < 15 (0-50); Lipase 70 U/L (23-300); Magnesium 2.3 mg/dL (1.6-2.3); Potassium 3.4 mmol/L (3.4-5.1); Sodium 138 mmol/L (137-145); Total Protein 6.7 g/dL (6.3-8.2)
[2025-07-02 14:27] LABS: NT-proBNP (BNP-Adult 18+) 804 pg/mL (<450); Troponin I 0.012 ng/mL (0.01-0.034)
[2025-07-02 16:22] VITALS: BP 207/84; PULSE 72; RESP 16; O2SAT 98
[2025-07-02 16:54] LABS: Troponin I 0.013 ng/mL (0.01-0.034)
[2025-07-02 18:53] VITALS: BP 195/80; PULSE 60; RESP 18; O2SAT 98
== END 2025-07-02 18:57 | disposition home or self-care (01) ==
PROVIDERS: Family Medicine; Emergency Provider Emergency Medicine; PCP Family Medicine
DX: I10 Essential (primary) hypertension (principal)
CPT/HCPCS: 36415; 71045; 80053; 82550; 83690; 83735; 83880; 84484; 85025; 85610; 85730; 93005; 99283; 99284

== ENCOUNTER → 2025-07-05 16:07 | Outpatient (CLI) | payer OTHER, SELFPAY ==
[2024-10-06 06:37] VITALS: BMI 29.7
--- NOTE | 2025-07-05 16:08 | DI.CT.S_ITS ---
PROCEDURE: CT ABDOMEN ADRENAL PROTOCOL
== END ==
PROVIDERS: PCP Family Medicine; Referring Provider Family Medicine; Visit Provider Family Medicine
DX: Q89.1 Congenital malformations of adrenal gland (principal); E27.9 Disorder of adrenal gland, unspecified; K80.20 Calculus of gallbladder without cholecystitis without obstruction; M47.816 Spondylosis without myelopathy or radiculopathy, lumbar region; M43.8X6 Other specified deforming dorsopathies, lumbar region
CPT/HCPCS: 74170; Q9967

== ENCOUNTER → 2025-07-26 10:18 | Outpatient (CLI) | payer OTHER, SELFPAY ==
[2024-10-06 06:37] VITALS: BMI 29.7
== END ==
PROVIDERS: PCP Family Medicine; Referring Provider Internal Medicine; Visit Provider Internal Medicine
DX: I10 Essential (primary) hypertension (principal); I16.1 Hypertensive emergency
CPT/HCPCS: 36415; 82088; 83835; 84244

== ENCOUNTER → 2025-07-28 11:41 | Outpatient (CLI) | payer OTHER, SELFPAY ==
[2024-10-06 06:37] VITALS: BMI 29.7
--- NOTE | 2025-07-28 11:42 | DI.MRI.S_ITS ---
PROCEDURE: MR HEAD/BRAIN WO CON INDICATIONS: meningioma of cerebellum TECHNIQUE: Non-contrast axial T1 spin echo, axial T2 fast spin echo, sagittal and axial FLAIR, coronal T2 fast spin echo, axial gradient echo, axial diffusion and ADC through the brain. COMPARISON: [facility], MR, MR HEAD/BRAIN WO/W CON, 07/30/2024, 14:05. MR, MR HEAD/BRAIN WO/W CON, 07/24/2023, 11:09. MR, MR HEAD/BRAIN WO/W CON, 12/10/2022, 17:29. MR, MR HEAD/BRAIN WO/W CON, 09/04/2022, 14:26. FINDINGS: Image quality: Mildly degraded by patient motion artifact. CSF spaces: Ventricles appear symmetric in size and shape. Basal cisterns are patent. No extra-axial fluid collections. Brain: No intracranial bleeds or mass effects. No recurrent or residual right cerebellar pontine angle meningioma. There is mild cerebral volume loss for age. There are mild periventricular and deep white matter chronic small vessel ischemic changes. Brainstem appears normal. Diffusion-weighted images show no acute infarct. No chronic ischemic insults. Normal intravascular flow voids are present. Skull and face: Stable right suboccipital craniotomy changes. Calvarial bone marrow is normal in signal. Orbits are normal. Sinuses: Sinuses and mastoids are clear. IMPRESSION: No acute intracranial disease process. No evidence for recurrent or residual right cerebellar pontine angle meningioma. Dictated by: Alejandrina Tomlin MD, PhD on 07/28/2025 at 12:35 Approved by: Alejandrina Tomlin MD, PhD on 07/28/2025 at 12:38
== END ==
LOC: MRI 11:41
PROVIDERS: PCP Family Medicine; Visit Provider Neurological Surgery
DX: D32.0 Benign neoplasm of cerebral meninges (principal)
CPT/HCPCS: 70551

== ENCOUNTER → 2025-08-02 14:44 | Outpatient (CLI) | payer OTHER, SELFPAY ==
[2024-10-06 06:37] VITALS: BMI 29.7
== END ==
PROVIDERS: PCP Family Medicine; Referring Provider Family Medicine; Visit Provider Internal Medicine
DX: I16.1 Hypertensive emergency (principal)
CPT/HCPCS: 83835

== ENCOUNTER → 2025-08-24 13:44 | Outpatient (CLI) | payer OTHER, SELFPAY ==
[2024-10-06 06:37] VITALS: BMI 29.7
--- NOTE | 2025-08-24 13:46 | DI.ECHO.S_ITS ---
[place] : : [address] : [place] : : [id number] : : Phone: [phone] Echocardiogram Report + + :Name: JAIMIE WEBER Study Date: 08/24/2025 Height: 66 in : :[facility] ReadingLocation: Weight: 170 lb : : Gender: Female BSA: 1.9 m2 : :: 1945 Age: 79 yrs BP: 155/92 mmHg: :Reason For Study: HYPERTENSION : :Ordering Physician: GABINO, : :TAVO Performed By: Romulo Ramos : :Referring: TAVO LLOYD : + + Interpretation Summary Normal sinus rhythm and uncontrolled hypertension. Normal :LV size; mild concentric LVH; normal wall motion and LV systolic function. EF is 60-65%. Stage II diastolic dysfunction. Severe LA enlargement; otherwise normal chamber sizes. Mild aortic stenosis; otherwise no significant valvular abnormalities. Compared to prior study 05/24/2022 LA Volume index increased from 37 ml/m2 to 49.5 ml/m2. Diastolic dysfunction progressed from stage I to stage II. Procedure: A two-dimensional transthoracic echocardiogram with color flow and Doppler was performed. The study quality was technically good. Comparison is made with the echocardiogram of 05/24/2022. The patient was in normal sinus rhythm during the exam. Left Ventricle: The left ventricle is normal in size. Left ventricular wall thickness is mildly increased. There is no ventricular septal defect visualized. The ejection fraction is estimated to be 65-70%. There are no focal wall motion abnormalities. Grade II diastolic dysfunction with elevated left atrial pressure. Right Ventricle: The right ventricle is normal in size and function. Atria: The left atrium is severely dilated. Right atrial size is normal. There is no Doppler evidence for an interatrial shunt. Mitral Valve: There is mild mitral annular calcification. The mitral valve leaflets are mildly calcified. There is trace mitral regurgitation. Aortic Valve: The aortic valve is trileaflet. There is mild aortic valve sclerosis. The peak aortic velocity is 2.26 m/sec. The aortic valve mean gradient is 12.2 mmHg. There is mild aortic stenosis. No aortic regurgitation is present. Tricuspid Valve: The tricuspid valve leaflets are thin and pliable. There is mild tricuspid regurgitation. The right ventricular systolic pressure is estimated to be at least 34 mmHg based on an estimated right atrial pressure of 3 mm Hg. Pulmonic Valve: The pulmonic valve is not well seen, but is grossly normal. There is trace pulmonic regurgitation. Great Vessels: The aortic root is mildly dilated. The ascending aorta is mildly enlarged. The pulmonary artery is normal size. The IVC is of normal diameter and collapses greater than 50% with a sniff. This suggests a low right atrial pressure of 3 mm Hg. Pericardium/ Pleura There is no pericardial effusion. There is no pleural effusion. MMode/2D Measurements & Calculations LVIDd: 3.7 cm LVOT diam: 2.2 cm LVIDs: 2.1 cm Ao root diam: 3.8 cm FS: 43.8 % asc Aorta Diam: 3.7 cm EPSS: 0.78 cm Ao Arch Diam (Prox Trans): 2.4 cm IVSd: 1.1 cm LVPWd: 1.3 cm LV lazo. diameter/BSA (cm/m^2): 2.0 LV sys. diameter/BSA (cm/m^2): 1.1 LA A2 area: 24.6 cm2 RA long axis: 4.4 cm LA A4 area: 28.0 cm2 RA area: 15.2 cm2 LA length (vol): 6.3 cm RA vol: 44.1 ml LA vol: 92.5 ml RA : 23.6 ml/m2 LA vol index: 49.5 ml/m2 IVC diam: 1.6 cm RVD1 (basal): 3.2 cm RVD2 (mid): 2.5 cm TAPSE: 2.4 cm Doppler Measurements & Calculations Ao V2 max: 226.4 cm/sec LVOT Max Kash: 112.6 cm/sec Ao V2 mean: 168.7 cm/sec LV V1 max P.1 mmHg Ao max P.5 mmHg LV V1 VTI: 29.0 cm Ao mean P.2 mmHg BIMAL(I,D): 2.1 cm2 Ao V2 VTI: 52.7 cm BIMAL(V,D): 1.9 cm2 sev ratio: 0.55 BIMAL indexed to BSA (cm^2/m^2): 1.1 MV E max kash: 77.2 cm/sec TR max kash: 280.2 cm/sec MV A max kash: 118.6 cm/sec TR max P.4 mmHg MV E/A: 0.65 PA V2 max: 107.7 cm/sec Med Peak E' Kash: 4.2 cm/sec PA V2 mean: 73.0 cm/sec E/E' med: 18.5 PA mean P.4 mmHg Lat Peak E' Kash: 3.6 cm/sec PA pr(Accel): 51.6 mmHg E/E' lat: 21.3 E/e' average: 19.9 MV dec time: 0.25 sec SV(ADRYAN): 111.8 ml Electronically signed by: Lucero Loya M.D. on Reading Physician:09/01/2025 06:35 AM
== END ==
LOC: ECHO 13:45
PROVIDERS: Dermatology; PCP Family Medicine; Referring Provider Nurse Practitioner Family; Visit Provider Nurse Practitioner Family
DX: I08.2 Rheumatic disorders of both aortic and tricuspid valves (principal); I77.810 Thoracic aortic ectasia; I77.89 Other specified disorders of arteries and arterioles; I10 Essential (primary) hypertension; R21 Rash and other nonspecific skin eruption; L24.9 Irritant contact dermatitis, unspecified cause; L23.89 Allergic contact dermatitis due to other agents
CPT/HCPCS: 36415; 93306